=== PATIENT | male | born 1940 | race Caucasian/White ===

== ENCOUNTER 2024-08-20 08:00 | Inpatient (IN) | payer MEDICARE, SELFPAY ==
[2024-08-19 22:29] VITALS: BP 156/78
[2024-08-19] MEDS: TYLENOL 650 MG PO (22:39)
[2024-08-19 22:52] LABS: % Basophils 0.1 % (0-2); % Lymphocytes 5.6 % (20.5-51.1); % Neutrophils 78.3 % (42.2-75.2); Absolute Eosinophils 0.1 10^3/uL (0-0.7); Absolute Immature Granulocytes 0.1 10^3/uL (0-0.05); Absolute Lymphocytes 0.8 10^3/uL (1.2-3.4); Absolute Monocytes 1.9 10^3/uL (0.1-0.6); Absolute Neutrophils 10.6 10^3/uL (1.4-6.5); Hematocrit 29.1 % (39.0-52.0); Hemoglobin 10.2 g/dL (13.0-18.0); Mean Corp Hgb Conc. 35.1 g/dL (33.0-37.0); Mean Corpuscular Volume 88.4 fL (80.0-94.0); Mean Platelet Volume 8.4 fL (7.4-10.4); Nucleated Red Blood Cells % 0 % (-); Platelet Count 209 10^3/uL (130-400); Red Blood Cell Count 3.29 10^6/uL (4.70-6.10); White Blood Cell Count 13.5 10^3/uL (4.8-10.8)
[2024-08-19 22:59] LABS: Lactic Acid 0.9 mmol/L (0.7-2.0)
[2024-08-19 23:08] LABS: ALT (SGPT) 17 U/L (0-50); AST (SGOT) 25 U/L (17-59); Albumin 4.1 g/dl (3.5-5.0); Alkaline Phosphatase 87 U/L (38-126); Blood Urea Nitrogen 24 mg/dl (9-20); Calcium 8.7 mg/dl (8.4-10.2); Carbon Dioxide 24 mmol/L (22-30); Chloride 104 mmol/L (98-107); Glucose 113 mg/dl (70-99); Potassium 3.8 mmol/L (3.5-5.1); Sodium 141 mmol/L (135-145); Total Bilirubin 0.5 mg/dl (0.2-1.3); eGFR 58.89
[2024-08-19 23:50] VITALS: BMI 25.2
[2024-08-20] VITALS (7 sets, daily range): BP systolic 130–177; BP diastolic 65–133; PULSE 84–108
--- NOTE | 2024-08-20 00:10 | ED.GENMED ---
History of Present Illness
<RENO Mcclain - Last Filed: 08/20/24 05:22>
General
Chief Complaint: Skin Problem
Source: patient and family
Exam Limitations: none
Time Seen by Provider: 08/19/24 23:41
Nursing documentation reviewed up to this point in time: agreed with
History of Present Illness
History of Present Illness:
Patient is an 84yo M w/ recently diagnosed cellulitis who presents to ED w/ worsening fever. Sxs started last night w/ redness, swelling, and warmth of L lower leg, fever of 101, and 1 episode of vomiting. Pt went to PCP earlier today and was
started on Keflex and doxycycline. Took 1 dose of each before sxs worsened. Notes PCP was considering admitting pt. Told to go to ER if fever increases or redness/swelling/warmth expands. Reports fever of 102. Pt states he feels fine and does not
currently feel any pain in leg. Pt's family noticed on arrival that redness has spread up leg. He denies increased pain, chest pain, SOB, BEGUM, N/V/D/C. Family also notes concern about dark area on foot that has expanded since earlier today. Looks
like bruising but denies any possibility of injury.
Past History
<Finesse Ortega DO - Last Filed: 08/20/24 01:11>
Past History
ED Past Medical History: Other (Guillain-Cobos�)
ED Past Surgical History: Bowel resection, Orthopedic (Knee replacement) and Other (Eye surgery)
Social History
Tobacco: Non-smoker
Alcohol: None
Drug: None
Personal:
Living: with family
Employment: Retired
Review of Systems
<RENO Mcclain - Last Filed: 08/20/24 05:22>
Review of Systems
Constitutional: Reports fever; Denies fatigue or chills
Respiratory: Denies cough or trouble breathing
Cardiac: Denies chest pain or palpitations
ABD/GI: Denies abdominal pain, nausea, vomiting, diarrhea or constipated
Musculoskeletal: Reports edema; Denies joint pain or muscle pain
Neurological: Denies dizzy, headache or numbness
<Finesse Ortega DO - Last Filed: 08/20/24 01:11>
Review of Systems
Allergies reviewed?: Yes
Phy Exam
<RENO Mcclain - Last Filed: 08/20/24 05:22>
General Physical Exam
General Presentation: no apparent distress
General age: appears stated age
General Skin: warm and dry
General Habitus: elderly
General Mental: alert
Cardiovascular Exam
Cardiovascular Exam: regular rate/rhythm, no edema, no gallop and no murmur
Pulmonary Exam
Pulmonary Exam: lungs clear, no respiratory distress, no rales, no crackles, no rhonchi and no wheezing
Neurological Exam
Neurological Exam: alert, oriented x3, no motor deficits and no sensory deficits
Musculoskeletal Exam
Musculoskeletal Exam: edema (erythema, edema, warmth of L foot and lower leg continuing of medial leg) and other (Unable to fully assess pulses due to tenderness. Pt able to move toes. )
<Finesse Ortega DO - Last Filed: 08/20/24 01:11>
Physical Exam
Physical Exam:
Temperature 101.1
Sepsis
<RENO Mcclain - Last Filed: 08/20/24 05:22>
Sepsis Screening
Sepsis Assessment: Sepsis
Sepsis Screen
Sepsis Screen: Sepsis
Date: 08/20/24
Time: 05:22
Course
<RENO Mcclain - Last Filed: 08/20/24 05:22>
Orders/Labs/Results
Orders:
Orders
08/19/24 22:34
Acetaminophen [Tylenol] 650 mg PO NOW STA
08/19/24 22:40
Complete Blood Count/With Diff Urgent
Comprehensive Metabolic Panel Urgent
Lactic Acid Urgent
08/20/24 01:04
Piperacillin/Tazo 4.5 Gram [Zosyn] 4.5 gram in 100 ml IV NOW
Vancomycin [Vancocin] 2,000 mg 0.9% Sodium Chloride 500 ml [Nss] 500 ml IV NOW
08/20/24 01:32
Vancomycin [Vancocin] 2,000 mg 0.9% Sodium Chloride 500 ml [Nss] 500 ml IV NOW
08/20/24 01:34
Blood Culture Q30M
SHANTI Source: Blood/Venous
Specimen Description:
08/20/24 01:42
Blood Culture Q30M
SHANTI Source: Blood/Venous
Specimen Description:
08/20/24 02:53
Admit/Transfer Patient As Directed
Co-Sign Provider:
Level of Care: Inpatient admission
Assign to:: Medical/Surgical
Physician / Group: Alonso
Diagnosis: LLE Cellulitis / Sepsis
Reason for Hospitalization: LLE Cellulitis / Sepsis
Expected length of stay greater than two midnights?: Yes
ELOS- Estimated Length of Stay in days: 2
I certify the patient meets the requirements for IP care: Yes
PRN Pain Medication Management As Directed
May give lesser potent ordered pain med per pt: Yes
preference::
Protocol:: Medication orders for pain may be administered in a
manner that supports deferring to patient preference
when the pt is:
- Requesting an ordered lesser potent pain medication.
Least to most potent pain medications are defined
as: acetaminophen < NSAID < tramadol < opioids
(morphine, oxycodone, hydromorphone).
- Requesting a lesser dose of the same medication IF
ORDERED.
- Requesting a less intrusive route of administration
if both routes are prescribed by the provider (PO <
IV).
08/20/24 02:54
Code Status As Directed
Resuscitation Status: Full Code
08/20/24 03:40
Acetaminophen [Tylenol] 650 mg PO Q4HPRN PRN
Morphine Sulfate 2 mg IV Q4HPRN PRN
Polyethylene Glycol Powder [Miralax] 17 grams PO DAILY PRN
Zolpidem Tartrate [Ambien] 10 mg PO HSPRN PRN
08/20/24 03:40
Iron Routine
Total Iron Binding Routine
Activity As Directed
Activity Level: Ambulate
With Assistance
Bladder Scan As Directed
Follow Bladder Retention/Intermittent Cath Algorithm?: Yes
PRN if no void in __ hours: 6
Frequency: Per Retention Algorithm
If Bladder Scan Result >: 400
then:: Straight cath
I/O [Intake/ Output] As Directed
Frequency: Per unit guidelines
Orthostatic Vital Signs As Directed
Orthostatic VS Frequency: BID
Straight Cath As Directed
Frequency: Per Retention Algorithm
Additional Instructions: straight cath as needed per acute urinary retention algorithm for 24 hrs
Additional Instructions: for bladder scan greater than 400 mL
Vital Signs As Directed
Frequency: Per unit guidelines
DX Deep Vein Thrombosis Video Routine
08/20/24 Breakfast
Regular
Basic Metabolic Panel IN AM
Complete Blood Count/No Diff IN AM
CeFAZolin 2 GRAM [Ancef] 2 grams in 10 ml IV Q8H
08/20/24 08:00
alfuzosin 10 mg PO DAILY
dutasteride 0.5 mg PO DAILY
lisinopril 20 mg PO DAILY
08/20/24 18:00
Enoxaparin Sodium [Lovenox] 40 mg SC QPM
Abnormal Lab Results
08/19/24
22:40
WBC 13.5 H 10^3/uL
(4.8-10.8)
RBC 3.29 L 10^6/uL
(4.70-6.10)
Hgb 10.2 L g/dL
(13.0-18.0)
Hct 29.1 L %
(39.0-52.0)
Abs Immat Gran (auto) 0.1 H 10^3/uL
(0-0.05)
Absolute Neuts (auto) 10.6 H 10^3/uL
(1.4-6.5)
Absolute Lymphs (auto) 0.8 L 10^3/uL
(1.2-3.4)
Absolute Monos (auto) 1.9 H 10^3/uL
(0.1-0.6)
Immature Gran % 1.0 H %
(0-0.5)
Neutrophils % 78.3 H %
(42.2-75.2)
Lymphocytes % 5.6 L %
(20.5-51.1)
Monocytes % 14.0 H %
(1.7-9.3)
BUN 24 H mg/dl
(9-20)
Glucose 113 H mg/dl
(70-99)
08/19/24 22:40
08/19/24 22:40
Vital Signs
Initial and Last Documented VS:
Initial Vital Signs
Temp Pulse Resp BP Pulse Ox
101.1 F H 107 20 156/78 98
08/19/24 22:29 08/19/24 22:29 08/19/24 22:29 08/19/24 22:29 08/19/24 22:29
Last Documented Vital Signs
Temp Pulse Resp BP Pulse Ox
98.3 F 96 20 132/68 97
08/20/24 02:40 08/20/24 02:40 08/20/24 02:40 08/20/24 02:40 08/20/24 02:40
<Finesse Ortega, DO - Last Filed: 08/20/24 01:11>
Orders/Labs/Results
Orders:
Orders
08/19/24 22:34
Acetaminophen [Tylenol] 650 mg PO NOW STA
08/19/24 22:40
Complete Blood Count/With Diff Urgent
Comprehensive Metabolic Panel Urgent
Lactic Acid Urgent
08/20/24 01:04
Piperacillin/Tazo 4.5 Gram [Zosyn] 4.5 gram in 100 ml IV NOW
Vancomycin [Vancocin] 2,000 mg 0.9% Sodium Chloride 500 ml [Nss] 500 ml IV NOW
08/20/24 01:32
Vancomycin [Vancocin] 2,000 mg 0.9% Sodium Chloride 500 ml [Nss] 500 ml IV NOW
08/20/24 01:34
Blood Culture Q30M
SHANTI Source: Blood/Venous
Specimen Description:
08/20/24 01:42
Blood Culture Q30M
SHANTI Source: Blood/Venous
Specimen Description:
08/20/24 02:53
Admit/Transfer Patient As Directed
Co-Sign Provider:
Level of Care: Inpatient admission
Assign to:: Medical/Surgical
Physician / Group: Alonso
Diagnosis: LLE Cellulitis / Sepsis
Reason for Hospitalization: LLE Cellulitis / Sepsis
Expected length of stay greater than two midnights?: Yes
ELOS- Estimated Length of Stay in days: 2
I certify the patient meets the requirements for IP care: Yes
PRN Pain Medication Management As Directed
May give lesser potent ordered pain med per pt: Yes
preference::
Protocol:: Medication orders for pain may be administered in a
manner that supports deferring to patient preference
when the pt is:
- Requesting an ordered lesser potent pain medication.
Least to most potent pain medications are defined
as: acetaminophen < NSAID < tramadol < opioids
(morphine, oxycodone, hydromorphone).
- Requesting a lesser dose of the same medication IF
ORDERED.
- Requesting a less intrusive route of administration
if both routes are prescribed by the provider (PO <
IV).
08/20/24 02:54
Code Status As Directed
Resuscitation Status: Full Code
08/20/24 03:40
Acetaminophen [Tylenol] 650 mg PO Q4HPRN PRN
Morphine Sulfate 2 mg IV Q4HPRN PRN
Polyethylene Glycol Powder [Miralax] 17 grams PO DAILY PRN
Zolpidem Tartrate [Ambien] 10 mg PO HSPRN PRN
08/20/24 03:40
Iron Routine
Total Iron Binding Routine
Activity As Directed
Activity Level: Ambulate
With Assistance
Bladder Scan As Directed
Follow Bladder Retention/Intermittent Cath Algorithm?: Yes
PRN if no void in __ hours: 6
Frequency: Per Retention Algorithm
If Bladder Scan Result >: 400
then:: Straight cath
I/O [Intake/ Output] As Directed
Frequency: Per unit guidelines
Orthostatic Vital Signs As Directed
Orthostatic VS Frequency: BID
Straight Cath As Directed
Frequency: Per Retention Algorithm
Additional Instructions: straight cath as needed per acute urinary retention algorithm for 24 hrs
Additional Instructions: for bladder scan greater than 400 mL
Vital Signs As Directed
Frequency: Per unit guidelines
DX Deep Vein Thrombosis Video Routine
08/20/24 Breakfast
Regular
Basic Metabolic Panel IN AM
Complete Blood Count/No Diff IN AM
CeFAZolin 2 GRAM [Ancef] 2 grams in 10 ml IV Q8H
08/20/24 08:00
alfuzosin 10 mg PO DAILY
dutasteride 0.5 mg PO DAILY
lisinopril 20 mg PO DAILY
08/20/24 18:00
Enoxaparin Sodium [Lovenox] 40 mg SC QPM
Abnormal Lab Results
08/19/24
22:40
WBC 13.5 H 10^3/uL
(4.8-10.8)
RBC 3.29 L 10^6/uL
(4.70-6.10)
Hgb 10.2 L g/dL
(13.0-18.0)
Hct 29.1 L %
(39.0-52.0)
Abs Immat Gran (auto) 0.1 H 10^3/uL
(0-0.05)
Absolute Neuts (auto) 10.6 H 10^3/uL
(1.4-6.5)
Absolute Lymphs (auto) 0.8 L 10^3/uL
(1.2-3.4)
Absolute Monos (auto) 1.9 H 10^3/uL
(0.1-0.6)
Immature Gran % 1.0 H %
(0-0.5)
Neutrophils % 78.3 H %
(42.2-75.2)
Lymphocytes % 5.6 L %
(20.5-51.1)
Monocytes % 14.0 H %
(1.7-9.3)
BUN 24 H mg/dl
(9-20)
Glucose 113 H mg/dl
(70-99)
08/19/24 22:40
08/19/24 22:40
Vital Signs
Initial and Last Documented VS:
Initial Vital Signs
Temp Pulse Resp BP Pulse Ox
101.1 F H 107 20 156/78 98
08/19/24 22:29 08/19/24 22:29 08/19/24 22:29 08/19/24 22:29 08/19/24 22:29
Last Documented Vital Signs
Temp Pulse Resp BP Pulse Ox
98.3 F 96 20 132/68 97
08/20/24 02:40 08/20/24 02:40 08/20/24 02:40 08/20/24 02:40 08/20/24 02:40
<RENO Mcclain - Last Filed: 08/20/24 05:22>
MDM/Problems Addressed
Differential Diagnosis Includes:
cellulitis, lymphangitis
<Finesse Ortega DO - Last Filed: 08/20/24 01:11>
MDM/Problems Addressed
MDM/Problems Addressed:
84-year-old male with left lower extremity cellulitis. Normal pulses. Do not suspect TEN. Negative lactate, however febrile and leukocytosis. Rapidly progressing infection. IV Zosyn and vancomycin ordered. Admit to hospitalist.
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
<RENO Mcclain - Last Filed: 08/20/24 05:22>
*Critical Care Note
Total Time (30-74mins, 75-104mins- exclusive of procedures): Not Applicable
<Finesse Ortega DO - Last Filed: 08/20/24 01:11>
*Pulse Oximetry
Patient hypoxic: no
<Finesse Ortega DO - Last Filed: 08/20/24 01:11>
Patient Management
Social determinants of health affecting care: Living situation and Strong social support
Discussion with other providers: Hospitalist
Escalation/DeEscalation of care consider admission/obs:
Admit indicated
ED Attending Note
<RENO Mcclain - Last Filed: 08/20/24 05:22>
-
Portions of this chart may have been created with voice recognition software.� Occasional wrong word or��sound alike� substitutions may have occurred due to the inherent limitations of voice recognition software.
<Finesse Ortega, DO - Last Filed: 08/20/24 01:11>
ED Attending Note
Patient seen and examined by attending physician: Yes
I performed a history and physical exam of patient and discussed management with resident, I reviewed resident's note and agree with documented findings and plan of care.: Yes
ED Attending Note:
I have reviewed and agree with history and treatment plan by Anika Mercedes.
Physical Exam
General: Temperature 101.1
Neck: supple. no meningeal signs. normal posterior pharynx
Heart: s1/s2 regular rate and rhythm, no murmur. equal radial
pulses.
HEENT: Pupils equal round reactive to light, EOMI
Lungs: no acute respiratory distress. clear bilaterally
Abdomen: normal bowel sounds. not tender. no CVAT
Neuro: alert and oriented. no focal neurological deficits cranial nerves II through XII intact
Skin: Erythema and cellulitis left foot extending to left thigh
Psychiatric: well kept. interactive and cooperative
Extremities: no edema. no calf tenderness. negative homans. good distal pulses
Discharge Plan
Departure
Patient Disposition: Admit
Date of Disposition: 08/20/24
Time of Disposition: 01:11
Admit to: Med/Surg
Presentation/result/management discussed w/ accepting MD/DO: Hospitalist
Patient with high blood pressure during this ER visit?: Yes
Condition: Fair
Discharge Problem:
Cellulitis of left lower extremity, Fever
Interventions
Interventions:
*Risk Screen - Suicide Last Done: 08/20/24 00:16
*General Assessment Last Done: 08/19/24 22:29
*Neglect/Abuse Screening Last Done: 08/20/24 00:33
ED- Fall Risk Assessment Last Done: 08/19/24 23:58
*ED COVID-19 Vaccine History Last Done: 08/19/24 23:58
ED-Skin Assessment Last Done: 08/19/24 23:58
Assessment and Plan (No Qualifiers)
<RENO Mcclain - Last Filed: 08/20/24 05:22>
Assessment and Plan
(1) Cellulitis of left lower extremity:
Status: Acute
Comment:
rapidly progressing infx - increased fever & redness despite PO abx
Plan:
start IV vancomycin and zosyn
admit to [facility]
<Finesse Ortega DO - Last Filed: 08/20/24 01:11>
Assessment and Plan
(1) Cellulitis of left lower extremity:
[2024-08-20] MEDS: ZOSYN 100 IV (01:16)
[2024-08-20] MEDS: VANCOCIN 540 MG IV (02:43)
--- NOTE | 2024-08-20 02:56 | HPS.HSE ---
Family Physician
-
Family Physician: Raj Brownlee MD
Chief Complaint
-
LLE Pain, Redness
History of Present Illness
Patient is an 84y M with PMH significant for hypertension, BPH and DDD / sciatic pain who presents to ED complaining of L foot and leg pain, swelling and redness x 24 hours. Patient states that he was feeling well until yesterday afternoon when
he noted redness and discomfort in the L foot. Last PM he felt feverish / chilled and had an episode of emesis. He was seen by his PCP today and noted that the redness had extended proximally into his LLE. Patient was placed on oral abx (Keflex
and doxycycline) and advised to present to the ED for further evaluation should his symptoms continue to progress.
Patient and family appreciated continued extension of erythema proximally and presented to the ED for further evaluation.
Patient denies any recent trauma, injury, insult, etc to the L foot prior to onset of his symptoms.
Medical History
Past Medical History
Past Medical History: Reports Other
Additional Past Medical History:
Hypertension
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
BPH
Colon Cancer (Surgery and Chemo)
GERD
DDD / Sciatica
Past Surgical History: Reports Other
Additional Past Surgical History:
Left Hemicolectomy
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
Pyloric Stenosis Repair
Hernia Repair
Knee Arthroscopy
Cataracts
Social History
Tobacco: Former Smoker (Quit smoking 60 years ago. Minimal total use.)
Alcohol: None
Drug: None
Family History
Family History: Not pertinent
Allergies / Home Medications
Allergies reflects when Allergies were last updated in [facility].
Home Medications with original date entered in [facility]
Allergy/Medication List:
Allergies
Allergy/AdvReac Type Severity Reaction Status Date / Time
iodine Allergy 'Deadly' Verified 08/19/24 22:29
Home Medications
alfuzosin 10 mg tablet,extended release 24 hr 10 mg PO DAILY 08/20/24
dutasteride 0.5 mg PO DAILY 08/20/24
fluticasone propionate 50 mcg/actuation nasal spray,suspension 1 spray intranasal DAILY 08/20/24
lisinopril 20 mg PO DAILY 08/20/24
polyethylene glycol 3350 17 gram oral powder packet (Miralax) 1 g PO Q48H 08/20/24
zolpidem 10 mg tablet 10 mg PO DAILY 08/20/24
Review of Systems
-
History Source: Patient
A 12 point ROS was completed and negative except as noted: Yes
Constitutional: Reports Fever; Denies Fatigue or Chills
EENT: Denies Sore Throat
Respiratory: Denies Cough or Trouble Breathing
Cardiac: Denies Chest Pain or Palpitations
Abdomen/GI: Reports Nausea and Vomiting; Denies Abdominal Pain or Diarrhea
: Denies Dysuria, Frequency or Flank Pain
Musculoskeletal: Reports Edema; Denies Joint Pain
Skin: Reports Other (Redness / Foot pain)
Neurological: Denies Dizzy or Headache
Psych: Denies Depression or Anxiety
Physical Exam
Vital Signs
Vital Signs
Temp Pulse Resp BP Pulse Ox
98.3 F 96 20 132/68 97
08/20/24 02:40 08/20/24 02:40 08/20/24 02:40 08/20/24 02:40 08/20/24 02:40
Physical Exam
General: Other (84y M in no acute distress.)
HEENT: Moist mucous membranes
Respiratory: Clear; No Wheezes, Rales or Rhonchi
Cardiac: S1/S2 and Regular Rhythm; No Murmur
GI: Soft, Non Tender, Non Distended and Normal Bowel Sounds
Musculoskeletal: No Clubbing and No Cyanosis
Skin: Other (Erythema, induration and increased warmth of the L foot with purpuric / ecchymotic area on the dorsum of the foot. Erythema / warmth extends proximally along the posterior leg to the thigh.)
Neuro: AO x 3
Laboratory Results
-
08/19/24 22:40
08/19/24 22:40
Laboratory Results
Lactic Acid 0.9 mmol/L (0.7-2.0) 08/19/24 22:40
Total Bilirubin 0.5 mg/dl (0.2-1.3) 08/19/24 22:40
AST 25 U/L (17-59) 08/19/24:40
ALT 17 U/L (0-50) 08/19/24:40
Alkaline Phosphatase 87 U/L (38-126) 08/19/24 22:40
Impression/Plan
-
A/P: Patient is an 84y M with PMH significant for HTN and BPH who presents to ED complaining of LLE pain, swelling and redness that has been rapidly progressive over the past 24 hours.
LLE Cellulitis
Sepsis secondary to the above
- Admit for further evaluation and treatment.
- Patient presents with fever, leukocytosis and tachycardia with clinically evident LLE cellulitis.
- Continue IV abx with Ancef for now and follow for clinical improvement.
- Transition back to PO regimen once clear clinical improvement is appreciated.
- Supportive care including pain control, etc.
- Follow for any new / worsening symptoms.
Benign Hypertension
- Stable. Continue outpatient regimen and adjust as needed.
BPH
- Stable. Continue outpatient medications.
- Bladder scan protocol / straight cath if needed.
Normocytic Anemia
- No recent baseline - last labs on file were several years ago.
- No reported bleeding / gross blood loss.
- Check iron studies, etc.
- Follow for changes in H&H.
DVT Prophylaxis: Lovenox
Code Status: Full
[2024-08-20] MEDS: MORPHINE SULFATE 2 MG IV ×2 (04:36→21:47)
[2024-08-20] MEDS: TYLENOL 650 MG PO (04:36)
[2024-08-20 05:59] LABS: Hematocrit 26.4 % (39.0-52.0); Hemoglobin 9.2 g/dL (13.0-18.0); Mean Corp Hgb Conc. 34.8 g/dL (33.0-37.0); Mean Corpuscular Hgb 30.9 pg (27.0-31.0); Mean Corpuscular Volume 88.6 fL (80.0-94.0); Mean Platelet Volume 8.6 fL (7.4-10.4); Platelet Count 203 10^3/uL (130-400); Red Blood Cell Count 2.98 10^6/uL (4.70-6.10); Red Cell Dist. Width 13.1 % (11.5-14.5); White Blood Cell Count 12.8 10^3/uL (4.8-10.8)
[2024-08-20] MEDS: ANCEF 10 IV ×3 (06:03→21:27)
[2024-08-20 06:12] LABS: Blood Urea Nitrogen 22 mg/dl (9-20); Calcium 8.1 mg/dl (8.4-10.2); Carbon Dioxide 21 mmol/L (22-30); Chloride 107 mmol/L (98-107); Estimated Creatinine Clearance 49 ml/min; Glucose 109 mg/dl (70-99); Potassium 3.8 mmol/L (3.5-5.1); Sodium 142 mmol/L (135-145); eGFR 58.89
[2024-08-20 06:17] LABS: Iron < 20 ug/dl (49-181); Total Iron Binding Capacity 211 ug/dl (261-462)
[2024-08-20] MEDS: PROSCAR 5 MG PO (08:54)
[2024-08-20] MEDS: ZESTRIL 20 MG PO (08:54)
--- NOTE | 2024-08-20 13:23 | CM ---
CM following re: discharge planning.
Reviewed pt's chart, met with pt.
Pt is an 84 year old male, admitted with OBS status and primary dx of Cellulitis. OBS status explained to the pt, pt expressed understanding. FELICIANO letter signed, placed on chart, pt has a copy.
Pt reports he lives with spouse in an apartment 2nd floor with elevator, has 2 supportive children. Pt described himself as independent in all areas [employer], uses a cane as needed and likes shopping. No VN or SNF history.
PCP: Raj Esparza
[facility]
D/C plan: home with anticipated no needs. Family to transport at discharge. Pt stated he does not drive anymore.
CM will follow with discharge plan updates as hospitalization progresses
--- NOTE | 2024-08-20 13:42 | W.PN.HOSP.TC ---
Today's Communication/Plan
-
cont IV ancef
Assessment / Plan
Assessment / Plan
pt is an 84 year old male
LLE Cellulitis with Sepsis (POA)--apparently left leg red all the way up to groin (ink markings for outline present)--much improved today--cont ancef--may localize to foot--consider podiatry consult
Essential Hypertension - Stable. Continue outpatient regimen and adjust as needed.
BPH - Stable. Continue outpatient medications.
Normocytic Anemia--likely of chronic disease--iron studies show low iron BUT no ferritin ordered - No recent baseline - last labs on file were several years ago - No reported bleeding / gross blood loss.
DVT Prophylaxis: Lovenox
Code Status: Full
Anticipated Discharge: 24 - 48 hours
Subjective/Interval History
-
Date of Service: August 20, 2024
pt 'bored' being here
Objective Data
-
Labs:
Laboratory Results
08/20/24
05:24
WBC 12.8 H
Hgb 9.2 L
Hct 26.4 L
Plt Count 203
Sodium 142
Potassium 3.8
Chloride 107
Carbon Dioxide 21 L
BUN 22 H
Creatinine 1.2
Glucose 109 H
Calcium 8.1 L
Vital Signs:
max temp for 24 hours
08/19/24
22:29
Temp 101.1 F H
Vital Signs
Temp Pulse Resp BP Pulse Ox
97.9 F 75 20 140/65 98
08/20/24 07:55 08/20/24 08:54 08/20/24 07:55 08/20/24 08:54 08/20/24 07:55
I&O
08/19/24 08/20/24 08/21/24
06:59 06:59 05:59
Intake Total 310 / 310
Balance 310 / 310
Review of Systems
-
All other systems: Reviewed and negative
Physical Exam
-
General: Well Developed, Well Nourished and No Apparent Distress
HEENT: Normocephalic and Atraumatic
Respiratory: Clear to Auscultation; Negative Wheezes or Rhonchi
Cardiac: Regular Rhythm and S1/S2; Negative Murmur
GI: Soft, Nontender, Nondistended and Normal Bowel Sounds
Musculoskeletal: No Clubbing, No Cyanosis and No Edema
Neuro: Awake
Psych: Calm
[2024-08-20] MEDS: LOVENOX 40 MG SC (17:17)
[2024-08-21] MEDS: MORPHINE SULFATE 2 MG IV ×2 (04:22→21:19)
[2024-08-21] MEDS: ANCEF 10 IV ×3 (05:01→21:19)
[2024-08-21 06:32] LABS: Hematocrit 28.7 % (39.0-52.0); Mean Corp Hgb Conc. 34.8 g/dL (33.0-37.0); Mean Corpuscular Hgb 32.1 pg (27.0-31.0); Mean Platelet Volume 8.8 fL (7.4-10.4); Platelet Count 225 10^3/uL (130-400); Red Blood Cell Count 3.12 10^6/uL (4.70-6.10); Red Cell Dist. Width 12.9 % (11.5-14.5); White Blood Cell Count 8.4 10^3/uL (4.8-10.8)
[2024-08-21 06:58] LABS: Blood Urea Nitrogen 20 mg/dl (9-20); Calcium 8.5 mg/dl (8.4-10.2); Carbon Dioxide 23 mmol/L (22-30); Chloride 106 mmol/L (98-107); Estimated Creatinine Clearance 62 ml/min; Glucose 96 mg/dl (70-99); Magnesium 2.1 mg/dl (1.6-2.3); Sodium 143 mmol/L (135-145); eGFR > 60.00
[2024-08-21 07:50] VITALS: BP 133/94
[2024-08-21] MEDS: ZESTRIL 20 MG PO (08:44)
[2024-08-21] MEDS: PROSCAR 5 MG PO (08:44)
[2024-08-21] MEDS: FLOMAX 0.4 MG PO (08:44)
[2024-08-21 10:30] VITALS: BP 120/78; PULSE 96
--- NOTE | 2024-08-21 11:56 | W.PN.HOSP.TC ---
Today's Communication/Plan
-
MRI L/S spine
decadron x1
will consult podiatry on Thursday
Assessment / Plan
Assessment / Plan
pt is an 84 year old male
LLE Cellulitis with Sepsis (POA)--apparently left leg red all the way up to groin (ink markings for outline present)--much improved--cont ancef--appears to be localizing to foot--consult podiatry Thursday
sciatic--seeing Dr. Freeman --will give one dose of IV decadron x1--will order MRI L/S spine--pt relays decreased sensation in groin since GBS in 1970.....
Essential Hypertension - Stable. Continue outpatient regimen and adjust as needed.
BPH - Stable. Continue outpatient medications.
Normocytic Anemia--likely of chronic disease--iron studies show low iron BUT no ferritin ordered - No recent baseline - last labs on file were several years ago - No reported bleeding / gross blood loss.
DVT Prophylaxis: Lovenox
Code Status: Full
Anticipated Discharge: 24 - 48 hours
Subjective/Interval History
-
Date of Service: August 21, 2024
pt c/o of severe sciatic pain and right wrist pain--has no c/o re: his foot
Objective Data
-
Labs:
Laboratory Results
08/21/24
05:54
WBC 8.4
Hgb 10.0 L
Hct 28.7 L
Plt Count 225
Sodium 143
Potassium 4.0
Chloride 106
Carbon Dioxide 23
BUN 20
Creatinine 1.0
Glucose 96
Calcium 8.5
Vital Signs:
max temp for 24 hours
08/20/24
23:30
Temp 99.1 F
Vital Signs
Temp Pulse Resp BP Pulse Ox
99.2 F 87 14 133/94 99
08/21/24 07:50 08/21/24 08:44 08/21/24 07:50 08/21/24 08:44 08/21/24 07:50
I&O
08/20/24 08/21/24 08/22/24
07:59 06:59 06:59
Intake Total
Output Total
Balance
Review of Systems
-
All other systems: Reviewed and negative
Musculoskeletal: Reports Other (sciatic and right wrist pain)
Physical Exam
-
General: Well Developed, Well Nourished, Appears in Distress and Pain
HEENT: Normocephalic and Atraumatic
Respiratory: Clear to Auscultation; Negative Wheezes or Rhonchi
Cardiac: Regular Rhythm and S1/S2; Negative Murmur
GI: Soft, Nontender, Nondistended and Normal Bowel Sounds
Musculoskeletal: No Clubbing, No Cyanosis and Other (left foot still swollen--red localizing to dorsum of foot)
Neuro: Awake
[2024-08-21] MEDS: DECADRON 10 MG IV (11:59)
[2024-08-21 12:39] LABS: Uric Acid 5.7 mg/dl (3.5-8.5)
[2024-08-21 15:30] VITALS: BP 167/84
[2024-08-21] MEDS: LOVENOX 40 MG SC (17:19)
[2024-08-21 17:41] VITALS: BP 167/84; PULSE 83
[2024-08-21] MEDS: AMBIEN 10 MG PO (21:19)
[2024-08-21 23:30] VITALS: BP 142/70
[2024-08-22] MEDS: MORPHINE SULFATE 2 MG IV ×2 (05:29→21:42)
[2024-08-22] MEDS: ANCEF 10 IV ×3 (05:30→21:44)
[2024-08-22 07:30] VITALS: BP 148/76
[2024-08-22 08:31] LABS: Hematocrit 27.5 % (39.0-52.0); Hemoglobin 9.7 g/dL (13.0-18.0); Mean Corp Hgb Conc. 35.3 g/dL (33.0-37.0); Mean Corpuscular Volume 90.8 fL (80.0-94.0); Mean Platelet Volume 8.7 fL (7.4-10.4); Platelet Count 238 10^3/uL (130-400); Red Blood Cell Count 3.03 10^6/uL (4.70-6.10); Red Cell Dist. Width 12.7 % (11.5-14.5); White Blood Cell Count 6.6 10^3/uL (4.8-10.8)
[2024-08-22 08:59] LABS: Blood Urea Nitrogen 21 mg/dl (9-20); Calcium 8.7 mg/dl (8.4-10.2); Carbon Dioxide 25 mmol/L (22-30); Chloride 105 mmol/L (98-107); Estimated Creatinine Clearance 62 ml/min; Glucose 104 mg/dl (70-99); Magnesium 2.1 mg/dl (1.6-2.3); Potassium 3.9 mmol/L (3.5-5.1); Sodium 144 mmol/L (135-145); eGFR > 60.00
[2024-08-22] MEDS: PROSCAR 5 MG PO (09:34)
[2024-08-22] MEDS: ZESTRIL 20 MG PO (09:34)
[2024-08-22] MEDS: FLOMAX 0.4 MG PO (09:34)
[2024-08-22] MEDS: TYLENOL 650 MG PO ×2 (09:39→23:09)
--- NOTE | 2024-08-22 14:03 | CM ---
Patient seen at bedside with physicians. Patient stated that he has voted prior to admission and does not need ballot. Patient is now INP and updated about status, provided IMM. Patient is for further testing and CM will continue to follow for
discharge planning needs.
Plan; home with VN; watch for possible IV antibiotics.
[2024-08-22 15:10] VITALS: BP 128/66
[2024-08-22] MEDS: LOVENOX 40 MG SC (17:15)
--- NOTE | 2024-08-22 18:16 | W.PN.HOSP.TC ---
Addendum entered and electronically signed by Keke Frey MD 08/22/24 19:21:
I saw and evaluated the patient independently. I reviewed the resident�s note and agree with findings and plan as documented by Dr. Szymanski.
GENERAL: well developed, well nourished, male in no apparent distress
HEENT: NC/AT
HEART: regular rate and rhythm, +S1, +S2
LUNGS : clear to auscultation bilaterally
ABDOM: soft, nontender, nondistended, + bowel sounds
EXT: no cyanosis, clubbing, or edema--left foot with improving redness but coalescing to dorsum of foot
NEUROLOGIC: grossly intact--back pain resolved
LLE Cellulitis with Sepsis (POA)--apparently left leg red all the way up to groin (ink markings for outline present)--much improved--cont ancef--appears to be localizing to foot--await podiatry input
sciatic--seeing Dr. 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
Essential Hypertension - Stable. Continue outpatient regimen and adjust as needed.
BPH - Stable. Continue outpatient medications.
Normocytic Anemia--likely of chronic disease--iron studies show low iron BUT no ferritin ordered - No recent baseline - last labs on file were several years ago - No reported bleeding / gross blood loss.
DVT Prophylaxis: Lovenox
Code Status: Full
Original Note:
Today's Communication/Plan
-
continue ancef, podiatry consult
Assessment / Plan
Assessment / Plan
84yo M with PMH sciatic pain (sees Dr. Freeman), essential hypertension, BPH who presented to ED 08/19/24 for worsening of LLE pain, swelling, redness. Prior to admission, he initially presented to PCP who prescribed oral keflex and doxycycline and
advised patient that if symptoms progress further to be evaluated at ED. Symptoms worsened over 24 hours.
LLE cellulitis with sepsis present on admission
- Prior documentation indicates LLE redness extended up to groin on admission
- Started on ancef on admission --> continue IV ancef
- Pain and redness significantly improved throughout leg however appears to be localizing to L dorsum of foot
- Podiatry consulted
Sciatic pain
- S/p IV decadron x1
- MRI lumbar/spine shows multilevel degenerative disc disease, multifocal spinal canal and neuroforaminal narrowing. Prominent edema of L lower paraspinal soft tissue/musculature- may represent muscular injury/strain.
- Continue supportive measures
Essential hypertension- Continue home lisinopril 20mg qd
BPH- Continue home alfuzosin, dutasteride (tamsulosin/flomax and finasteride while inpatient)
Normocytic anemia- likely anemia of chronic disease, iron studies show low Fe but no ferritin ordered. No signs/symptoms of bleeding/bruising/blood loss.
Code status: full
VTE ppx: lovenox
Diet: regular
Dispo planning: anticipate SNF PT following
Anticipated Discharge: 24 - 48 hours
Subjective/Interval History
-
Date of Service: August 22, 2024
No acute events overnight per nursing. Patient in MRI at time of AM rounds, seen in afternoon. Feeling well except for chronic sciatic pain. No complaints regarding left foot.
Objective Data
-
Labs:
Laboratory Results
08/22/24
07:56
WBC 6.6
Hgb 9.7 L
Hct 27.5 L
Plt Count 238
Sodium 144
Potassium 3.9
Chloride 105
Carbon Dioxide 25
BUN 21 H
Creatinine 1.0
Glucose 104 H
Calcium 8.7
Vital Signs:
Vital Signs
Temp Pulse Resp BP Pulse Ox
98.7 F 68 18 128/66 98
08/22/24 15:10 08/22/24 15:10 08/22/24 15:10 08/22/24 15:10 08/22/24 15:10
I&O
08/21/24 08/22/24 08/23/24
06:59 06:59 06:59
Intake Total 1380 / 1380 480 / 480
Output Total 500 / 500 400 / 400
Balance 880 / 880 80 / 80
Review of Systems
-
History Source: Patient
All other systems: Reviewed and negative
Physical Exam
-
General: Well Developed, Well Nourished, Appears in Distress and Conversant
HEENT: Normocephalic and Atraumatic
Respiratory: Non Labored Respirations
Cardiac: Regular Rhythm
GI: Soft, Nontender and Nondistended
Musculoskeletal: Other (left foot still swollen--red localizing to dorsum of foot)
Skin: Warm, Dry and Other (wound present L dorsum foot)
Neuro: Awake, Alert and Oriented
Psych: Calm and Intact Judgement/Insight
Data Reviewed
-
Labs: Labs Reviewed by me
[2024-08-22 23:21] VITALS: BP 128/81
[2024-08-22] MEDS: LIORESAL 5 MG PO (23:39)
[2024-08-23] MEDS: TYLENOL 1000 MG PO (00:34)
[2024-08-23] MEDS: ANCEF 10 IV ×3 (06:30→21:47)
[2024-08-23] MEDS: MORPHINE SULFATE 2 MG IV ×2 (06:30→10:46)
[2024-08-23 07:25] VITALS: BP 152/78
[2024-08-23] MEDS: FLOMAX 0.4 MG PO (07:49)
[2024-08-23] MEDS: ZESTRIL 20 MG PO (07:49)
[2024-08-23] MEDS: PROSCAR 5 MG PO (07:50)
[2024-08-23 07:52] LABS: Hematocrit 27.9 % (39.0-52.0); Hemoglobin 9.7 g/dL (13.0-18.0); Mean Corp Hgb Conc. 34.8 g/dL (33.0-37.0); Mean Corpuscular Hgb 30.8 pg (27.0-31.0); Mean Corpuscular Volume 88.6 fL (80.0-94.0); Mean Platelet Volume 8.7 fL (7.4-10.4); Platelet Count 263 10^3/uL (130-400); Red Blood Cell Count 3.15 10^6/uL (4.70-6.10); Red Cell Dist. Width 12.7 % (11.5-14.5); White Blood Cell Count 6.8 10^3/uL (4.8-10.8)
[2024-08-23 08:43] LABS: Blood Urea Nitrogen 22 mg/dl (9-20); Calcium 8.4 mg/dl (8.4-10.2); Carbon Dioxide 26 mmol/L (22-30); Chloride 104 mmol/L (98-107); Estimated Creatinine Clearance 62 ml/min; Glucose 109 mg/dl (70-99); Magnesium 1.9 mg/dl (1.6-2.3); Potassium 3.8 mmol/L (3.5-5.1); Sodium 144 mmol/L (135-145); eGFR > 60.00
--- NOTE | 2024-08-23 08:52 | W.PN.HOSP.TC ---
Addendum entered and electronically signed by Keke Frey MD 08/23/24 15:34:
I saw and evaluated the patient independently. I reviewed the resident�s note and agree with findings and plan as documented by Dr. Szymanski.
GENERAL: well developed, well nourished, male in no apparent distress
HEENT: NC/AT
HEART: regular rate and rhythm, +S1, +S2
LUNGS : clear to auscultation bilaterally
ABDOM: soft, nontender, nondistended, + bowel sounds
EXT: no cyanosis, clubbing, or edema--left foot with improving redness but coalescing to dorsum of foot
NEUROLOGIC: grossly intact--back pain resolved
LLE Cellulitis with Sepsis (POA)--apparently left leg red all the way up to groin (ink markings for outline present)--much improved--cont ancef--appears to be localizing to foot--await podiatry input--apprec ID input
sciatic--seeing Dr. Freeman --will give one dose of IV decadron x1, gave another x 1-- MRI L/S spine with chronic degenerative changes--pt relays decreased sensation in groin since GBS in 1970.....f/u with outpt ortho--PT/OT
Essential Hypertension - Stable. Continue outpatient regimen and adjust as needed.
BPH - Stable. Continue outpatient medications.
Normocytic Anemia--likely of chronic disease--iron studies show low iron BUT no ferritin ordered - No recent baseline - last labs on file were several years ago - No reported bleeding / gross blood loss.
DVT Prophylaxis: Lovenox
Code Status: Full
Original Note:
Today's Communication/Plan
-
foot xray, podiatry consult, ID consult, add gabapentin for sciatic pain
Assessment / Plan
Assessment / Plan
84yo M with PMH sciatic pain (sees Dr. Freeman), essential hypertension, BPH who presented to ED 08/19/24 for worsening of LLE pain, swelling, redness. Prior to admission, he initially presented to PCP who prescribed oral keflex and doxycycline and
advised patient that if symptoms progress further to be evaluated at ED. Symptoms worsened over 24 hours.
LLE cellulitis with sepsis present on admission
- Prior documentation indicates LLE redness extended up to groin on admission
- Started on ancef on admission --> continue IV ancef
- Pain and redness significantly improved throughout leg however appears to be localizing to L dorsum of foot
- Podiatry consulted, xray ordered for this AM
- Consult ID, appreciate recs
Sciatic pain
- S/p IV decadron x1
- MRI lumbar/spine shows multilevel degenerative disc disease, multifocal spinal canal and neuroforaminal narrowing. Prominent edema of L lower paraspinal soft tissue/musculature- may represent muscular injury/strain.
- Continue supportive measures
- Will add gabapentin 100mg BID
Essential hypertension- Continue home lisinopril 20mg qd
BPH- Continue home alfuzosin, dutasteride (tamsulosin/flomax and finasteride while inpatient)
Normocytic anemia- likely anemia of chronic disease, iron studies show low Fe but no ferritin ordered. No signs/symptoms of bleeding/bruising/blood loss.
Code status: full
VTE ppx: lovenox
Diet: regular
Dispo planning: anticipate SNF, PT following
Anticipated Discharge: 24 - 48 hours
Subjective/Interval History
-
Date of Service: August 23, 2024
Overnight, patient reports extremely poor sleep due significant pain in back/hip. Says the pain medications take the edge off but do not provide significant relief. Patient seen at bedside this morning while transferring from bed to stretcher with 2
person assist and walker. Complains of significant pain in back/hip. Otherwise no complaints, denies pain in foot.
Objective Data
-
Labs:
Laboratory Results
08/23/24
07:14
WBC 6.8
Hgb 9.7 L
Hct 27.9 L
Plt Count 263
Sodium 144
Potassium 3.8
Chloride 104
Carbon Dioxide 26
BUN 22 H
Creatinine 1.0
Glucose 109 H
Calcium 8.4
Vital Signs:
Vital Signs
Temp Pulse Resp BP Pulse Ox
97.6 F 92 18 152/78 98
08/23/24 07:25 08/23/24 07:25 08/23/24 07:25 08/23/24 07:25 08/22/24 23:21
I&O
08/22/24 08/23/24 08/24/24
06:59 06:59 06:59
Intake Total 1380 / 1380 720 / 720
Output Total 500 / 500 1150 / 1150
Balance 880 / 880 -430 / -430
Review of Systems
-
History Source: Patient
All other systems: Reviewed and negative
Physical Exam
-
General: Well Developed, Well Nourished, Appears in Distress (appears uncomfortable, in acute pain), Conversant and Other (exam limited by significant pain and patient transferring for xray foot)
HEENT: Normocephalic and Atraumatic
Respiratory: Non Labored Respirations
Neuro: Awake, Alert and Oriented
Psych: Calm and Intact Judgement/Insight
Data Reviewed
-
Labs: Labs Reviewed by me
[2024-08-23] MEDS: DECADRON 10 MG IV (10:00)
[2024-08-23] MEDS: NEURONTIN 100 MG PO ×2 (12:02→20:27)
[2024-08-23] MEDS: TYLENOL 650 MG PO ×3 (12:02→20:27)
--- NOTE | 2024-08-23 12:48 | PTCARENOTE ---
Patient unable to bear weight on left leg. Needs assistance of two people to get from recliner to stretcher. Complains of severe pain in left hip area that radiates down left leg. Patient given IV steroids as ordered and medicated with morphine IV.
Neurontin and tylenol also ordered and administered.
--- NOTE | 2024-08-23 13:33 | CON.ID ---
Consultation
-
Date/Time Consultation Requested: 08/23/2024 1149
Date/Time Consultation Performed: 08/23/2024 1330
Requesting Provider: Dr. Shantell Szymanski
Performing Provider: Dr. Sailaja Mark
Reason for Consultation: Cellulitis
Chief Complaint / Past History
Chief Complaint
Left foot redness and swelling
History of Present Illness
History obtained from patient and from family at bedside. He is an 84-year-old male with hypertension, left-sided lumbar radiculopathy, who presented to the ER on August 19 at midnight with left foot redness and swelling extending up his leg. He
noted left foot discomfort the afternoon of August 18. The redness spread up the leg. He had fevers and chills. He saw his primary care physician the morning of August 19. He was prescribed cephalexin 500 g every 6 hours and doxycycline. He
took 1 dose of each antibiotic. However the erythema continued to ascend up to his groin. He therefore came to the ER. He was febrile 101.1. White count of 13.5. He was started on IV cefazolin. The erythema has receded from the groin, leg and
now localized to the mid to forefoot. He noted blister formation on his foot. He denies injury or trauma to the foot. He does have athlete's foot and uses [id number] topical antifungal. No further fevers. White count has resolved. The
foot is not as bright red as previous. He complains of his left sciatica pain.
Past History
Additional Past Medical History:
HTN
left Sciatica
BPH
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
Colon Ca s/p left hemicolectomy, chemo
Pyloric stenosis repair
Hernia repair
Allergy History:
iodine Allergy (Verified 08/19/24 22:29)
'Deadly'
Medications Reviewed: Yes
Current Antibiotics:
Cefazolin d4
Social History
Tobacco: Former Smoker
Alcohol: None
Drug: None
Living: With Family
Family History
Family History: Not Pertinent
Review of Systems
Review of Systems
HEENT: Negative Sinus Problems, Headache or Pharyngitis
Cardiovascular: Negative Chest Pain or Dyspnea
Respiratory: Negative Dyspnea or Cough
Gasteroenterology: Negative Nausea, Vomiting or Diarrhea
Genital / Urological: Negative Dysuria or Flank Pain
Neurological: Negative Dizziness
All systems: All other systems were reviewed and were negative
Vital Signs
Temp Pulse Resp BP Pulse Ox
97.6 F 92 18 152/78 98
08/23/24 07:25 08/23/24 07:25 08/23/24 07:25 08/23/24 07:25 08/22/24 23:21
Physical Exam
Physical Exam
Constitutional: No Acute Distress and Comfortable
Eyes: No Conjunctival Hemorrhage and Sclera Anicteric
Cardiovascular: Regular Rate and S1/S2
Pulmonary: Clear
Gastrointestinal: Soft, Non Tender, Non Distended, Normal Bowel Sounds and Decreased Bowel Sounds
Genito-Urinary: Negative CVA Tenderness
Extremities: Edema (left foot 2+ edema), Erythema (Dorsal left foot; mild to mod erythema fore-foot to midfoot, mildly warm, + blister. + tinea toe webs. ) and Pulses (+ pedal pulses)
Neurological: AO x 3
Lab / Diagnostic Study Results
08/23/24 07:14
08/23/24 07:14
Abs Immat Gran (auto) 0.1 10^3/uL (0-0.05) H 08/19/24 22:40
Absolute Neuts (auto) 10.6 10^3/uL (1.4-6.5) H 08/19/24 22:40
Absolute Lymphs (auto) 0.8 10^3/uL (1.2-3.4) L 08/19/24 22:40
Absolute Monos (auto) 1.9 10^3/uL (0.1-0.6) H 08/19/24 22:40
Absolute Basos (auto) 0.0 10^3/uL (0-0.2) 08/19/24 22:40
Immature Gran % 1.0 % (0-0.5) H 08/19/24 22:40
Neutrophils % 78.3 % (42.2-75.2) H 08/19/24 22:40
Lymphocytes % 5.6 % (20.5-51.1) L 08/19/24 22:40
Monocytes % 14.0 % (1.7-9.3) H 08/19/24 22:40
Eosinophils % 1.0 % (0-6) 08/19/24 22:40
Basophils % 0.1 % (0-2) 08/19/24 22:40
Lactic Acid 0.9 mmol/L (0.7-2.0) 08/19/24 22:40
Microbiology Results
Micro:
08/20/24 01:34 Blood Culture - Preliminary
Blood/Venous No Growth in 72 hours- Final report to follow
08/20/24 01:42 Blood Culture - Preliminary
Blood/Venous No Growth in 72 hours- Final report to follow
08/23/24 Foot XRAY: Mild soft tissue swelling along the dorsum of the forefoot without radiographic evidence of underlying osteomyelitis.
08/22/24 MRI lumbar spine: There is grade 1 anterolisthesis of L5 on S1 with multilevel degenerative disc disease and facet arthropathy with resultant multifocal spinal canal and neuroforaminal narrowing. Findings are most pronounced at the L5-S1
level where there is mild/moderate canal stenosis, moderate right-sided neuroforaminal narrowing and severe left-sided neuroforaminal narrowing. Individual characterizations as above. There is prominent edema within the left lower paraspinal soft
tissues/musculature extending to the left L5-S1 facet, which may represent muscular injury/strain.
Assessment / Plan
# Left foot/leg cellulitis
# Fever and leukocytosis resolved
- Suspect streptococcal cellulitis
- Significant improvement of cellulitis. Erythema has receded from groin and localized to foot which is also improving and not a concern.
- Continue cefazolin.
- At time of discharge, he can resume home cefazolin 500mg po qid x 9-10d.
- Tinea pedis can serve as portal for bacterial entry. Ordered topical clotrimazole cream.
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
HTN
left Sciatica
BPH
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
Colon Ca s/p left hemicolectomy, chemo
Pyloric stenosis repair
Hernia repair
--- NOTE | 2024-08-23 14:10 | CM ---
Patient seen at bedside with physicians and patient present. Patient plan is home with VN but pending consults per physician. Patient seen by PT/OT and recommendation is for SNF. Patient continues to talk about going home. IMM reviewed and
placed on chart. CM will continue to follow for discharge planning needs.
Plan; SNF vs home with VN; pending physician assessments/PT/OT assessments
[2024-08-23 15:15] VITALS: BP 152/81
[2024-08-23] MEDS: LOVENOX 40 MG SC (17:50)
--- NOTE | 2024-08-23 19:51 | W.CS.POD ---
Consult Summary - Podiatry
-
This patient is an 84 year old male admitted through ER on 08/19/24 with cellulitis of the LLE. History of present illness obtained from patient and his , Mari. The patient developed pain and redness along the top of the left foot on
Thursday 08/16. The following day he noticed the redness spreading to his leg, pain in his groin, and developed fever and chills. He was seen in his PCP's office on 08/18 and was prescribed Keflex/Doxicycline and told to go to the ER if his
symptoms persisted. Having taken only one dose of the antibiotics he came to the ER later that night. On IV Cefazolin, the cellulitis of the LLE has receded, now focal to the dorsum of the foot. Podiatry has been consulted to evaluate the left foot
and the blister overlying the focus of the cellultis.
The patient denies fever, chills or sweats. The foot is moderately painful to touch only. He denies any trauma to the foot, nor exposure to any chemicals, etc.
Afebrile, VSS. Current WBC 6.8
On admission: Temp 101.1 WBC: 13.5
08/23/24 XRAYS, left foot: Mild soft tissue swelling along the dorsum of the forefoot without radiographic evidence of underlying osteomyelitis.
Exam reveals pedal pulses are palpable, bilaterally. Moderate edema, erythema and cellulitis localized to the dorsolateral left midfoot/forefoot. The area is quite painful. There is a superficial blister, approximately 1.5cm diameter round, 3cm
proximal to the digital interspaces. Debridement of the lesion reveals no deep extension or tracking. There is dry scaling of the interdigital areas, without maceration or open lesions communicating with the cellulitis clinically.
Assessment:
Cellulitis with possible deep abscess of unclear origin, left foot.
LLE cellulitis improved with IV antibiotics.
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
Lumbar Radiculopathy, left side
HTN
H/O Colon CA, s/p hemicolectomy, chemo
Plan:
ID note appreciated.
Continue IV antibiotics for now.
MRI of the left foot to evaluate for abscess ordered for tomorrow.
Consider need for I & D.
[2024-08-23] MEDS: LOTRIMIN 1% CREAM 1 APPLIC TOPICAL (21:47)
[2024-08-23] MEDS: AMBIEN 10 MG PO (21:48)
[2024-08-23 23:00] VITALS: BP 129/70; BP 145/76; PULSE 82; PULSE 90
[2024-08-24 00:06] VITALS: BP 129/70; BP 145/76; PULSE 82; PULSE 90
[2024-08-24] MEDS: TYLENOL PO ×2 (00:09→05:39)
[2024-08-24] MEDS: ANCEF 10 IV ×3 (05:40→22:33)
[2024-08-24] MEDS: MORPHINE SULFATE 2 MG IV ×2 (05:49→11:58)
[2024-08-24 07:34] LABS: Hematocrit 27.9 % (39.0-52.0); Hemoglobin 9.6 g/dL (13.0-18.0); Mean Corp Hgb Conc. 34.4 g/dL (33.0-37.0); Mean Corpuscular Hgb 31.4 pg (27.0-31.0); Mean Corpuscular Volume 91.2 fL (80.0-94.0); Mean Platelet Volume 8.5 fL (7.4-10.4); Platelet Count 251 10^3/uL (130-400); Red Blood Cell Count 3.06 10^6/uL (4.70-6.10); Red Cell Dist. Width 12.6 % (11.5-14.5); White Blood Cell Count 7.6 10^3/uL (4.8-10.8)
[2024-08-24 07:45] VITALS: BP 144/89; BP 157/83; PULSE 70; PULSE 94
[2024-08-24 08:00] LABS: Blood Urea Nitrogen 21 mg/dl (9-20); Calcium 8.7 mg/dl (8.4-10.2); Carbon Dioxide 29 mmol/L (22-30); Chloride 103 mmol/L (98-107); Estimated Creatinine Clearance 62 ml/min; Glucose 100 mg/dl (70-99); Potassium 3.9 mmol/L (3.5-5.1); Sodium 143 mmol/L (135-145); eGFR > 60.00
[2024-08-24] MEDS: LOTRIMIN 1% CREAM 1 APPLIC TOPICAL (08:14)
[2024-08-24] MEDS: FLOMAX 0.4 MG PO (08:14)
[2024-08-24] MEDS: PROSCAR 5 MG PO (08:15)
[2024-08-24] MEDS: TYLENOL 650 MG PO ×4 (08:15→20:51)
[2024-08-24] MEDS: ZESTRIL 20 MG PO (08:15)
[2024-08-24] MEDS: NEURONTIN 100 MG PO ×2 (08:15→20:51)
--- NOTE | 2024-08-24 09:49 | W.PN.HOSP.TC ---
Addendum entered and electronically signed by Keke Frey MD 08/24/24 13:47:
I saw and evaluated the patient independently. I reviewed the resident�s note and agree with findings and plan as documented by Dr. Szymanski.
GENERAL: well developed, well nourished, male in no apparent distress
HEENT: NC/AT
HEART: regular rate and rhythm, +S1, +S2
LUNGS : clear to auscultation bilaterally
ABDOM: soft, nontender, nondistended, + bowel sounds
EXT: no cyanosis, clubbing, or edema--left foot with improving redness but coalescing to dorsum of foot
NEUROLOGIC: grossly intact--back pain resolved
LLE Cellulitis with Sepsis (POA)--apparently left leg red all the way up to groin (ink markings for outline present)--much improved--cont ancef--appears to be localizing to foot--apprec podiatry input s/p I&D of foot at bedside--no further I&D's
planned as MRI of foot without abscess--IV ABX today--apprec ID input as well--agree Tinea pedis with skin breakdown likely cause--cont topical clotrimazole
sciatic--seeing Dr. Freeman --will give two dose of IV decadron-- MRI L/S spine with chronic degenerative changes--pt relays decreased sensation in groin since GBS in 1970.....f/u with outpt ortho--PT/OT
Essential Hypertension - Stable. Continue outpatient regimen and adjust as needed.
BPH - Stable. Continue outpatient medications.
Normocytic Anemia--likely of chronic disease--iron studies show low iron BUT no ferritin ordered - No recent baseline - last labs on file were several years ago - No reported bleeding / gross blood loss.
DVT Prophylaxis: Lovenox
Code Status: Full
seeing PT/OT--d/c planning--pt refuses SNF
Original Note:
Today's Communication/Plan
-
MRI foot pending
Assessment / Plan
Assessment / Plan
84yo M with PMH sciatic pain (sees Dr. Freeman), essential hypertension, BPH who presented to ED 08/19/24 for worsening of LLE pain, swelling, redness. Prior to admission, he initially presented to PCP who prescribed oral keflex and doxycycline and
advised patient that if symptoms progress further to be evaluated at ED. Symptoms worsened over 24 hours.
LLE cellulitis with sepsis present on admission
Fever, leukocytosis- resolved
Tinea pedis
- Prior documentation indicates LLE redness extended up to groin on admission
- Started on ancef on admission --> continue IV ancef
- Pain and redness significantly improved throughout leg however appears to be localizing to L dorsum of foot
- ID consulted, appreciate recs. Continue cefazolin inpatient. Per ID plan for outpatient PO cefazolin 500mg QID x9-10 days. Continue topical clotrimazole cream per ID.
- Podiatry consulted, appreciate recs. S/p bedside debridement of lesion on dorsum of foot 08/23/24. No sign of osteomyelitis on foot xray. MRI of foot pending.
Sciatic pain
- S/p IV decadron x1 --> following day pain worsened and decadron restarted
- MRI lumbar/spine shows multilevel degenerative disc disease, multifocal spinal canal and neuroforaminal narrowing. Prominent edema of L lower paraspinal soft tissue/musculature- may represent muscular injury/strain.
- Continue daily IV decadron while inpatient, anticipate PO steroid taper at discharge. Continue gabapentin 100mg BID. Pain better controlled on this regimen.
Essential hypertension- Continue home lisinopril 20mg qd
BPH- Continue home alfuzosin, dutasteride (tamsulosin/flomax and finasteride while inpatient)
Normocytic anemia- likely anemia of chronic disease, iron studies show low Fe but no ferritin ordered. No signs/symptoms of bleeding/bruising/blood loss.
Code status: full
VTE ppx: lovenox
Diet: regular
Dispo planning: anticipate SNF, PT following
Anticipated Discharge: 24 - 48 hours
Subjective/Interval History
-
Date of Service: August 24, 2024
No acute events overnight. His sciatic pain was better controlled last night and feels tolerable this morning though it is still present. Denies lightheadedness, dizziness, chest pain, shortness of breath, nausea, vomiting, diarrhea, abdominal pain.
Last BM was a week ago. OOB with PT, sitting in chair this AM.
Objective Data
-
Labs:
Laboratory Results
08/24/24
07:13
WBC 7.6
Hgb 9.6 L
Hct 27.9 L
Plt Count 251
Sodium 143
Potassium 3.9
Chloride 103
Carbon Dioxide 29
BUN 21 H
Creatinine 1.0
Glucose 100 H
Calcium 8.7
Vital Signs:
Vital Signs
Temp Pulse Resp BP Pulse Ox
97.9 F 70 18 157/83 95
08/24/24 07:45 08/24/24 07:45 08/24/24 07:45 08/24/24 07:45 08/24/24 07:45
I&O
08/23/24 08/24/24 08/25/24
06:59 06:59 06:59
Intake Total 720 / 720 1080 / 1080
Output Total 1150 / 1150 1250 / 1250
Balance -430 / -430 -170 / -170
Review of Systems
-
History Source: Patient
All other systems: Reviewed and negative
Physical Exam
-
General: Well Developed, Well Nourished, No Apparent Distress, Comfortable, Conversant and Other (sitting comfortably in chair this AM enjoying breakfast)
HEENT: Normocephalic and Atraumatic
Respiratory: Clear to Auscultation and Non Labored Respirations
Cardiac: Regular Rhythm and S1/S2
GI: Soft, Nontender, Nondistended and Normal Bowel Sounds
Musculoskeletal: Other (left foot wrapped with gauze, dressing is clean dry intact)
Skin: Warm and Dry
Neuro: Awake, Alert and Oriented
Psych: Calm and Intact Judgement/Insight
Data Reviewed
-
Diagnostic Radiology: Report Reviewed by me
Labs: Labs Reviewed by me
[2024-08-24] MEDS: DECADRON 10 MG IV (10:00)
[2024-08-24] MEDS: MIRALAX 17 GRAMS PO (10:01)
--- NOTE | 2024-08-24 11:24 | WOUNDNOTE ---
WON RN note: Patient admitted with Cellulitis of L leg.
See H&P for complete history.
PMH: Emery-barre syndrome 1971, knee replacement, prostatic hypertrophy and Sciatica.
Wound Location and type/assessment: Patient admitted with: L dorsal foot dry eschar wound, patient does not recall how he got it. Denies being bit by insect or banging foot on something. L foot with resolving cellulitis and edema. Dr. Novak on
consult, reviewed notes. MRI done this morning results pending. Heels are intact. Patient able to stand with walker, has stage 2 PI open blister and smaller intact blister on L buttock. Patient confirmed he has been sitting allot lately due to lower
back pain. Currently using an air chair cushion in recliner chair with legs elevated.
Appetite: Good.
Pressure redistribution devices in place: Accumax, turns self. Able to stand unassisted with walker. Air cushion.
Plan: Local wound care dressing applied, foam to heels to protect. L buttock silicone foam changed. Instructed patient to take air cushion home upon discharge and do frequent shifts in position when sitting.
Will confirm orders with hospitalist, follow peripherally with Podiatry and assist as needed. Updated nurse Lori.
Updated care plan and will follow as needed.
Note to case management of equipment requested for discharge: TBD.
Recommend follow up with [facility] upon discharge.
[2024-08-24 11:50] VITALS: BP 112/81; PULSE 67; O2SAT 99
--- NOTE | 2024-08-24 13:12 | W.PN.ID1 ---
Date of Service
Date of Service: August 24, 2024
Today's Communication
Continue cefazolin then outpt cephalexin.
Assessment / Plan
# Left foot/leg cellulitis
# Fever and leukocytosis resolved
- Suspect streptococcal cellulitis
- Significant improvement of cellulitis. Erythema receded from groin and localized to foot which is also improving.
- Podiatry drained the blister.
- MRI foot without abscess/osteo
- Continue cefazolin (d5).
- At time of discharge, he can resume home cefazolin 500mg po qid x 9-10d.
- Tinea pedis can serve as portal for bacterial entry. Continue topical clotrimazole cream.
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
HTN
left Sciatica
BPH
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
Colon Ca s/p left hemicolectomy, chemo
Pyloric stenosis repair
Hernia repair
Chief Complaint
-: Cellulitis
Subjective / Review of Systems
No complaints except for sciatica pain.
Vital Signs / Physical Exam
Vital Signs
Vital Signs
Temp Pulse Resp BP Pulse Ox
97.9 F 70 18 157/83 95
08/24/24 07:45 08/24/24 07:45 08/24/24 07:45 08/24/24 07:45 08/24/24 07:45
Physical Exam
Constitutional: No Acute Distress and Comfortable
Cardiovascular: Regular Rate and S1/S2
Pulmonary: Clear
Gastrointestinal: Soft, Non Tender and Non Distended
Extremities: Edema (left foot improving) and Erythema (Left foot dorsum ; erythema darker)
Neurological: AO x 3
Objective Data
Lab Data
Lab Results
08/24/24 07:13
08/24/24 07:13
Estimated Creat Clear 62 ml/min 08/24/24 07:13
Lactic Acid 0.9 mmol/L (0.7-2.0) 08/19/24 22:40
Total Bilirubin 0.5 mg/dl (0.2-1.3) 08/19/24 22:40
AST 25 U/L (17-59) 08/19/24 22:40
ALT 17 U/L (0-50) 08/19/24 22:40
Alkaline Phosphatase 87 U/L (38-126) 08/19/24 22:40
Most recent labs reviewed.
Micro Results:
08/20/24 01:34 Blood Culture - Preliminary
Blood/Venous No Growth in 4 days- Final report to follow
08/20/24 01:42 Blood Culture - Preliminary
Blood/Venous No Growth in 4 days- Final report to follow
08/23/24 MRI LE: No abscess. No osteo.
08/23/24 Foot XRAY: Mild soft tissue swelling along the dorsum of the forefoot without radiographic evidence of underlying osteomyelitis.
08/22/24 MRI lumbar spine: There is grade 1 anterolisthesis of L5 on S1 with multilevel degenerative disc disease and facet arthropathy with resultant multifocal spinal canal and neuroforaminal narrowing. Findings are most pronounced at the L5-S1
level where there is mild/moderate canal stenosis, moderate right-sided neuroforaminal narrowing and severe left-sided neuroforaminal narrowing. Individual characterizations as above. There is prominent edema within the left lower paraspinal soft
tissues/musculature extending to the left L5-S1 facet, which may represent muscular injury/strain.
[2024-08-24 15:04] VITALS: BP 132/68
--- NOTE | 2024-08-24 15:32 | CM ---
Patient seen at bedside with physicians. Patient also walking in hallway with therapy. Therapy recommendation today is home with VN; pain control is a continued concern. CM will continue to follow for discharge planning needs.
Plan; home with VN; watch for PT/OT recommendations.
[2024-08-24] MEDS: LOVENOX 40 MG SC (17:06)
[2024-08-24 19:28] VITALS: BP 126/90; BP 148/80; BP 154/80; PULSE 100; PULSE 88; PULSE 90
[2024-08-24] MEDS: LOTRIMIN 1% CREAM 2 APPLIC TOPICAL (20:52)
[2024-08-24] MEDS: AMBIEN 10 MG PO (22:33)
[2024-08-24 23:45] VITALS: BP 147/83
[2024-08-25] MEDS: TYLENOL PO (00:24)
[2024-08-25] MEDS: ANCEF 10 IV (05:13)
[2024-08-25] MEDS: TYLENOL 650 MG PO ×3 (05:13→11:13)
[2024-08-25 07:34] VITALS: BP 117/82
--- NOTE | 2024-08-25 08:15 | W.PN.POD ---
Today's Communication
Today's Communication
No abscess. Surgery not warranted.
Recommend change to PO antibiotics with possible discharge tomorrow with continued improvement.
Assessment / Plan
-
Assessment:
Infected wound of the dorsal left foot with associated cellulitis, left foot.
LLE cellulitis improved with IV antibiotics.
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
Lumbar Radiculopathy, left side
HTN
H/O Colon CA, s/p hemicolectomy, chemo
Plan:
Communicated with hospitalist yesterday regarding MRI findings. No deep space abscess, No sinus tracking.
Dorsal left foot wound is stable though area still painful. No surgical intervention warranted at this point.
ID note appreciated. Suspect streptococcal cellulitis.
Recommend transition to PO antibiotics and consider discharge tomorrow with continued improvement.
Local wound care: Bacitracin and light dry gauze dressing daily adequate.
Will follow on an outpatient basis.
Subjective
Chief Complaint
Cellulitis, foot wound, left.
Subjective
Resting in chair at bedside. Minimal pain in foot reported. Patient is more concerned with his sciatic pain.
Objective
Temp Pulse Resp BP Pulse Ox
98.0 F 82 18 147/83 97
08/24/24 23:45 08/24/24 23:45 08/24/24 23:45 08/24/24 23:45 08/24/24 23:45
Vital Signs and Lab results were reviewed.
Review of Systems
Review of Systems
Review of Systems: No Fever and No Chills
Physical Exam
Physical Exam
Afebrile, VSS. Current WBC 7.6
On admission: Temp 101.1 WBC: 13.5
Exam reveals pedal pulses are palpable, bilaterally. Edema to the dorsal left foot considerably reduced, and erythema/cellulitis is more localized to the dorsolateral forefoot centered over the now dry eschar. The lesion is 1.5cm diameter round,
3cm proximal to the digital interspaces. This is stable, with no discharge, purulence, bleeding noted. There is dry scaling of the interdigital areas, without maceration or open lesions communicating with the cellulitis clinically. No edema or pain
involving the plantar forefoot, left.
08/23/24 XRAYS, left foot: Mild soft tissue swelling along the dorsum of the forefoot without radiographic evidence of underlying osteomyelitis.
08/24/24 MRI, left foot: There is significant motion artifact, which limits resolution of this examination.
There is dorsal moderate subcutaneous edema. There is also edema within the plantar and interosseous musculature. However, there is no evidence of a focal collection to suggest an abscess. There is no marrow signal intensity abnormality to suggest
osteomyelitis. There is no evidence for stress fracture or stress-related reaction.
[2024-08-25] MEDS: FLOMAX 0.4 MG PO (08:39)
[2024-08-25] MEDS: PROSCAR 5 MG PO (08:40)
[2024-08-25] MEDS: NEURONTIN 100 MG PO (08:40)
[2024-08-25] MEDS: ZESTRIL 20 MG PO (08:40)
[2024-08-25] MEDS: MIRALAX 17 GRAMS PO (08:41)
[2024-08-25] MEDS: LOTRIMIN 1% CREAM 1 APPLIC TOPICAL (08:41)
[2024-08-25 08:49] LABS: Blood Urea Nitrogen 25 mg/dl (9-20); Calcium 8.5 mg/dl (8.4-10.2); Carbon Dioxide 27 mmol/L (22-30); Chloride 102 mmol/L (98-107); Estimated Creatinine Clearance 62 ml/min; Glucose 77 mg/dl (70-99); Magnesium 2.1 mg/dl (1.6-2.3); Potassium 3.7 mmol/L (3.5-5.1); Sodium 145 mmol/L (135-145); eGFR > 60.00
[2024-08-25 08:50] LABS: Hematocrit 29.2 % (39.0-52.0); Hemoglobin 10.2 g/dL (13.0-18.0); Mean Corp Hgb Conc. 34.9 g/dL (33.0-37.0); Mean Corpuscular Hgb 31.5 pg (27.0-31.0); Mean Corpuscular Volume 90.1 fL (80.0-94.0); Mean Platelet Volume 8.5 fL (7.4-10.4); Platelet Count 275 10^3/uL (130-400); Red Blood Cell Count 3.24 10^6/uL (4.70-6.10); Red Cell Dist. Width 12.5 % (11.5-14.5); White Blood Cell Count 7.7 10^3/uL (4.8-10.8)
--- NOTE | 2024-08-25 09:16 | W.PN.HOSP.TC ---
Addendum entered and electronically signed by Keke Frey MD 08/25/24 20:03:
stage 2 PI open blister and smaller intact blister on L buttock--also POA--apprec wound care
Addendum entered and electronically signed by Keke Frey MD 08/25/24 20:01:
I saw and evaluated the patient independently. I reviewed the resident�s note and agree with findings and plan as documented by Dr. Szymanski.
GENERAL: well developed, well nourished, male in no apparent distress
HEENT: NC/AT
HEART: regular rate and rhythm, +S1, +S2
LUNGS : clear to auscultation bilaterally
ABDOM: soft, nontender, nondistended, + bowel sounds
EXT: no cyanosis, clubbing, or edema--left foot with improving redness but coalescing to dorsum of foot
NEUROLOGIC: grossly intact--back pain resolved
LLE Cellulitis with Sepsis (POA)--apparently left leg red all the way up to groin (ink markings for outline present)--much improved--cont ancef, transition to oral cephalexin at d/c---apprec podiatry input s/p I&D of foot at bedside--no further
I&D's planned as MRI of foot without abscess--IV ABX today--apprec ID input as well--agree Tinea pedis with skin breakdown likely cause--cont topical clotrimazole
sciatic--seeing Dr. Freeman --will give two dose of IV decadron-- MRI L/S spine with chronic degenerative changes--pt relays decreased sensation in groin since GBS in 1970.....f/u with outpt ortho--PT/OT--steroid taper at d/c--cont gabapentin
Essential Hypertension - Stable. Continue outpatient regimen and adjust as needed.
BPH - Stable. Continue outpatient medications.
Normocytic Anemia--likely of chronic disease--iron studies show low iron BUT no ferritin ordered - No recent baseline - last labs on file were several years ago - No reported bleeding / gross blood loss.
DVT Prophylaxis: Lovenox
Code Status: Full
seeing PT/OT--d/c planning--pt refuses SNF--d/c home with VN
Original Note:
Today's Communication/Plan
-
discharge home today
Assessment / Plan
Assessment / Plan
84yo M with PMH sciatic pain (sees Dr. Freeman), essential hypertension, BPH who presented to ED 08/19/24 for worsening of LLE pain, swelling, redness. Prior to admission, he initially presented to PCP who prescribed oral keflex and doxycycline and
advised patient that if symptoms progress further to be evaluated at ED. Symptoms worsened over 24 hours.
LLE cellulitis with sepsis present on admission
Fever, leukocytosis- resolved
Tinea pedis
- Prior documentation indicates LLE redness extended up to groin on admission
- Started on ancef on admission, continued throughout admission
- Pain and redness significantly improved throughout leg however appears to be localizing to L dorsum of foot
- ID consulted, appreciate recs. Continue cefazolin inpatient. Per ID plan for outpatient PO cephalexin 500mg QID x9-10 days. Continue topical clotrimazole cream per ID.
- Podiatry consulted, appreciate recs. S/p bedside debridement of lesion on dorsum of foot 08/23/24. No sign of osteomyelitis on foot xray. MRI of foot shows no abscess, no indication for I&D.
- Discussed at bedside with podiatry today- redness continues to improve and is reassuring. Will change to oral antibiotics and observe for clinical improvement.
- Stable for discharge home today. Patient and VN to monitor for signs of worsening infection. Patient to have short interval follow up with podiatry, early next week.
Sciatic pain
- S/p IV decadron x1 --> following day pain worsened and daily IV decadron restarted
- MRI lumbar/spine shows multilevel degenerative disc disease, multifocal spinal canal and neuroforaminal narrowing. Prominent edema of L lower paraspinal soft tissue/musculature- may represent muscular injury/strain.
- Continue steroids at discharge, prednisone taper provided. Continue gabapentin 100mg BID. Pain better controlled on this regimen.
- Ambulating much better with walker now that pain is not so limiting. Discharge home with VN and PT/OT.
Essential hypertension- Continue home lisinopril 20mg qd
BPH- Continue home alfuzosin, dutasteride (tamsulosin/flomax and finasteride while inpatient)
Normocytic anemia- likely anemia of chronic disease, iron studies show low Fe but no ferritin ordered. No signs/symptoms of bleeding/bruising/blood loss.
Stage 2 pressure injury
- open blister and smaller intact blister L buttocks
- Continue wound care
Code status: full
VTE ppx: lovenox
Diet: regular
Dispo planning: discharge today, home with VN
Anticipated Discharge: Today
Subjective/Interval History
-
Date of Service: August 25, 2024
No acute events overnight. Sciatic pain is much improved from few days prior though still present- rates it a steady 5 out of 10 (compared to 'shooting up to a 20 out of 10 before'). Denies lightheadedness, dizziness, chest pain, shortness of
breath, nausea, vomiting, diarrhea. Tolerating PO diet. Ambulating with walker.
Objective Data
-
Labs:
Laboratory Results
08/25/24
07:48
WBC 7.7
Hgb 10.2 L
Hct 29.2 L
Plt Count 275
Sodium 145
Potassium 3.7
Chloride 102
Carbon Dioxide 27
BUN 25 H
Creatinine 1.0
Glucose 77
Calcium 8.5
Vital Signs:
Vital Signs
Temp Pulse Resp BP Pulse Ox
98.2 F 69 20 117/82 99
08/25/24 07:34 08/25/24 07:34 08/25/24 07:34 08/25/24 07:34 08/25/24 07:34
I&O
08/24/24 08/25/24 08/26/24
06:59 06:59 06:59
Intake Total 1080 / 1080 1020 / 1020
Output Total 1250 / 1250 1100 / 1100
Balance -170 / -170 -80 / -80
Review of Systems
-
History Source: Patient
All other systems: Reviewed and negative
Physical Exam
-
General: Well Developed, Well Nourished, No Apparent Distress, Comfortable, Conversant and Other (sitting comfortably in chair this AM)
HEENT: Normocephalic and Atraumatic
Respiratory: Clear to Auscultation and Non Labored Respirations
Cardiac: Regular Rhythm and S1/S2
GI: Soft, Nontender, Nondistended and Normal Bowel Sounds
Musculoskeletal: Other (left foot wrapped with gauze (recently replaced by podiatry), dressing is clean dry intact)
Skin: Warm and Dry
Neuro: Awake, Alert and Oriented
Psych: Calm and Intact Judgement/Insight
Data Reviewed
-
Diagnostic Radiology: Report Reviewed by me
MRI: Report Reviewed by me, Discussed with Physician and Discussed with Patient
Labs: Labs Reviewed by me
[2024-08-25] MEDS: DECADRON IV (09:59)
[2024-08-25] MEDS: DELTASONE 40 MG PO (09:59)
--- NOTE | 2024-08-25 10:19 | PN.CDI ---
CDI
- -
CDI:
Physician Documentation Request
Admit Date: 08/20/24 08:00
Dear Doctor Nessa,
Patient admitted with sepsis.
08/24 N note, 'Patient admitted with...stage 2 PI open blister and smaller intact blister on L buttock.'
Physician documentation of the type and location of wounds is required for compliant documentation. Based on the above clinical findings and your assessment, please provide the following in your progress note:
Type (etiology) of ulcer/wound:
- Pressure (decubitus) ulcer
- Other
- Unable to determine
For a pressure ulcer, please also include the stage* of the ulcer:
- Stage 1 - Skin intact, non-blanchable redness
- Stage 2 - Partial thickness loss of dermis, includes intact or open blister
- Stage 3 - Full thickness tissue not including bone, tendon or muscle
- Stage 4 - Full thickness tissue loss, including exposed bone, tendon or muscle
- Unstageable - Full thickness loss in which the base of the ulcer is covered by slough (yellow, cole, galindo, green or brown) and/or eschar (cole, brown or black) in the wound bed.
- Unable to determine
Use of terms such as suspected, likely, concern for, or probable (associated with a specific diagnosis that is being evaluated, monitored, or treated as if it exists) are acceptable and can be coded in the inpatient setting, when documented at the
time of discharge.
Thank you,
Carmen LENNON,RN,CCDS
CDI Specialist
Available via [place] text
Please use your independent medical judgment in providing your response.
*Source: National Pressure Ulcer Advisory Panel (NPUAP)
[2024-08-25] MEDS: KEFLEX 500 MG PO (11:13)
[2024-08-25] MEDS: KEFLEX PO (11:17)
--- NOTE | 2024-08-25 11:48 | VNURNOTE ---
Home Health Liaison met with patient to discuss [facility] nurse/therapy, visits, schedule and homebound status. Patient is agreeable and understands that visits at home will be 2-3 x per week to assess and teach medical management.
[facility] brochure provided with contact information. Patient is aware that [facility] will contact them for start of care in 1-2 days after discharge from .
[facility] referral completed in [facility].
[2024-08-25 12:57] VITALS: BP 147/74
--- NOTE | 2024-08-25 13:02 | WOUNDNOTE ---
[facility] RN note: Updated discharge instructions with Dr. Bonilla's recommended local L dorsal foot wound care (bacitracin and light gauze dressing daily). t/c entry level accounting clerkclerk Ashby who will have his nurse print out updated instructions. Updated [facility] nurse
liahesham June and Dr. Shantell Szymanski via [employer] text.
--- NOTE | 2024-08-25 13:09 | WOUNDNOTE ---
[facility] RN Note: t/c Spoke with patient and instructed local care of L dorsal foot with Bacitracin ointment and dry gauze cover daily. Patient will use the adaptic until he can have someone pickle solution maker Bacitracin ointment from a local pharmacy. Patient also
instructed to take home the air chair cushion.
--- NOTE | 2024-08-25 14:25 | CM ---
Patient seen at bedside with physicians. Patient called to and plan is for discharge home with [facility] to follow as needed. IMM completed and signed form placed on chart. CM will continue to follow for discharge planning needs.
Plan; home with [facility] pending acceptance
--- NOTE | 2024-08-25 15:41 | W.DCSUMMARY ---
Addendum entered and electronically signed by Keke Frey MD 08/25/24 20:04:
Read, reviewed, and agree. See same day progress note for additional details. Time spent coordinating care, DC planning, review of DC plan of care with resident, transition of care, review of records in EMR, med rec, consults, notes, d/w
consultants, nursing, family, and CM = 32 minutes
Original Note:
Discharge Summary
Discharge Data
Date of Admission: 08/20/24
Date of Discharge: 08/25/24
-
Pending Results: No
Hospital Course
Discharging Physician : Dr. Szymanski, Dr. Frey
Disposition : Home with VN
Primary care physician : Raj Brownlee
Principal Discharge diagnosis : Left lower extremity cellulitis, sepsis on admission, tinea pedis, sciatic pain
Chronic Discharge diagnosis : Essential hypertension, sciatica, benign prostatic hyperplasia, normocytic anemia
Hospital Course : Presented to ED 08/19/24 for worsening of left lower extremity pain, swelling, redness. Prior to admission, he initially presented to PCP who prescribed oral antibiotics and advised patient to present to ED if symptoms worsened
which they did. He was started on IV antibiotics. Infectious Diseases and Podiatry were consulted. He underwent bedside debridement of superficial blister with podiatry on 08/23/24. Xray and MRI showed no osteomyelitis or abscess. He was started on
topical clotrimazole cream for tinea pedis. Wound care was consulted for pressure injuries on buttocks. His sciatic pain was significant during hospitalization and he received MRI and well as IV decadron and gabapentin. His pain improved and he was
switched to oral steroid taper. On day of discharge he was stable. He was discharged home with VN with oral steroid taper and oral antibiotics. He will follow up with podiatry in less than 1 week.
Important imaging findings :
Lumbar spine 08/22/24
IMPRESSION:
There is grade 1 anterolisthesis of L5 on S1 with multilevel degenerative disc disease and facet arthropathy with resultant multifocal spinal canal and neuroforaminal narrowing. Findings are most pronounced at the L5-S1 level where there is
mild/moderate canal stenosis, moderate right-sided neuroforaminal narrowing and severe left-sided neuroforaminal narrowing. Individual characterizations as above.
There is prominent edema within the left lower paraspinal soft tissues/musculature extending to the left L5-S1 facet, which may represent muscular injury/strain.
Foot xray 08/23/24
IMPRESSION:
Mild soft tissue swelling along the dorsum of the forefoot without radiographic evidence of underlying osteomyelitis.
Foot MRI 08/24/24
IMPRESSION: No evidence for access.
No evidence for osteomyelitis.
Examination is somewhat limited by motion artifact.
Procedure findings : N/A
Discharge Plan
-
Patient Disposition: Home with Home Care
Discharge Diagnosis/Procedures: Left lower extremity cellulitis, sepsis on admission, tinea pedis, sciatic pain, essential hypertension
Condition: Good
Diet: Regular
Activity: As tolerated and With Walker
Driving Restrictions: No driving
Bathing Restrictions: OK to Shower
Other Services: VN, PT and OT
Activity Restrictions/Additional Instructions:
Wound Care Instructions
L dorsal foot: Bacitracin ointment and light dry gauze dressing daily.
L buttock: clean with soap and water, silicone foam change q 3 days and prn drainage.
Air chair cushion when sitting*CAN TAKE HOME UPON DISCHARGE.
Leg elevation when sitting
Follow up with [facility] upon discharge.
Instructions: Cellulitis (skin infection) in adults - Discharge instructions
Referrals:
Aldo Novak DPM [Specified Professional Personl] - in three to four days (Call the podiatry office to schedule follow up appointment for early next week)
Raj Brownlee MD [Family Provider] - in less than 1 week (Call your Primary Care Provider to schedule an appointment within 1 week of hospital discharge)
Additional Discharge Medication Instructions: New medications:
- Cephalexin 500mg: Take one capsule 4 times per day for 10 days.
- Clotrimazole cream: Use 2 times per day or as directed by your pillowcase maker.
- Bacitracin ointment: Use as directed by wound care.
- Gabapentin 100mg: Take one capsule 2 time per day. As your Primary Care Provider for refills.
- Prednisone 10mg tab: Take 4 tabs (40mg) once per day for 3 days. Then take 3 tabs (30mg) once per day for 3 days. Then take 2 tabs (20mg) once per day for 3 days. Then take 1 tab (10mg) once per day for 3 days. Then stop.
Prescriptions:
New
cephalexin 500 mg Capsule
500 mg PO QID 10 Days Qty: 40 0RF
clotrimazole [Athlete's Foot (clotrimazole)] 1 % Cream
1 applic topical BID Qty: 45 0RF
gabapentin 100 mg Capsule
100 mg PO BID 30 Days Qty: 60 0RF
prednisone 10 mg Tablet
See Taper PO DAILY Qty: 30 0RF
Taper: Prednisone DC Starting at 40 mg daily
40 mg Daily for 3 Days and 0 Hour
30 mg Daily for 3 Days and 0 Hour
20 mg Daily for 3 Days and 0 Hour
10 mg Daily for 3 Days and 0 Hour
Rx Instructions:
40mg daily x3 days; 30mg x3 days; 20mg x3 days; 10mg x3 days
bacitracin 500 unit/gram ointment
1 applic topical DAILY Qty: 28 0RF
Rx Instructions:
Use bacitracin ointment with dressing changes
Continued
polyethylene glycol 3350 [Miralax] 17 gram Powder In Packet
1 g PO Q48H
zolpidem 10 mg Tablet
10 mg PO HS
fluticasone propionate 50 mcg/actuation [place],Suspension
1 spray INTRANASAL DAILY
alfuzosin 10 mg Tablet Extended Release 24 Hr
10 mg PO DAILY
dutasteride
0.5 mg PO DAILY
lisinopril
20 mg PO DAILY
Discharge Orders:
Discharge Patient (As Directed); Ordered 08/25/24
Ordered By: Shantell Szymanski
Discharge Date and Time
Discharge Date/Time: 08/25/24 15:25
Print Language: ALGERIAN
== END 2024-08-25 15:25 | disposition home health service (06) | DRG 872 ==
LOC: 4 EAST ACU 08:00
PROVIDERS: Emergency Medicine; Student in an Organized Health Care Education/Training Program; ADMITTING PHYSICIAN Hospitalist; ATTENDING PHYSICIAN Internal Medicine; CONSULT PHYSICIAN Internal Medicine Infectious Disease; CONSULT PHYSICIAN Podiatrist Foot & Ankle Surgery; EMERGENCY PHYSICIAN Emergency Medicine; FAMILY PHYSICIAN Internal Medicine
DX: A41.9 Sepsis, unspecified organism (principal); L03.116 Cellulitis of left lower limb; I10 Essential (primary) hypertension; K21.9 Gastro-esophageal reflux disease without esophagitis; N40.0 Benign prostatic hyperplasia without lower urinary tract symptoms; D63.8 Anemia in other chronic diseases classified elsewhere; M51.17 Intervertebral disc disorders with radiculopathy, lumbosacral region; L89.322 Pressure ulcer of left buttock, stage 2; B35.3 Tinea pedis; Z79.899 Other long term (current) drug therapy; Z88.8 Allergy status to other drugs, medicaments and biological substances; Z90.49 Acquired absence of other specified parts of digestive tract; Z87.891 Personal history of nicotine dependence; Z85.038 Personal history of other malignant neoplasm of large intestine
CPT/HCPCS: 72158; 73620; 73718; 80048; 80053; 83540; 83550; 83605; 83735; 84550; 85025; 85027; 87040; 96365; 96366; 96367; 97116; 97163; 97530; 99284; A9575

== ENCOUNTER 2025-06-17 21:09 | Observation (INO) | payer MEDICARE, SELFPAY ==
[2025-06-17 15:15] VITALS: BP 158/87
[2025-06-17 15:50] LABS: Glucose - Point of Care 118 mg/dl (70-99)
[2025-06-17 16:09] LABS: Hematocrit 35.4 % (39.0-52.0); Hemoglobin 12.2 g/dL (13.0-18.0); Mean Corp Hgb Conc. 34.5 g/dL (33.0-37.0); Mean Corpuscular Volume 89.6 fL (80.0-94.0); Platelet Count 206 10^3/uL (130-400); Red Cell Dist. Width 13.2 % (11.5-14.5)
[2025-06-17 16:13] LABS: INR 0.95; PT 13.0 Sec (11.4-14.6)
[2025-06-17 16:14] LABS: APTT 28.9 Sec (23.4-35.0)
[2025-06-17 16:23] LABS: Absolute Neutrophils -Man Diff 2.1 10^3/uL (1.4-6.5); Normal RBC Morphology Yes; Platelets Checked Yes; Total Cells Counted 100
[2025-06-17 16:30] LABS: ALT (SGPT) 27 U/L (0-50); AST (SGOT) 27 U/L (17-59); Albumin 4.8 g/dl (3.5-5.0); Alkaline Phosphatase 70 U/L (38-126); Blood Urea Nitrogen 18 mg/dl (9-20); Calcium 9.0 mg/dl (8.4-10.2); Carbon Dioxide 24 mmol/L (22-30); Chloride 108 mmol/L (98-107); Glucose 100 mg/dl (70-99); Potassium 4.0 mmol/L (3.5-5.1); Sodium 140 mmol/L (135-145); Total Protein 7.7 g/dl (6.3-8.2); eGFR > 60.00
[2025-06-17 16:39] LABS: Troponin I < 0.012 ng/ml
--- NOTE | 2025-06-17 20:09 | HPS.HSE ---
Family Physician
-
Family Physician: Raj Brownlee MD
Chief Complaint
-
expressive aphagia
History of Present Illness
Patient is a 85-year-old male with past medical history of hypertension, hyperlipidemia, HFpEF, Guillain-Emory (1970), BPH, anxiety and GERD who presented to [facility] ED for evaluation of expressive aphagia. Patient earlier today had a acute onset of
expressive aphagia and was unable to find words appropriately. Symptoms resolved prior to EMS arrival and family denies any other associated symptoms.
Medical History
Past Medical History
Past Medical History: Reports Other
Additional Past Medical History:
hypertension
hyperlipidemia
HFpEF
Guillain-Emory (1970)
BPH
anxiety
GERD
colon cancer (surgery and chemo)
GERD
DDD / Sciatica
Past Surgical History: Reports Other
Additional Past Surgical History:
Left Hemicolectomy
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
Pyloric Stenosis Repair
Hernia Repair
Knee Arthroscopy
Cataracts
Social History
Tobacco: Former Smoker (Quit smoking 60 years ago. Minimal total use.)
Alcohol: None
Drug: None
Family History
Family History: Not pertinent
Allergies / Home Medications
Allergies reflects when Allergies were last updated in [facility].
Home Medications with original date entered in [facility]
Allergy/Medication List:
Allergies
Allergy/AdvReac Type Severity Reaction Status Date / Time
iodine Allergy 'Deadly' Verified 06/17/25 15:19
Home Medications
acetaminophen 500 mg tablet 1,000 mg PO Q6H PRN pain 06/17/25
fiber 1 cap PO TID 06/17/25
ibuprofen 400 mg tablet 400 mg PO Q6H PRN pain 06/17/25
mecobalamin (vitamin B12) 1,000 mcg chewable tablet (B12 Active) 1,000 mcg PO DAILY 06/17/25
melatonin 10 mg tablet 10 mg PO HS PRN insomnia 06/17/25
Review of Systems
-
Constitutional: Reports No Symptoms
EENT: Reports No Symptoms
Respiratory: Reports No Symptoms
Cardiac: Reports No Symptoms
Abdomen/GI: Reports No Symptoms
: Reports No Symptoms
Musculoskeletal: Reports No Symptoms
Skin: Reports No Symptoms
Neurological: Reports Weakness (bilateral lower extremity) and Other (difficulty word finding )
Endocrine: Reports No Symptoms
Hematologic/Lymphatic: Reports No Symptoms
Psych: Reports No Symptoms
Physical Exam
Vital Signs
Vital Signs
Temp Pulse Resp BP Pulse Ox
97.6 F 78 18 158/87 98
06/17/25 15:15 06/17/25 15:15 06/17/25 19:09 06/17/25 15:15 06/17/25 15:15
Physical Exam
General: Well Developed, Well Nourished and No Apparent Distress
HEENT: NormoCephalic, Moist mucous membranes and Atraumatic
Respiratory: Clear; No Rales, Rhonchi or Crackles
Cardiac: S1/S2 and Regular Rhythm; No Murmur, Rub or Gallop
Breast: Deferred by me
GI: Soft, Non Tender, Non Distended and Normal Bowel Sounds; No Organomegaly
Rectal: Deferred by Provider
Genito-urinary: Deferred by me
Musculoskeletal: No Clubbing, No Cyanosis and No Edema
Skin: Warm
Neuro: Awake, AO x 3, No Motor Deficits, Nonfocal/grossly intact, Cranial Nerves Intact and No Sensory Deficits; No Slurred Speech or Facial Droop
Hematologic/Lymphatic: No Lymphadenopathy
Psych: Calm and Intact Judgment/Insight
Laboratory Results
-
06/17/25 15:34
06/17/25 15:34
Laboratory Results
PT 13.0 Sec (11.4-14.6) 06/17/25 15:34
INR 0.95 06/17/25 15:34
APTT 28.9 Sec (23.4-35.0) 06/17/25 15:34
Total Bilirubin 0.5 mg/dl (0.2-1.3) 06/17/25 15:34
AST 27 U/L (17-59) 06/17/25 15:34
ALT 27 U/L (0-50) 06/17/25 15:34
Alkaline Phosphatase 70 U/L (38-126) 06/17/25 15:34
Troponin I < 0.012 ng/ml 06/17/25 15:34
Data Reviewed
-
CT Scan: Report Reviewed by me (Head: No acute intracranial abnormality noted)
Lab Data: Labs Reviewed by me
Impression/Plan
-
IMPRESSION/PLAN:
#expressive aphasia likely 2/2 TIA/CVA
EKG: SINUS RHYTHM WITH SINUS ARRHYTHMIA WITH OCCASIONAL PREMATURE VENTRICULAR
COMPLEXES
Head CT: No acute intracranial abnormality noted
- Admit to telemetry
- Consult Neurology
- MRI/MRA
- neurochecks and NIH
#hypertension
#hyperlipidemia
#HFpEF
#Guillain-Emory (1971)
#BPH
#anxiety
#GERD
#colon cancer (surgery and chemo)
#GERD
Code status: full code
DVT prophylaxis: SCDs
--- NOTE | 2025-06-17 20:11 | ED.CVA ---
History of Present Illness
General
Chief Complaint: CVA/TIA Symptoms
Source: patient
Exam Limitations: none
Time Seen by Provider: 06/17/25 18:29
Nursing documentation reviewed up to this point in time: agreed with
Onset of Stroke Symptoms
Onset of symptoms known: Yes
Date of onset of symptoms: 06/17/25
Time of onset of symptoms: 14:00
History of Present Illness
History of Present Illness:
85-year-old male presenting to the emergency department after an episode of expressive aphasia starting at 2 PM today lasting roughly 20 minutes resolving prior to arrival. Does not chest pain shortness of breath palpitation denies any numbness or
weakness. Has had progressive weakness of his bilateral lower extremities over the past few months. Specific diagnosis is to explain this has had evaluations by his primary care doctor.
Past History
Past History
ED Past Medical History: Other (Guillain-Cobos�)
ED Past Surgical History: Bowel resection, Orthopedic (Knee replacement) and Other (Eye surgery)
Social History
Tobacco: Non-smoker
Alcohol: None
Drug: None
Personal:
Living: with family
Employment: Retired
Review of Systems
Review of Systems
Allergies reviewed?: Yes
All Other Systems: ROS reviewed and negative except as documented in HPI and ROS
Phy Exam
Physical Exam
Physical Exam:
GENERAL: Alert , in no apparent distress
EYE: pupils equal and reactive
NECK: Supple, no significant adenopathy.
ENT: o/p clr, mmm.
CARDIAC: Regular rate and rhythm .
LUNGS: Clear breath sounds bilaterally, no acute respiratory distress, no wheezes/rales/rhonchi
ABDOMEN: Soft, without focal tenderness, no r/g, no cvat
NEUROLOGICAL: Alert and oriented, no focal neuro deficits 5-5 upper and lower extremity strength normal sensation with palpating bilaterally normal finger-nose and heel castañeda no pronator drift
SKIN: Warm and dry, skin intact.
MUSCULOSKELETAL: No edema, well perfused.
PSYCH: Normal and appropriate interaction.
Course
Orders/Labs/Results
Orders:
Orders
06/17/25 15:21
Electrocardiogram (*1) Urgent
Reason for Study: Other
Other Reason for Exam: Possible Stroke
Bedside Glucose- Treatment ONCE
Cardiac Monitoring- Treatment ONCE
Vital Signs As Directed
Frequency: Other
Weight As Directed
Frequency: Once
Comment: ZERO STRETCHER SCALE FOR ACCURATE WEIGHT
06/17/25 15:22
CT Head W/o Iv Contrast Urgent
Comment:
Reason For Exam: aphasia
EKG- Treatment ONCE
06/17/25 15:34
Complete Blood Count/With Diff Urgent
Comprehensive Metabolic Panel Urgent
Manual Differential Urgent
PTT Urgent
Prothrombin Time Urgent
Troponin I Urgent
Abnormal Lab Results
06/17/25 06/17/25
15:34 15:49
WBC 4.5 L 10^3/uL
(4.8-10.8)
RBC 3.95 L 10^6/uL
(4.70-6.10)
Hgb 12.2 L g/dL
(13.0-18.0)
Hct 35.4 L %
(39.0-52.0)
Monocytes (Manual) 12 H %
(2-9)
Chloride 108 H mmol/L
(98-107)
Glucose 100 H mg/dl
(70-99)
POC Glucose 118 H mg/dl
(70-99)
06/17/25 15:34
06/17/25 15:34
Vital Signs
Initial and Last Documented VS:
Initial Vital Signs
Temp Pulse Resp BP Pulse Ox
97.6 F 78 18 158/87 98
06/17/25 15:15 06/17/25 15:15 06/17/25 15:15 06/17/25 15:15 06/17/25 15:15
Last Documented Vital Signs
Temp Pulse Resp BP Pulse Ox
97.6 F 78 18 158/87 98
06/17/25 15:15 06/17/25 15:15 06/17/25 19:09 06/17/25 15:15 06/17/25 15:15
MDM/Problems Addressed
MDM/Problems Addressed:
85-year-old male presenting to the emergency department today with concerns of expressive aphasia lasting roughly 20 minutes a few hours prior to arrival to the emergency department. No ongoing symptoms at this point. Symptoms fully resolved. No
history of stroke. Does not take any antiplatelets at this point. Normal neurologic evaluation here. Patient does have a severe iodine allergy thus recommendation for MRI/MRA. Plan to admit for further testing and monitoring.
*Pulse Oximetry
SaO2: 98
Oxygen Mode of Delivery: Room air
Patient hypoxic: no (98)
*Critical Care Note
Total Time (30-74mins, 75-104mins- exclusive of procedures): Not Applicable
ED Attending Note
-
Portions of this chart may have been created with voice recognition software.� Occasional wrong word or��sound alike� substitutions may have occurred due to the inherent limitations of voice recognition software.
Discharge Plan
Departure
Patient Disposition: Admit
Date of Disposition: 06/17/25
Time of Disposition: 20:13
Admit to: Telemetry
Admit to doctor: Kimberly
Presentation/result/management discussed w/ accepting MD/DO: Hospitalist
Patient with high blood pressure during this ER visit?: No
Condition: Good
Covid-19: Not Applicable
Discharge Problem:
Expressive aphasia
Prescriptions:
No Action
polyethylene glycol 3350 [Miralax] 17 gram Powder In Packet
1 g PO Q48H
zolpidem 10 mg Tablet
10 mg PO HS
fluticasone propionate 50 mcg/actuation [place],Suspension
1 spray INTRANASAL DAILY
alfuzosin 10 mg Tablet Extended Release 24 Hr
10 mg PO DAILY
dutasteride
0.5 mg PO DAILY
lisinopril
20 mg PO DAILY
cephalexin 500 mg Capsule
500 mg PO QID 10 Days Qty: 40 0RF
clotrimazole [Athlete's Foot (clotrimazole)] 1 % Cream
1 applic topical BID Qty: 45 0RF
gabapentin 100 mg Capsule
100 mg PO BID 30 Days Qty: 60 0RF
prednisone 10 mg Tablet
See Taper PO DAILY Qty: 30 0RF
Taper: Prednisone DC Starting at 40 mg daily
40 mg Daily for 3 Days and 0 Hour
30 mg Daily for 3 Days and 0 Hour
20 mg Daily for 3 Days and 0 Hour
10 mg Daily for 3 Days and 0 Hour
Rx Instructions:
40mg daily x3 days; 30mg x3 days; 20mg x3 days; 10mg x3 days
bacitracin 500 unit/gram ointment
1 applic topical DAILY Qty: 28 0RF
Rx Instructions:
Use bacitracin ointment with dressing changes
Referrals:
Raj Brownlee MD [Family Provider, Internal Medicine]
Interventions
Interventions:
*Risk Screen - Suicide Last Done: 06/17/25 15:15
*General Assessment Last Done: 06/17/25 15:15
*ED COVID-19 Vaccine History Last Done: 06/17/25 15:15
Discharge Date and Time
Print Language: OMANI
--- NOTE | 2025-06-17 20:20 | W.PN.UPDATE ---
Update Note
Progress Note Update
This note serves as an addendum to the H&P by manager global communications CHAPIS�
Nena Hester
�
HPI
85M Former smoker HX HTN seen at ER
- evaluation for abrupt onset abn speech
- episode of expressive aphasia at 2pm - lasted about 30 minutes then fully resolved.
- reports as unable to speak or get any words out.
- Denies any weakness/paresthesia.
- No facial droop according to his .
- Symptoms resolved prior to EMS eval.
PMHX
Hypertension
Guillain-Durbin (1970)
BPH
Colon Cancer (Surgery and Chemo)
GERD
DDD / Sciatica
PSHX
Left Hemicolectomy
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
Pyloric Stenosis Repair
Hernia Repair
Knee Arthroscopy
Cataracts
Relevant VS
Temp Pulse Resp BP Pulse Ox
97.6 F 78 18 158/87 98
06/17/25 15:15 06/17/25 15:15 06/17/25 19:09 06/17/25 15:15 06/17/25 20:13
PE
Gen: no acute distress
HEENT: moist OM
Neck: supple
Lungs: Clear; No Wheezes, Rales or Rhonchi
Cor: S1 S2 RRR no mm
Abdomen:�benign exam
TEACHER ASST: AAO3 NFND , symmetric strength and movements
MS: no edema
Psych: appropriate
Relevant Data
06/17/25 06/17/25
15:34 15:49
WBC 4.5 L
RBC 3.95 L
Hgb 12.2 L
Hct 35.4 L
Monocytes (Manual) 12 H
Chloride 108 H
Glucose 100 H
POC Glucose 118 H
Last hospitalist admission: Date of Admission: 08/20/24 - Date of Discharge: 08/25/24
DC Dxs: Left lower extremity cellulitis, sepsis on admission, tinea pedis, sciatic pain, essential hypertension
ASSESSMENT & PLAN
Pending Rx reconciliation
Evaluation for TIA/CVA for episode of expressive aphasia at 2pm, lasted about 30 minutes then fully resolved.
HX sever anaphylaxis reaction to Iodine contrast
- Unable to speak or get any words out.
- Denies any weakness/paresthesia.
- No facial droop according to his .
- Symptoms resolved prior to EMS eval.
- Neuro exam normal here.
- NEG HCT
- unremarkable labs and EKG
- MRA H & N
- for Brain MRI
- Neuro consult
Essential Hypertension
- Stable
- c/w [facility] outpatient regimen and adjust as needed.
BPH
- Stable
- c/w [facility] outpatient medications.
DVT Prophylaxis: SCD
Full Code
OBS TLM
[2025-06-17 20:21] VITALS: BP 141/77
[2025-06-17 20:23] VITALS: BP 141/77; BMI 29.2
[2025-06-17] MEDS: TYLENOL 650 MG PO (22:40)
[2025-06-17 23:11] VITALS: BP 158/93; BMI 28.6
[2025-06-18] VITALS (8 sets, daily range): BP systolic 104–180; BP diastolic 61–85; PULSE 74; O2SAT 98
[2025-06-18 08:04] LABS: HDL Cholesterol 32 mg/dl; LDL Cholesterol, Calculated 138 mg/dl; Very Low Density Lipoprotein 35 mg/dl (0-30)
--- NOTE | 2025-06-18 08:20 | W.PN.HOSP.TC ---
Today's Communication/Plan
-
Neurology consulted for TIA/stroke workup. Pending recommendations for antiplatelet therapy/anticoagulation, hypertension, hyperlipidemia.
Assessment / Plan
Assessment / Plan
Impression:
Mr. Houston Rea is a 85-year-old male with a PMH notable for hypertension, BPH, hyperlipidemia, HFpEF, Guillain-[place] syndrome (1970), colon cancer (surgery and chemo), GERD, and anxiety, who presents with transient expressive aphasia.
Plan:
#Evaluation for TIA/CVA for episode of expressive aphasia at 2pm, lasted about 30 minutes then fully resolved.
HX sever anaphylaxis reaction to Iodine contrast
Unable to speak or get any words out.
Denies any weakness/paresthesia. No facial droop according to his . Symptoms resolved prior to EMS eval. Neuro exam normal here.
NEG Head CT. unremarkable labs and EKG. MRA H & N unremarkable. Brain MRI unremarkable
- Neuro consult
NIHSS 1 for deficit in right foot sensation on 06/18/2025. Patient denies history of diabetes or peripheral vascular disease.
#Essential Hypertension
�Permissive hypertension. Pending neurology recs
#Hyperlipidemia
- consider starting a statin. Pending neurology recs
#BPH
Stable. Patient used to take medication for BPH, but his symptoms resolved so he stopped taking medication
#HFpEF
#Guillain-[place] (1970)
#colon cancer (surgery and chemo)
#GERD
#anxiety
DVT Prophylaxis: SCD
Full Code
OBS TLM
Anticipated Discharge: 24 - 48 hours
Subjective/Interval History
-
Date of Service: June 18, 2025
No acute events overnight. Patient denies all episodes of expressive aphasia, visual changes, tingling, numbness,, weakness.
Objective Data
-
Labs:
Laboratory Data
06/17/25 15:34
06/17/25 15:34
PT 13.0 Sec (11.4-14.6) 06/17/25 15:34
INR 0.95 06/17/25 15:34
APTT 28.9 Sec (23.4-35.0) 06/17/25 15:34
Total Bilirubin 0.5 mg/dl (0.2-1.3) 06/17/25 15:34
AST 27 U/L (17-59) 06/17/25 15:34
ALT 27 U/L (0-50) 06/17/25 15:34
Alkaline Phosphatase 70 U/L (38-126) 06/17/25 15:34
Total Protein 7.7 g/dl (6.3-8.2) 06/17/25 15:34
Albumin 4.8 g/dl (3.5-5.0) 06/17/25 15:34
Vital Signs:
Vital Signs
Temp Pulse Resp BP Pulse Ox
97.8 F 68 20 166/85 98
06/18/25 03:26 06/18/25 03:26 06/18/25 03:26 06/18/25 03:26 06/18/25 03:26
I&O
06/17/25 06/18/25 06/19/25
06:59 06:59 06:59
Intake Total 120 / 120
Output Total 400 / 400
Balance -280 / -280
Review of Systems
-
History Source: Patient
All other systems: Reviewed and negative
Physical Exam
-
General: Well Developed, Well Nourished, No Apparent Distress and Comfortable
HEENT: Normocephalic, Atraumatic, Moist Mucous Membranes, PERRLA, Nose Appears Normal and Ears Appear Normal
Respiratory: Clear to Auscultation
Cardiac: Regular Rhythm and S1/S2
GI: Soft, Nontender, Nondistended, Normal Bowel Sounds and Flat
Musculoskeletal: No Clubbing, No Cyanosis and No Edema
Skin: Warm and Dry
Neuro: Awake, Alert, Oriented, Nonfocal/Grossly Intact, Central Nerve's Intact and No Sensory Deficits
Psych: Calm
Data Reviewed
-
Total Time Spent with Patient (in minutes): 25
Diagnostic Radiology: Report Reviewed by me
CT Scan: Report Reviewed by me
MRI: Report Reviewed by me
Medical Tests (Nuc Med, Echo etc): Report Reviewed by me
Labs: Labs Reviewed by me
Old Records: Reviewed
[2025-06-18] MEDS: LOW STRENGTH ASPIRIN 81 MG PO (08:39)
[2025-06-18] MEDS: MIRALAX PO (08:39)
--- NOTE | 2025-06-18 08:55 | PTOTSP ---
Speech Pathology
Clinical Swallow Evaluation
85M with admission for CVA/TIA symptoms that have since resolved. No overt s/s of aspiration observed with all consistencies trialed this date. HCT negative. MRI planned for this AM (06/18). Cognition and speech-language appear WNL to observation. No
overt concerns for aspiration or dysphagia at this time. [facility] POTTER service to follow up only if MRI positive.
Recommend:
1. Maintain regular textures (IDDSI 7), thin liquids (IDDSI 0)
2. Meds as best tolerated
3. General aspiration precautions
4. Reflux precautions upright 30 minutes post meal
5. HAND POTTER service to follow up ONLY IF MRI positive; IF MRI positive, would recommend cognitive communication evaluation and dysphagia f/u
--- NOTE | 2025-06-18 09:16 | W.PN.UPDATE ---
Addendum entered and electronically signed by Jeanette Shearer MD 06/18/25 15:10:
Notified [facility] cardiology about the need for long-term monitoring and echo
Original Note:
Update Note
Progress Note Update
Seen and examined the patient. Agree with plans put forth by resident. See changes in my documentation
Head CT-no acute changes
EKG-sinus rhythm with PVCs
MRI/MRA-no acute intraconal abnormalities, stenosis aneurysm or occlusion
CVS: S1-S2 normal
Chest: CTA B/L
Abdomen: Soft, NT / Bowel sounds present
Extremities: No edema
INSTRUMENT PERSON: Good motor strength bilateral lower extremities however has some physical actions. No facial droop, normal strength upper extremity bilaterally.
# Symptoms of TIA with expressive aphasia lasted about 30 minutes
Patient has also been having progressive ambulatory dysfunction
Neurochecks, NIH scale
MRI/MRA as above
Neurology evaluation appreciated
Recommending EMG feels patient is staying till Thursday for rehab placement.
If he is staying I would also get echo done as inpatient otherwise he will have to set this up as outpatient.
Discussed about chances of fall at home as PT is recommending rehab however patient adamant that he wants to go home.
Neurology recommending statin, 21 days of Plavix and aspirin 81 mg daily
PT OT evaluation-recommending rehab
# GBS in 1970-mostly in wheelchair now for the past 2 weeks. Patient was walking with a walker prior to that and was walking with a cane. About 2 months ago
# GERD-patient does not take any medicines.
# Enlarged prostate-watch for any difficulty voiding
# History of colon cancer status post hemicolectomy and chemotherapy-details unknown
# History of suprapubic catheter, then removed
# History of pyloric stenosis repair as a child
# DDD/sciatica/ambulatory dysfunction
# Ex-smoker
# DVT prophylaxis-Lovenox
# Full code
Discussed with neurology
Discussed with nursing
Discussed with patient's on the phone
PT OT recommending rehab
If patient is staying till Thursday for rehab placement will obtain EMG as well as echo on Thursday, however patient states that he has had several hospital stays and does not want to go to inpatient rehab. He wants to start outpatient PT at home.
Discussed about need for getting
time more than 40 min
Part of this note was created using voice recognition system. Occasional wrong word or��sound alike� substitutions may have inadvertently occurred due to the inherent limitations of voice recognition software. If noted kindly bring it to my
attention for correction.
--- NOTE | 2025-06-18 09:30 | PTCARENOTE ---
Dr. Shearer made aware pt. b/p 161/71 this AM and pt. bp running on the higher side overnight. Nurse to monitor bp for now. Dr. Shearer also made aware pt. did not receive any aspirin or Plavix in ED, however he did receive 81 mg aspirin this am.
Pt. awaiting Neuro consult and MRI.
--- NOTE | 2025-06-18 15:13 | CON.NEURO ---
Neuro Assessment/Plan
Assessment
Brain MRI imgs rev'd, no stroke.
MRA head/neck no hemodynamically significant stenosis
HDL 32, LDL 138
85 year old man with TIA, full resolved.
patient given full dose ASA started ASA 81,
I will add Plavix load and 21 days of plavix; and atorvastatin 40
believe that he can be discharged home and get outpatient ECHO, and I quoted him a 3 year afib detection rate 35-40% ([facility]-AF) if he were to get ILR which he is not interested
6 months of progressive weakness, most likely this is the after effects of GBS catching up to him decades later, however I did see fasciculations in his calves and question if he has ALS; the patient says it is from chronic cramping that started
shortly after his GBS but to me it looks like fasciculations. PT/OT recommended rehab, and I asked Dr Clark for EMG, because if he has ALS there is no point in sending him to acute or subacute rehab as you can't beat the disease and he should just
get outpatient PT. The patient wanted to go home, and I still advised that he get the EMG study as an outpatient; but he ultimately stayed anyway for blood pressure problems.
Consultation
Order
Date of Consultation: 06/18/25
Requesting Provider: Kacie
Reason for Consult: TIA
Subjective/Objective
Subjective Data
Date of Service: June 18, 2025
from h&p:
Patient is a 85-year-old male with past medical history of hypertension, hyperlipidemia, HFpEF, Guillain-[place]nath (1970), BPH, anxiety and GERD who presented to [facility] ED for evaluation of expressive aphagia. Patient earlier today had a acute onset of
expressive aphagia and was unable to find words appropriately. Symptoms resolved prior to EMS arrival and family denies any other associated symptoms.
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 Now with ~6 months progressive weakness in b/l legs, 2 months ago was using a cane and now he is in a wheelchair.
Objective Data
Vital Signs
Temp Pulse Resp BP Pulse Ox
36.3 C 70 16 161/71 99
06/18/25 08:38 06/18/25 08:38 06/18/25 08:38 06/18/25 08:38 06/18/25 08:45
Lab Results
06/17/25 15:34
06/17/25 15:34
PT 13.0 Sec (11.4-14.6) 06/17/25 15:34
INR 0.95 06/17/25 15:34
APTT 28.9 Sec (23.4-35.0) 06/17/25 15:34
Sodium 140 mmol/L (135-145) 06/17/25 15:34
Potassium 4.0 mmol/L (3.5-5.1) 06/17/25 15:34
BUN 18 mg/dl (9-20) 06/17/25 15:34
Glucose 100 mg/dl (70-99) H 06/17/25 15:34
Calcium 9.0 mg/dl (8.4-10.2) 06/17/25 15:34
LDL Cholesterol, Calc 138 mg/dl 06/18/25 07:08
Patient Allergies
iodine Allergy (Verified 06/17/25 15:19)
'Deadly'
Physical Exam
-
AAOx3, speech clear, language intact
VFF, EOMI, face symmetric
full strenght b/l UE
rt foot drop, calf fasciculations b/l
moderate vibratory loss both ankles
reflexes diffusely 1+
Medications
-
Active Medications
Generic Name Dose Route Start Last Admin
Trade Name Freq PRN Reason Stop Dose Admin
Acetaminophen 650 mg 06/17/25 22:17 06/17/25 22:40
Acetaminophen 325 Mg Tablet PO 07/15/25 22:16 650 mg
Q4HPRN PRN Administration
BEGUM, mild pain, or temp >100.4F
Aspirin 81 mg 06/18/25 08:00 06/18/25 08:39
Aspirin 81 Mg Chewable Tablet PO 07/16/25 07:59 81 mg
DAILY ENEDINA Administration
Enoxaparin Sodium 40 mg 06/18/25 18:00
Enoxaparin Sodium 40 Mg/0.4 Ml Syringe SC 07/16/25 17:59
QPM ENEDINA
Polyethylene Glycol 17 grams 06/18/25 08:00 06/18/25 08:39
Polyethylene Glycol Powder 17 Grams Packet PO 07/16/25 07:59 Not Given
DAILY ENEDINA
Senna/Docusate Sodium 1 tablet 06/17/25 22:17
Docusate W/Senna (Nette-Colace) Tablet PO 07/15/25 22:16
BIDPRN PRN
constipation
Home Medications
�Medication �Instructions �Recorded
acetaminophen 500 mg tablet 1,000 mg PO Q6H PRN pain 06/17/25
fiber 3 cap PO HS Constipation 06/17/25
ibuprofen 400 mg tablet 400 mg PO Q6H PRN pain 06/17/25
mecobalamin (vitamin B12) 1,000 1,000 mcg PO DAILY Supplement 06/17/25
mcg chewable tablet (B12 Active)
melatonin 10 mg tablet 10 mg PO HS PRN insomnia 06/17/25
--- NOTE | 2025-06-18 15:17 | W.DCSUMMARY ---
Discharge Summary
Discharge Data
Date of Admission: 06/17/25
Date of Discharge: 06/21/25
-
Pending Results: No
Hospital Course
Primary diagnosis:
Transient ischemic attack
Hyperlipidemia
Bilateral lower extremity weakness, chronic
Secondary diagnoses:
Hypertension
History of Guillain-Cobos� syndrome
Mr. Houston Rea is a 85-year-old male with a PMH notable for hypertension, BPH, hyperlipidemia, HFpEF, Guillain-[place] syndrome (1970), colon cancer (surgery and chemo), GERD, and anxiety, who presents with transient expressive aphasia.
His head CT, MRI head, MRA neck, labs, and EKG have been unremarkable, other than hyperlipidemia. His vitals were stable except for hypertension to systolic blood pressure of 160s.
He was discharged with aspirin 81 mg p.o. daily for 21 days, Plavix 75 mg p.o. daily for 21 days, and atorvastatin 40 mg p.o. daily, and amlodipine 2.5 mg p.o. daily.
Follow up with cardiology for an outpatient infusion rn.
#TIA/CVA
Expressive aphasia, about 30 minutes then fully resolved.
HX sever anaphylaxis reaction to Iodine contrast
NEG Head CT. unremarkable labs and EKG. MRA H & N unremarkable. Brain MRI unremarkable
Neuro consulted
- started aspirin 81 mg po daily, clopidogrel 75 mg po daily for 21 days
NIHSS 1 for deficit in right foot sensation on 06/18/2025. Patient denies history of diabetes or peripheral vascular disease. NIHSS 0 06/19/25: Bilateral sensation intact in lower extremities, including with socks on.
� Echo: LVEF normal 60% by Saini's biplane method of discs. RV size and function WNL. AV sclerosis of multiple aortic cusps, but no aortic stenosis
#Essential Hypertension
� Norvasc (amlodipine) 2.5 mg po daily
- Hydralazine 5 mg Q4h prn for sysbp > 160
#Hyperlipidemia
- started atorvastatin 40 mg po daily
#Bilateral lower extremity weaknesses
Chronic, for a few months
PT/OT recommended SNF rehab for bilateral lower extremity weakness
- EMG obtained: Please see report for complete report. 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 Nerve conduction study shows absent sensory responses in bilateral lower limbs. 2) acute on chronic muscle
denervation in right tensor fascia ana maria and gluteus leona muscles, which can be seen in L5 and/or S1 radiculopathy but also motor neuron disease. It is consistent with patient's reported sciatica.
#BPH: Patient used to take medication for BPH, but his symptoms resolved so he stopped taking medication
#HFpEF
#Guillain-[place] (1971)
#colon cancer (surgery and chemo)
#GERD
#anxiety
DVT Prophylaxis: SCD
Full Code
OBS TLM
Dispo: SNF
Discharge Plan
-
Patient Disposition: Assisted/SNF
Discharge Diagnosis/Procedures: Primary diagnosis:
Transient ischemic attack
Hyperlipidemia
Bilateral lower extremity weakness, chronic
Secondary diagnoses:
Hypertension
History of Guillain-Cobos� syndrome
Diet: Low Cholesterol and 2 Gram Sodium
Activity: As tolerated
Driving Restrictions: As prior to admission
Other Services: VN
Referrals:
Bipin Anand MD [Active, Cardiology]
Referral Note: for long-term infusion rn and also to get echo
Raj Brownlee MD [Family Provider, Internal Medicine] - in less than 1 week
Andrzej Combs MD [Active, Neurology]
Additional Discharge Medication Instructions: Please take aspirin 81 mg daily, clopidogrel 75 mg daily for 21 days, and atorvastatin 40 mg daily to prevent recurrence of the transient ischemic attack.
Please also take amlodipine 2.5 mg daily to lower your blood pressure, which also helps prevent another TIA or stroke.
Please follow-up with a service order expediter for a infusion rn. Please also follow-up with a neurologist.
Prescriptions:
New
atorvastatin [Lipitor] 40 mg tablet
40 mg PO DAILY Qty: 30 0RF
aspirin 81 mg Tablet,Chewable
81 mg PO DAILY 21 Days Qty: 30 0RF
amlodipine [Norvasc] 2.5 mg tablet
2.5 mg PO DAILY Qty: 30 0RF
clopidogrel 75 mg Tablet
75 mg PO DAILY Qty: 18 0RF
Continued
acetaminophen 500 mg Tablet
1,000 mg PO Q6H PRN (Reason: pain)
fiber Capsule
3 cap PO HS
melatonin 10 mg Tablet
10 mg PO HS PRN (Reason: insomnia)
mecobalamin (vitamin B12) [B12 Active] 1,000 mcg Tablet,Chewable
1,000 mcg PO DAILY
Discontinued
ibuprofen [Motrin] 400 mg Tablet
400 mg PO Q6H PRN (Reason: pain)
Discharge Orders:
Discharge Patient (As Directed); Ordered 06/20/25
Ordered By: Nacho Nolan
Discharge Date and Time
Print Language: KAZAKH
--- NOTE | 2025-06-18 16:10 | PTCARENOTE ---
Dr. Shearer made aware pt. b/p 171/81 hr 69. New orders to follow.
--- NOTE | 2025-06-18 16:27 | W.PN.HOSP.TC ---
Today's Communication/Plan
-
Patient will choose a SNF today and then the pillowcase cleaner will submit a prior authorization request, which will not be reviewed until tomorrow.
Per 's request, echo and EMG were ordered. Patient received echo, which was unremarkable. EMG was not able to be done today, so patient received instructions to schedule it outpatient.
Assessment / Plan
Assessment / Plan
Impression:
Mr. Houston Rea is a 85-year-old male with a PMH notable for hypertension, BPH, hyperlipidemia, HFpEF, Guillain-[place] syndrome (1970), colon cancer (surgery and chemo), GERD, and anxiety, who presents with transient expressive aphasia.
Plan:
#Evaluation for TIA/CVA for episode of expressive aphasia at 2pm, lasted about 30 minutes then fully resolved.
HX sever anaphylaxis reaction to Iodine contrast
Unable to speak or get any words out.
Denies any weakness/paresthesia. No facial droop according to his . Symptoms resolved prior to EMS eval. Neuro exam normal here.
NEG Head CT. unremarkable labs and EKG. MRA H & N unremarkable. Brain MRI unremarkable
- Neuro consult
NIHSS 1 for deficit in right foot sensation on 06/18/2025. Patient denies history of diabetes or peripheral vascular disease. NIHSS 0 06/19/25: Bilateral sensation intact in lower extremities, including with socks on.
- aspirin 81 mg po daily
- clopidogrel 75 mg po daily for 21 days
#Essential Hypertension
� Norvasc (amlodipine) 2.5 mg po daily
- Hydralazine 5 mg Q4h prn for sysbp > 160
#Hyperlipidemia
- atorvastatin 40 mg po daily
#Bilateral lower extremity weaknesses
Chronic, for a few months
- PT/OT recommended SNF for rehab
#BPH: Patient used to take medication for BPH, but his symptoms resolved so he stopped taking medication
#HFpEF
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
#colon cancer (surgery and chemo)
#GERD
#anxiety
DVT Prophylaxis: SCD
Full Code
OBS TLM
Dispo: SNF
Anticipated Discharge: 24 - 48 hours
Subjective/Interval History
-
Date of Service: June 18, 2025
No acute events overnight. Patient stated his change of heart regarding understanding the utility of going to prison rehab. He recalls working hard to regain his strength after Guillain-[place] syndrome 5 decades ago, and he wants to regain
strength again.
Objective Data
-
Labs:
Lab Results
06/19/25
07:27
WBC 4.5 L
RBC 3.61 L
Hgb 11.3 L
Hct 32.3 L
MCV 89.5
MCH 31.3 H
MCHC 35.0
RDW 13.2
Plt Count 188
MPV 9.0
Sodium 142
Potassium 3.7
Chloride 109 H
Carbon Dioxide 26
BUN 19
Creatinine 1.0
Estimated Creat Clear 50
eGFR > 60.00
Glucose 95
Calcium 8.8
Vital Signs:
Vital Signs
Temp Pulse Resp BP Pulse Ox
97.6 F 69 16 171/81 100
06/18/25 15:50 06/18/25 15:50 06/18/25 15:50 06/18/25 15:50 06/18/25 15:50
I&O
06/17/25 06/18/25 06/19/25
06:59 06:59 06:59
Intake Total 120 / 120
Output Total 400 / 400
Balance -280 / -280
Review of Systems
-
History Source: Patient
Constitutional: Reports No Symptoms
EENT: Reports No Symptoms Reported
Respiratory: Reports No Symptoms
Cardiac: Reports No Symptoms
Abdomen/GI: Reports No Symptoms
Musculoskeletal: Reports Muscle Weakness (Bilateral lower extremity weakness, unsteady with ambulation)
Skin: Reports No Symptoms
Neuro: Reports No Symptoms
Physical Exam
-
General: Well Developed, Well Nourished, No Apparent Distress and Comfortable
HEENT: Normocephalic, Atraumatic and Moist Mucous Membranes
Respiratory: Clear to Auscultation
Cardiac: Regular Rhythm and S1/S2
GI: Soft, Nontender, Nondistended and Normal Bowel Sounds
Musculoskeletal: No Clubbing, No Cyanosis, No Edema and Other (4 out of 5 strength )
Skin: Warm and Dry
Neuro: Awake, Alert, Oriented and No Sensory Deficits (Sensation intact in bilateral lower extremities)
Psych: Calm
Data Reviewed
-
Total Time Spent with Patient (in minutes): 25
[2025-06-18] MEDS: NORVASC 2.5 MG PO (16:35)
[2025-06-18] MEDS: LOVENOX 40 MG SC (17:40)
[2025-06-18] MEDS: TYLENOL 650 MG PO (20:43)
--- NOTE | 2025-06-18 21:20 | PTCARENOTE ---
TT Dr. Henry regarding POC, orders entered per DEC.
[2025-06-18] MEDS: LIPITOR 40 MG PO (22:12)
[2025-06-18] MEDS: PLAVIX 300 MG PO (22:12)
[2025-06-19] VITALS (9 sets, daily range): BP systolic 94–181; BP diastolic 63–87; PULSE 85; O2SAT 99; BMI 28.3
[2025-06-19 08:03] LABS: Hematocrit 32.3 % (39.0-52.0); Hemoglobin 11.3 g/dL (13.0-18.0); Mean Corp Hgb Conc. 35.0 g/dL (33.0-37.0); Mean Corpuscular Volume 89.5 fL (80.0-94.0); Platelet Count 188 10^3/uL (130-400); Red Cell Dist. Width 13.2 % (11.5-14.5)
[2025-06-19 08:46] LABS: Blood Urea Nitrogen 19 mg/dl (9-20); Calcium 8.8 mg/dl (8.4-10.2); Carbon Dioxide 26 mmol/L (22-30); Chloride 109 mmol/L (98-107); Estimated Creatinine Clearance 50 ml/min; Glucose 95 mg/dl (70-99); Potassium 3.7 mmol/L (3.5-5.1); Sodium 142 mmol/L (135-145); eGFR > 60.00
[2025-06-19] MEDS: MIRALAX PO (08:53)
[2025-06-19] MEDS: PLAVIX 75 MG PO (08:53)
[2025-06-19] MEDS: NORVASC 2.5 MG PO (08:53)
[2025-06-19] MEDS: LOW STRENGTH ASPIRIN 81 MG PO (08:53)
--- NOTE | 2025-06-19 12:27 | W.PN.UPDATE ---
Update Note
Progress Note Update
I saw and evaluated the patient. I reviewed the resident�s note and agree with findings and plan as documented in the resident�s note.
No new complaints.
Gen: NAD, AAOx3.
Eyes: EOMI, PERRLA, no scleral icterus.
Neck: supple.
CV: RRR, +S1/S2, no m/r/g.
Resp: CTAB, no rales, wheezes, or rhonchi.
Abd: +BS, soft, NT, ND
Skin: No rashes.
Neuro: CN 2-12 intact, non-focal.
Psych: Normal mood and affect.
MRA head/neck/MRI brain: No acute intracranial abnormality noted. No focal hemodynamically significant stenosis, aneurysm or occlusion.
Acute TIA:
-p/w'd with expressive aphasia lasted about 30 minutes
-seen by neuro
-with subacute progressive ambulatory dysfunction, needs EMG and echo, family insisting pt have these tests done prior to d/c
-cont ASA/statin, plavix for 21 days
-outpt cards eval for Linq placement
Other problems:
h/o GBS in 1970
GERD
h/o colon CA s/p hemicolectomy and chemotherapy
DDD/sciatica/ambulatory dysfunction
FULL/Lovenox
--- NOTE | 2025-06-19 13:43 | CM ---
Met with patient and his as well as daughter on 06/18-explanation provided about obs status. Patient's stated that they live in an apartment on the second floor and they have elevator access. Patient's stated that she assists patient
with his dressing, bathing, ADLs and personal care but this is new as his legs recently became weak. As of yet there is no dx. 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 She has two daughters who are close and
supportive. Patient has been using a w/c, a walker, a cane and a transfer chair since his weakness developed. Patient has had [facility] in the past. Sounds like he is still current. Patient has never been to a SNF.
Patient has a prescription plan and uses, [facility] [place] for all of his medications.
Patient's PCP is, Raj Romero.
PT has indicated SNF and patient and family are agreeable. They chose the following facilities: [facility], [facility], [facility] and [facility]. Will make referrals.
Plan: Case management will continue to follow and assist with discharge planning. SNF upon finding a bed and obtaining auth.
[2025-06-19] MEDS: LOVENOX 40 MG SC (17:27)
[2025-06-19] MEDS: LIPITOR 40 MG PO (17:27)
[2025-06-20 00:05] VITALS: BP 142/65
[2025-06-20 03:00] VITALS: BP 129/68
[2025-06-20 06:00] VITALS: BMI 28.3
[2025-06-20 08:18] VITALS: BP 148/79
[2025-06-20] MEDS: PLAVIX 75 MG PO (08:25)
[2025-06-20] MEDS: MIRALAX 17 GRAMS PO (08:26)
[2025-06-20] MEDS: NORVASC 2.5 MG PO (08:26)
[2025-06-20] MEDS: LOW STRENGTH ASPIRIN 81 MG PO (08:26)
[2025-06-20 08:44] LABS: Hematocrit 36.3 % (39.0-52.0); Hemoglobin 12.1 g/dL (13.0-18.0); Mean Corp Hgb Conc. 33.3 g/dL (33.0-37.0); Mean Corpuscular Volume 91.0 fL (80.0-94.0); Platelet Count 201 10^3/uL (130-400); Red Cell Dist. Width 13.2 % (11.5-14.5)
[2025-06-20 09:46] LABS: Blood Urea Nitrogen 19 mg/dl (9-20); Calcium 8.5 mg/dl (8.4-10.2); Carbon Dioxide 26 mmol/L (22-30); Chloride 108 mmol/L (98-107); Estimated Creatinine Clearance 50 ml/min; Glucose 102 mg/dl (70-99); Potassium 3.9 mmol/L (3.5-5.1); Sodium 142 mmol/L (135-145); eGFR > 60.00
--- NOTE | 2025-06-20 10:09 | W.PN.UPDATE ---
Addendum entered and electronically signed by Nacho Nolan MD 06/20/25 15:22:
Total time spent on d/c = 34 min. This included today's physical exam, progress note, review of laboratory and diagnostic data, preparation of discharge documents and prescriptions, and discussions about the pt's hospital course and discharge plan
with the patient and other medical communication specialist involved in the patient's care.
Original Note:
Update Note
Progress Note Update
I saw and evaluated the patient. I reviewed the resident�s note and agree with findings and plan as documented in the resident�s note.
No new complaints.
Gen: NAD, AAOx3.
Eyes: EOMI, PERRLA, no scleral icterus.
Neck: supple.
CV: remains RRR, +S1/S2, no m/r/g.
Resp: remains CTAB, no rales, wheezes, or rhonchi.
Abd: remains +BS, soft, NT, ND
Skin: No rashes.
Neuro: CN 2-12 intact, non-focal.
Psych: Normal mood and affect.
MRA head/neck/MRI brain: No acute intracranial abnormality noted. No focal hemodynamically significant stenosis, aneurysm or occlusion.
Acute TIA:
-p/w'd with expressive aphasia lasted about 30 minutes
-seen by neuro
-with subacute progressive ambulatory dysfunction, needs EMG and echo, family insisting pt have these tests done prior to d/c
-cont ASA/statin, plavix for 21 days
-outpt cards eval for Linq placement
Other problems:
h/o GBS in 1971
GERD
h/o colon CA s/p hemicolectomy and chemotherapy
DDD/sciatica/ambulatory dysfunction
FULL/Lovenox
[2025-06-20 15:32] VITALS: BP 144/76
--- NOTE | 2025-06-20 16:20 | CM ---
Following up on patient. Medical Team stated that patient is ready for discharge and PT is recommending SNF. SNF referrals were already made so MARIO Nichole met with patient to discuss these options.
FELICIANO complete today 12:45. Patient chose [facility], therefore, spoke to Estella who stated there is a bed available. MARIO Dionisio completed authorization with Lyle via [employer]: [id number]. When MARIO Dionisio went to arrange transport, dtr was at the
nurses station with colleage [facility]. [facility] had this patient prior. Dtr really wants a private room so [facility] Nich[facility] and [facility] is one tomorrow.
Medical Team informed that the family wants a private room and will not go to [facility]. [facility] stated there is a bed tomorrow. MARIO Nichole will call [employer] to change the auth. MARIO Nichole met with the patient/ dtr, (even though just the dtr
earlier) to inform them all together. Medical Team updated on the change.
Plan: SNF to to [facility] tomorrow
--- NOTE | 2025-06-20 17:30 | W.PN.HOSP.TC ---
Today's Communication/Plan
-
A SNF accepted the patient for shared room, but the and daughter then requested a private room. A SNF or the private room has a bed the patient for tomorrow.
Echo was unremarkable. The patient and family received instructions to schedule the EMG outpatient, and to schedule a cardiology follow-up for a outpatient monitor.
Assessment / Plan
Assessment / Plan
Mr. Houston Rea is a 85-year-old male with a PMH notable for hypertension, BPH, hyperlipidemia, HFpEF, Guillain-[place] syndrome (1970), colon cancer (surgery and chemo), GERD, and anxiety, who presents with transient expressive aphasia.
His head CT, MRI head, MRA neck, labs, and EKG have been unremarkable, other than hyperlipidemia. His vitals were stable except for hypertension to systolic blood pressure of 160s.
He was discharged with aspirin 81 mg p.o. daily for 21 days, Plavix 75 mg p.o. daily for 21 days, and atorvastatin 40 mg p.o. daily, and amlodipine 2.5 mg p.o. daily.
Outpatient EMG and cardiology consult for an outpatient quality assurance monitor.
#TIA/CVA
Expressive aphasia, about 30 minutes then fully resolved.
HX sever anaphylaxis reaction to Iodine contrast
NEG Head CT. unremarkable labs and EKG. MRA H & N unremarkable. Brain MRI unremarkable
- Neuro consult: aspirin 81 mg po daily, clopidogrel 75 mg po daily for 21 days
NIHSS 1 for deficit in right foot sensation on 06/18/2025. Patient denies history of diabetes or peripheral vascular disease. NIHSS 0 06/19/25: Bilateral sensation intact in lower extremities, including with socks on.
� Echo: LVEF normal 60% by Saini's biplane method of discs. RV size and function WNL. AV sclerosis of multiple aortic cusps, but no aortic stenosis
#Essential Hypertension
� Norvasc (amlodipine) 2.5 mg po daily
- Hydralazine 5 mg Q4h prn for sysbp > 160
#Hyperlipidemia
- atorvastatin 40 mg po daily
#Bilateral lower extremity weaknesses
Chronic, for a few months
- PT/OT recommended SNF for rehab
#BPH: Patient used to take medication for BPH, but his symptoms resolved so he stopped taking medication
#HFpEF
#Guillain-[place] (1971)
#colon cancer (surgery and chemo)
#GERD
#anxiety
DVT Prophylaxis: SCD
Full Code
OBS TLM
Dispo: SNF
Anticipated Discharge: Within 24 hours
Subjective/Interval History
-
Date of Service: June 20, 2025
No acute events overnight. Patient had no complaints.
Objective Data
-
Labs:
Laboratory Results
06/20/25 06/20/25
08:32 08:33
WBC 5.7
Hgb 12.1 L
Hct 36.3 L
Plt Count 201
Sodium 142
Potassium 3.9
Chloride 108 H
Carbon Dioxide 26
BUN 19
Creatinine 1.0
Glucose 102 H
Calcium 8.5
Vital Signs:
Vital Signs
Temp Pulse Resp BP Pulse Ox
98.0 F 84 18 144/76 95
06/20/25 15:32 06/20/25 15:32 06/20/25 15:32 06/20/25 15:32 06/20/25 15:32
I&O
06/19/25 06/20/25 06/21/25
06:59 06:59 06:59
Intake Total 1380 / 1380 730 / 730
Output Total 875 / 875 800 / 800 200 / 200
Balance 505 / 505 -70 / -70 -200 / -200
Review of Systems
-
History Source: Patient
All other systems: Reviewed and negative
Physical Exam
-
General: Well Developed, Well Nourished, No Apparent Distress and Comfortable
HEENT: Normocephalic, Atraumatic and Moist Mucous Membranes
Respiratory: Clear to Auscultation
Cardiac: Regular Rhythm and S1/S2
GI: Soft, Nontender, Nondistended and Normal Bowel Sounds
Musculoskeletal: No Clubbing, No Cyanosis and No Edema
Skin: Warm and Dry
Neuro: Awake, Alert and Oriented
Psych: Calm
Data Reviewed
-
Diagnostic Radiology: Report Reviewed by me
Labs: Labs Reviewed by me
[2025-06-20] MEDS: LOVENOX 40 MG SC (18:18)
[2025-06-20] MEDS: LIPITOR 40 MG PO (18:18)
--- NOTE | 2025-06-20 19:25 | W.PN.UPDATE ---
Update Note
Progress Note Update
EMG/NCS of both lower limbs was completed at the patient's bedside.
Electrodiagnostic abnormalities are present in both lower limbs consistent with severe chronic length dependent sensorimotor peripheral polyneuropathy.
Needle EMG abnormalities reflecting acute/active muscle denervation and chronic denervation are present in the right tensor fasciae latae and gluteus leona muscle which can be seen in right L5 and or S1 radiculopathy but could also be seen in
motor neuron diseases. Clinically the patient complains of a tendency for severe sciatica involving the right lower limb.
Full dictated report and tabulat data to follow.
[2025-06-20 23:21] VITALS: BP 134/64
[2025-06-21 07:26] VITALS: BP 155/79
[2025-06-21 08:01] LABS: Hematocrit 32.6 % (39.0-52.0); Hemoglobin 11.1 g/dL (13.0-18.0); Mean Corp Hgb Conc. 34.0 g/dL (33.0-37.0); Mean Corpuscular Volume 90.1 fL (80.0-94.0); Platelet Count 178 10^3/uL (130-400); Red Cell Dist. Width 13.2 % (11.5-14.5)
--- NOTE | 2025-06-21 08:21 | W.PN.UPDATE ---
Addendum entered and electronically signed by Nacho Nolan MD 06/21/25 11:24:
Total time spent on d/c = 31 min. This included today's physical exam, progress note, review of laboratory and diagnostic data, preparation of discharge documents and prescriptions, and discussions about the pt's hospital course and discharge plan
with the patient and other medical cash poster involved in the patient's care.
Original Note:
Update Note
Progress Note Update
I saw and evaluated the patient. I reviewed the resident�s note and agree with findings and plan as documented in the resident�s note.
No new complaints.
Gen: NAD, AAOx3.
Eyes: EOMI, PERRLA, no scleral icterus.
Neck: supple.
CV: RRR with frequent premature beats, +S1/S2, no m/r/g.
Resp: continues to remain CTAB, no rales, wheezes, or rhonchi.
Abd: continues to remain +BS, soft, NT, ND
Skin: No rashes.
Neuro: CN 2-12 intact, non-focal.
Psych: Normal mood and affect.
MRA head/neck/MRI brain: No acute intracranial abnormality noted. No focal hemodynamically significant stenosis, aneurysm or occlusion.
Echo:
1. Left ventricular ejection fraction is normal with an ejection fraction of 60 % by Saini's biplane method of discs.
2. Right ventricular size and systolic function are within normal limits.
3. Aortic valve sclerosis of multiple aortic cusps; but no aortic stenosis.
EMG B/L LEs:
1. Chronic length-dependent axonal sensorimotor peripheral polyneuropathy. The needle EMG shows chronic muscle denervation in the leg muscles bilaterally including the tibialis anterior, peroneus longus and medial gastrocnemius. The nerve
conduction study shows absent sensory nerve responses in both lower limbs, absent peroneal motor nerve responses recording from the extensor digitorum brevis, and abnormal tibial motor nerve responses.
2. Acute on chronic muscle denervation is present in the right tensor fascia ana maria and gluteus leona muscles, which can be seen in L5 and/or S1 radiculopathy but can also be seen in motor neuron disease.
The patient complains of recent severe sciatica involving the right lower limb.
Acute TIA:
-p/w'd with expressive aphasia lasted about 30 minutes
-seen by neuro
-cont ASA/statin, plavix for 21 days
-outpt cards eval for Linq placement
Subacute progressive ambulatory dysfunction:
-likely related to prior GBS as per neuro
-B/L LE EMGs with severe chronic length dependent sensorimotor peripheral polyneuropathy
Other problems:
h/o GBS in 1971
GERD
h/o colon CA s/p hemicolectomy and chemotherapy
DDD/sciatica/ambulatory dysfunction
FULL/Lovenox
Remains medically cleared for discharge. Case management aware.
[2025-06-21] MEDS: NORVASC 2.5 MG PO (08:53)
[2025-06-21] MEDS: PLAVIX 75 MG PO (08:53)
[2025-06-21] MEDS: MIRALAX 17 GRAMS PO (08:54)
[2025-06-21] MEDS: LOW STRENGTH ASPIRIN 81 MG PO (08:54)
[2025-06-21 09:24] LABS: Blood Urea Nitrogen 18 mg/dl (9-20); Calcium 8.0 mg/dl (8.4-10.2); Carbon Dioxide 26 mmol/L (22-30); Chloride 108 mmol/L (98-107); Estimated Creatinine Clearance 50 ml/min; Glucose 96 mg/dl (70-99); Potassium 4.1 mmol/L (3.5-5.1); Sodium 142 mmol/L (135-145); eGFR > 60.00
--- NOTE | 2025-06-21 11:07 | CM ---
Addendum entered by Dionisio Ríos 06/21/25 11:47:
PASRR faxed to [facility]
Addendum entered by Dionisio Ríos 06/21/25 11:33:
[facility]
[address] [place] [address] Road
[facility] [address]
Report: #[phone]
Fax: #[phone]
Original Note:
Following up on patient.
MARIO Nichole was able to change the authorization via phone with volunteer patient representative.
[employer]: #[id number]
06/21 to 06/26
NRD: 06/27 to Sameera: P: [phone]; F: [phone]
Information was provided to carol Draper for [facility]. Transport arranged by Admin at [facility] for 3pm. Patient aware, Medical Team aware, and no IMM needed.
Plan: To [facility] with private room for SNF today.
[2025-06-21] MEDS: SENOKOT-S 1 TABLET PO (13:23)
[2025-06-21 15:31] VITALS: BP 161/82
--- NOTE | 2025-06-21 16:11 | W.DCSUMMARY ---
Discharge Summary
Discharge Data
Date of Admission: 06/17/25
Date of Discharge: 06/21/25
-
Pending Results: No
Hospital Course
Primary diagnosis:
Transient ischemic attack
Hyperlipidemia
Bilateral lower extremity weakness, chronic
Secondary diagnoses:
Hypertension
History of Guillain-Cobos� syndrome
Mr. Houston Rea is a 85-year-old male with a PMH notable for hypertension, BPH, hyperlipidemia, HFpEF, Guillain-Rickreall syndrome (1970), colon cancer (surgery and chemo), GERD, and anxiety, who presents with transient expressive aphasia.
His head CT, MRI head, MRA neck, labs, and EKG have been unremarkable, other than hyperlipidemia. His vitals were stable except for hypertension to systolic blood pressure of 160s.
He was discharged with aspirin 81 mg p.o. daily for 21 days, Plavix 75 mg p.o. daily for 21 days, and atorvastatin 40 mg p.o. daily, and amlodipine 2.5 mg p.o. daily.
Follow up with cardiology for an outpatient desk monitor.
#TIA/CVA
Expressive aphasia, about 30 minutes then fully resolved.
HX sever anaphylaxis reaction to Iodine contrast
NEG Head CT. unremarkable labs and EKG. MRA H & N unremarkable. Brain MRI unremarkable
Neuro consulted
- started aspirin 81 mg po daily, clopidogrel 75 mg po daily for 21 days
NIHSS 1 for deficit in right foot sensation on 06/18/2025. Patient denies history of diabetes or peripheral vascular disease. NIHSS 0 06/19/25: Bilateral sensation intact in lower extremities, including with socks on.
� Echo: LVEF normal 60% by Saini's biplane method of discs. RV size and function WNL. AV sclerosis of multiple aortic cusps, but no aortic stenosis
#Essential Hypertension
� Norvasc (amlodipine) 2.5 mg po daily
- Hydralazine 5 mg Q4h prn for sysbp > 160
#Hyperlipidemia
- started atorvastatin 40 mg po daily
#Bilateral lower extremity weaknesses
Chronic, for a few months
PT/OT recommended SNF rehab for bilateral lower extremity weakness
- EMG obtained: Please see report for complete report. 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 Nerve conduction study shows absent sensory responses in bilateral lower limbs. 2) acute on chronic muscle
denervation in right tensor fascia ana maria and gluteus leona muscles, which can be seen in L5 and/or S1 radiculopathy but also motor neuron disease. It is consistent with patient's reported sciatica.
Discharge Plan
-
Patient Disposition: Correction/SNF
Discharge Diagnosis/Procedures: Primary diagnosis:
Transient ischemic attack
Hyperlipidemia
Bilateral lower extremity weakness, chronic
Secondary diagnoses:
Hypertension
History of Guillain-Cobos� syndrome
Diet: Low Cholesterol and 2 Gram Sodium
Activity: As tolerated
Driving Restrictions: As prior to admission
Other Services: VN
Referrals:
Bipin Anand MD [Active, Cardiology]
Referral Note: for long-term desk monitor and also to get echo
Raj Brownlee MD [Family Provider, Internal Medicine] - in less than 1 week
Andrzej Combs MD [Active, Neurology]
Additional Discharge Medication Instructions: Please take aspirin 81 mg daily, clopidogrel 75 mg daily for 21 days, and atorvastatin 40 mg daily to prevent recurrence of the transient ischemic attack.
Please also take amlodipine 2.5 mg daily to lower your blood pressure, which also helps prevent another TIA or stroke.
Please follow-up with a desolderer for a desk monitor. Please also follow-up with a neurologist.
Prescriptions:
New
atorvastatin [Lipitor] 40 mg tablet
40 mg PO DAILY Qty: 30 0RF
aspirin 81 mg Tablet,Chewable
81 mg PO DAILY 21 Days Qty: 30 0RF
amlodipine [Norvasc] 2.5 mg tablet
2.5 mg PO DAILY Qty: 30 0RF
clopidogrel 75 mg Tablet
75 mg PO DAILY Qty: 18 0RF
Continued
acetaminophen 500 mg Tablet
1,000 mg PO Q6H PRN (Reason: pain)
fiber Capsule
3 cap PO HS
melatonin 10 mg Tablet
10 mg PO HS PRN (Reason: insomnia)
mecobalamin (vitamin B12) [B12 Active] 1,000 mcg Tablet,Chewable
1,000 mcg PO DAILY
Discontinued
ibuprofen [Motrin] 400 mg Tablet
400 mg PO Q6H PRN (Reason: pain)
Discharge Orders:
Discharge Patient (As Directed); Ordered 06/20/25
Ordered By: Nacho Nolan
Discharge Date and Time
Print Language: [place] ISLANDER
--- NOTE | 2025-06-21 16:12 | W.PN.HOSP.TC ---
Today's Communication/Plan
-
CM called insurance to switch SNF. Patient now ready to be discharged.
Assessment / Plan
Assessment / Plan
Mr. Houston Rea is a 85-year-old male with a PMH notable for hypertension, BPH, hyperlipidemia, HFpEF, Guillain-Umpire syndrome (1971), colon cancer (surgery and chemo), GERD, and anxiety, who presents with transient expressive aphasia.
His head CT, MRI head, MRA neck, labs, and EKG have been unremarkable, other than hyperlipidemia. His vitals were stable except for hypertension to systolic blood pressure of 160s.
#TIA/CVA
Expressive aphasia, about 30 minutes then fully resolved.
HX sever anaphylaxis reaction to Iodine contrast
NEG Head CT. unremarkable labs and EKG. MRA H & N unremarkable. Brain MRI unremarkable
Neuro consulted
- started aspirin 81 mg po daily, clopidogrel 75 mg po daily for 21 days
NIHSS 1 for deficit in right foot sensation on 06/18/2025. Patient denies history of diabetes or peripheral vascular disease. NIHSS 0 06/19/25: Bilateral sensation intact in lower extremities, including with socks on.
� Echo: LVEF normal 60% by Saini's biplane method of discs. RV size and function WNL. AV sclerosis of multiple aortic cusps, but no aortic stenosis
#Essential Hypertension
� Norvasc (amlodipine) 2.5 mg po daily
- Hydralazine 5 mg Q4h prn for sysbp > 160
#Hyperlipidemia
- started atorvastatin 40 mg po daily
#Bilateral lower extremity weaknesses
Chronic, for a few months
PT/OT recommended SNF rehab for bilateral lower extremity weakness
- EMG obtained: Please see report for complete report. 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 Nerve conduction study shows absent sensory responses in bilateral lower limbs. 2) acute on chronic muscle
denervation in right tensor fascia ana maria and gluteus leona muscles, which can be seen in L5 and/or S1 radiculopathy but also motor neuron disease. It is consistent with patient's reported sciatica.
#BPH: Patient used to take medication for BPH, but his symptoms resolved so he stopped taking medication
#HFpEF
#Guillain-Umpire (1971)
#colon cancer (surgery and chemo)
#GERD
#anxiety
DVT Prophylaxis: SCD
Full Code
OBS TLM
Dispo: SNF
Anticipated Discharge: Today
Subjective/Interval History
-
Date of Service: June 21, 2025
No complaints. no acute events overnight.
Objective Data
-
Labs:
Laboratory Results
06/21/25
07:22
WBC 5.9
Hgb 11.1 L
Hct 32.6 L
Plt Count 178
Sodium 142
Potassium 4.1
Chloride 108 H
Carbon Dioxide 26
BUN 18
Creatinine 1.0
Glucose 96
Calcium 8.0 L
Vital Signs:
Vital Signs
Temp Pulse Resp BP Pulse Ox
98.5 F 84 18 161/82 97
06/21/25 15:31 06/21/25 15:31 06/21/25 15:31 06/21/25 15:31 06/21/25 15:31
I&O
06/20/25 06/21/25 06/22/25
06:59 06:59 06:59
Intake Total 730 / 730 1380 / 1380
Output Total 800 / 800 1100 / 1100
Balance -70 / -70 280 / 280
Review of Systems
-
History Source: Patient
All other systems: Reviewed and negative
Physical Exam
-
General: Well Developed, Well Nourished, No Apparent Distress and Comfortable
HEENT: Normocephalic, Atraumatic, Moist Mucous Membranes, Nose Appears Normal and Ears Appear Normal
Respiratory: Clear to Auscultation
Cardiac: Regular Rhythm and S1/S2
GI: Soft, Nontender, Nondistended, Normal Bowel Sounds, No Hepatosplenomegaly and No Hernias
Musculoskeletal: No Clubbing, No Cyanosis and No Edema
Skin: Warm and Dry
Neuro: Awake, Alert and Oriented
Data Reviewed
-
Total Time Spent with Patient (in minutes): 25
Ultrasound: Report Reviewed by me
Labs: Labs Reviewed by me
== END 2025-06-21 16:15 ==
LOC: 4 EAST ACU 21:09
PROVIDERS: Emergency Medicine; Nurse Practitioner Family; ADMITTING PHYSICIAN Internal Medicine; ATTENDING PHYSICIAN Internal Medicine; CONSULT PHYSICIAN Psychiatry & Neurology Clinical Neurophysiology; EMERGENCY PHYSICIAN Emergency Medicine; FAMILY PHYSICIAN Internal Medicine
DX: G45.9 Transient cerebral ischemic attack, unspecified (principal); R47.01 Aphasia; R53.1 Weakness; I11.0 Hypertensive heart disease with heart failure; N40.0 Benign prostatic hyperplasia without lower urinary tract symptoms; I70.0 Atherosclerosis of aorta; I49.8 Other specified cardiac arrhythmias; I49.3 Ventricular premature depolarization; G62.9 Polyneuropathy, unspecified; K21.9 Gastro-esophageal reflux disease without esophagitis; I50.32 Chronic diastolic (congestive) heart failure; F41.9 Anxiety disorder, unspecified; M54.31 Sciatica, right side; E78.5 Hyperlipidemia, unspecified; I08.0 Rheumatic disorders of both mitral and aortic valves; Z85.038 Personal history of other malignant neoplasm of large intestine; Z92.21 Personal history of antineoplastic chemotherapy; Z90.49 Acquired absence of other specified parts of digestive tract; Z87.892 Personal history of anaphylaxis; Z91.041 Radiographic dye allergy status; Z87.891 Personal history of nicotine dependence; Z79.899 Other long term (current) drug therapy; Z86.19 Personal history of other infectious and parasitic diseases; Z96.651 Presence of right artificial knee joint
CPT/HCPCS: 70450; 70544; 70548; 70551; 80048; 80053; 80061; 82962; 84484; 85025; 85027; 85610; 85730; 92610; 93005; 93306; 95886; 95910; 97163; 97167; 97530; 99285; A9585; G0378

== ENCOUNTER 2025-07-21 16:47 | Inpatient (IN) | payer MEDICARE, SELFPAY ==
[2025-07-21] VITALS (12 sets, daily range): BP systolic 110–168; BP diastolic 60–101; PULSE 94–96; BMI 24.5; BMI 24.1
[2025-07-21 14:38] LABS: INR 1.10; PT 14.5 Sec (11.4-14.6)
[2025-07-21 14:39] LABS: APTT 33.0 Sec (23.4-35.0)
[2025-07-21 14:42] LABS: Hematocrit 22.0 % (39.0-52.0); Hemoglobin 7.3 g/dL (13.0-18.0); Mean Corp Hgb Conc. 33.2 g/dL (33.0-37.0); Mean Corpuscular Volume 89.4 fL (80.0-94.0); Platelet Count 374 10^3/uL (130-400); Red Cell Dist. Width 14.6 % (11.5-14.5)
[2025-07-21 14:46] LABS: ALT (SGPT) 30 U/L (0-50); AST (SGOT) 27 U/L (17-59); Albumin 3.4 g/dl (3.5-5.0); Alkaline Phosphatase 126 U/L (38-126); Blood Urea Nitrogen 13 mg/dl (9-20); Calcium 7.9 mg/dl (8.4-10.2); Carbon Dioxide 28 mmol/L (22-30); Chloride 104 mmol/L (98-107); Estimated Creatinine Clearance 63 ml/min; Glucose 111 mg/dl (70-99); Potassium 3.8 mmol/L (3.5-5.1); Sodium 139 mmol/L (135-145); Total Protein 6.3 g/dl (6.3-8.2); eGFR > 60.00
[2025-07-21 15:19] LABS: Absolute Neutrophils -Man Diff 2.9 10^3/uL (1.4-6.5); Normal RBC Morphology Yes; Platelets Checked Yes; Total Cells Counted 100
--- NOTE | 2025-07-21 15:22 | ED.GENMED ---
History of Present Illness
<Rekha Oscar IT PROGRAM ENGAGEMENT DIRECTOR - Last Filed: 07/21/25 18:02>
General
Chief Complaint: Abnormal Lab Value
Source: patient and spouse
Exam Limitations: none
Time Seen by Provider: 07/21/25 14:13
Nursing documentation reviewed up to this point in time: agreed with
History of Present Illness
History of Present Illness:
85-year-old male was sent here by PCP after outpatient labs showed a low hemoglobin. He went to his PCP 07/15days ago for neck pain and low-grade fevers. Had outpatient lab work done 2 days ago with hemoglobin of 7.6, had repeat hemoglobin done
yesterday and it was 7.2 so he was called by his PCP and told to come in here. He denies F/C, denies N/V/C/D however at bedside states she thinks his stools are darker than usual
He denies SOB, CP or abdominal pain. He denies feeling dizzy or lightheaded.
Patient has a history of TIA symptoms 06/17 and was admitted here and discharged on 06/21 after normal MRI and CAT scan. He went to rehab for 2 weeks because he has been having gradually increasing leg weakness to the point where he is now
wheelchair-bound. states that ever since that discharge date he has had headaches, neck pains and that is why he went to see his PCP.
Throughout the entire month of May, he was taking ibuprofen 800 mg 4 times daily for his pain
After he saw his PCP on 07/15 he stopped taking so much ibuprofen but does admit to taking 600 mg 3 times daily since 07/15.
Past History
<Rekha Oscar IT PROGRAM ENGAGEMENT DIRECTOR - Last Filed: 07/21/25 18:02>
Past History
ED Past Medical History: Other (Guillain-Cobos�)
ED Past Surgical History: Bowel resection, Orthopedic (Knee replacement) and Other (Eye surgery)
Social History
Tobacco: Non-smoker
Alcohol: None
Drug: None
Personal:
Living: with family
Employment: Retired
Review of Systems
<Rekha Oscar, IT PROGRAM ENGAGEMENT DIRECTOR - Last Filed: 07/21/25 18:02>
Review of Systems
Allergies reviewed?: Yes
All Other Systems: ROS reviewed and negative except as documented in HPI and ROS
Phy Exam
<Rekha Oscar, IT PROGRAM ENGAGEMENT DIRECTOR - Last Filed: 07/21/25 18:02>
Physical Exam
Physical Exam:
GENERAL: No acute distress. A&Ox3.
CONSTITUTIONAL: Afebrile.
EYES: clear, conjunctivae normal
ENMT: moist mucus membranes, Pharynx nl
RESPIRATORY: Regular respirations, nonlabored, lungs clear.
CARDIOVASCULAR: Regular rate and rhythm
GI: Soft, nontender, normal BS
Rectal: Stool dark, heme positive
MUSCULOSKELETAL: Well perfused.
SKIN: Warm, dry, pale
PSYCH: Normal mood and affect. Well kept, interactive and appropriate
NEUROLOGIC: Awake, alert and oriented. No focal neurological deficits
Course
<Rekha Oscar, IT PROGRAM ENGAGEMENT DIRECTOR - Last Filed: 07/21/25 18:02>
Orders/Labs/Results
Orders:
Orders
07/21/25 Breakfast
Clear Liquid
07/21/25 14:17
Type And Crossmatch [Type+Screen] Urgent
Complete Blood Count/With Diff Urgent
Comprehensive Metabolic Panel Urgent
Manual Differential Urgent
PTT Urgent
Prothrombin Time Urgent
07/21/25 15:34
Pantoprazole 80 mg/100 ml Nss [Protonix] 80 mg in 100 ml IV NOW
Pantoprazole [Protonix IV] 80 mg IV NOW STA
07/21/25 15:35
IV Insert/Care/Rem.- Treatment PRN
07/21/25 15:42
GASTROINTESTINAL CONSULT Urgent
Consulting Provider: Dora Clark
Was physician already notified: Yes
Reason for consult: GI bleed, dark heme + stools.
07/21/25 16:04
Admit/Transfer Patient As Directed
Co-Sign Provider:
Level of Care: Inpatient admission
Assign to:: Medical/Surgical
Physician / Group: chavez
Diagnosis: GI bleed
Reason for Hospitalization: GI bleed
Expected length of stay greater than two midnights?: Yes
ELOS- Estimated Length of Stay in days: 3
I certify the patient meets the requirements for IP care: Yes
PRN Pain Medication Management As Directed
May give lesser potent ordered pain med per pt: Yes
preference::
Protocol:: Medication orders for pain may be administered in a
manner that supports deferring to patient preference
when the pt is:
- Requesting an ordered lesser potent pain medication.
Least to most potent pain medications are defined
as: acetaminophen < NSAID < tramadol < opioids
(morphine, oxycodone, hydromorphone).
- Requesting a lesser dose of the same medication IF
ORDERED.
- Requesting a less intrusive route of administration
if both routes are prescribed by the provider (PO <
IV).
07/21/25 16:05
Code Status As Directed
Resuscitation Status: Full Code
07/21/25 16:07
CR Lumbar Spine 2 Or 3 Views Routine
Comment:
Reason For Exam: sciatica pain
Abnormal Lab Results
07/21/25
14:17
RBC 2.46 L 10^6/uL
(4.70-6.10)
Hgb 7.3 L g/dL
(13.0-18.0)
Hct 22.0 L %
(39.0-52.0)
RDW 14.6 H %
(11.5-14.5)
Monocytes (Manual) 19 H %
(2-9)
Glucose 111 H mg/dl
(70-99)
Calcium 7.9 L mg/dl
(8.4-10.2)
Albumin 3.4 L g/dl
(3.5-5.0)
07/21/25 14:17
07/21/25 14:17
Vital Signs
Initial and Last Documented VS:
Initial Vital Signs
Temp Pulse Resp BP Pulse Ox
98.7 F 102 20 143/70 99
07/21/25 13:34 07/21/25 13:34 07/21/25 13:34 07/21/25 13:34 07/21/25 13:34
Last Documented Vital Signs
Temp Pulse Resp BP Pulse Ox
98.7 F 93 19 110/60 98
07/21/25 13:34 07/21/25 17:30 07/21/25 17:30 07/21/25 17:00 07/21/25 17:15
Social Sciences Research Scientist consulted with Physician
Social Sciences Research Scientist consulted with physician?: Yes
Name of Physician Consulted: Shannon
<Finesse Ortega, DO - Last Filed: 07/21/25 15:51>
Orders/Labs/Results
Orders:
Orders
07/21/25 Breakfast
Clear Liquid
07/21/25 14:17
Type And Crossmatch [Type+Screen] Urgent
Complete Blood Count/With Diff Urgent
Comprehensive Metabolic Panel Urgent
Manual Differential Urgent
PTT Urgent
Prothrombin Time Urgent
07/21/25 15:34
Pantoprazole 80 mg/100 ml Nss [Protonix] 80 mg in 100 ml IV NOW
Pantoprazole [Protonix IV] 80 mg IV NOW STA
07/21/25 15:35
IV Insert/Care/Rem.- Treatment PRN
07/21/25 15:42
GASTROINTESTINAL CONSULT Urgent
Consulting Provider: Dora Clark
Was physician already notified: Yes
Reason for consult: GI bleed, dark heme + stools.
07/21/25 16:04
Admit/Transfer Patient As Directed
Co-Sign Provider:
Level of Care: Inpatient admission
Assign to:: Medical/Surgical
Physician / Group: chavez
Diagnosis: GI bleed
Reason for Hospitalization: GI bleed
Expected length of stay greater than two midnights?: Yes
ELOS- Estimated Length of Stay in days: 3
I certify the patient meets the requirements for IP care: Yes
PRN Pain Medication Management As Directed
May give lesser potent ordered pain med per pt: Yes
preference::
Protocol:: Medication orders for pain may be administered in a
manner that supports deferring to patient preference
when the pt is:
- Requesting an ordered lesser potent pain medication.
Least to most potent pain medications are defined
as: acetaminophen < NSAID < tramadol < opioids
(morphine, oxycodone, hydromorphone).
- Requesting a lesser dose of the same medication IF
ORDERED.
- Requesting a less intrusive route of administration
if both routes are prescribed by the provider (PO <
IV).
07/21/25 16:05
Code Status As Directed
Resuscitation Status: Full Code
07/21/25 16:07
CR Lumbar Spine 2 Or 3 Views Routine
Comment:
Reason For Exam: sciatica pain
Abnormal Lab Results
07/21/25
14:17
RBC 2.46 L 10^6/uL
(4.70-6.10)
Hgb 7.3 L g/dL
(13.0-18.0)
Hct 22.0 L %
(39.0-52.0)
RDW 14.6 H %
(11.5-14.5)
Monocytes (Manual) 19 H %
(2-9)
Glucose 111 H mg/dl
(70-99)
Calcium 7.9 L mg/dl
(8.4-10.2)
Albumin 3.4 L g/dl
(3.5-5.0)
07/21/25 14:17
07/21/25 14:17
Vital Signs
Initial and Last Documented VS:
Initial Vital Signs
Temp Pulse Resp BP Pulse Ox
98.7 F 102 20 143/70 99
07/21/25 13:34 07/21/25 13:34 07/21/25 13:34 07/21/25 13:34 07/21/25 13:34
Last Documented Vital Signs
Temp Pulse Resp BP Pulse Ox
98.7 F 93 19 110/60 98
07/21/25 13:34 07/21/25 17:30 07/21/25 17:30 07/21/25 17:00 07/21/25 17:15
<Rekha Oscar NP - Last Filed: 07/21/25 18:02>
MDM/Problems Addressed
Differential Diagnosis Includes:
Peptic ulcer disease, GI bleed
MDM/Problems Addressed:
85-year-old male was sent here by PCP after outpatient labs showed a low hemoglobin. He went to his PCP 07/15days ago for neck pain and low-grade fevers. Had outpatient lab work done 2 days ago with hemoglobin of 7.6, had repeat hemoglobin done
yesterday and it was 7.2 so he was called by his PCP and told to come in here. He denies F/C, denies N/V/C/D however at bedside states she thinks his stools are darker than usual
He denies SOB, CP or abdominal pain. He denies feeling dizzy or lightheaded.
Patient has a history of TIA symptoms 06/17 and was admitted here and discharged on 06/21 after normal MRI and CAT scan. He went to rehab for 2 weeks because he has been having gradually increasing leg weakness to the point where he is now
wheelchair-bound. states that ever since that discharge date he has had headaches, neck pains and that is why he went to see his PCP.
Throughout the entire month of May, he was taking ibuprofen 800 mg 4 times daily for his pain
After he saw his PCP on 07/15 he stopped taking so much ibuprofen but does admit to taking 600 mg 3 times daily since 07/15.
CBC: Hemoglobin 7.3
CMP: No clinically significant abnormality
4:45 PM:
Hospitalist notified of admission
GI consult in
Blood consent signed in scanned into chart.\\
Dr. Ortega in Agrees with plan
<Rekha Oscar, IT PROGRAM ENGAGEMENT DIRECTOR - Last Filed: 07/21/25 18:02>
*Pulse Oximetry
SaO2: 98
Oxygen Mode of Delivery: Room air
Patient hypoxic: no
<Finesse Ortega, DO - Last Filed: 07/21/25 15:51>
*Critical Care Note
Total Time (30-74mins, 75-104mins- exclusive of procedures): 30
comment:
Critical care statement: A total of 30 minutes of critical care time was provided for this patient. This includes management of unstable vital signs, evaluation of the patient at bedside, reviewing the patient's pertinent medical records, discussion
with consultants, review of old EKGs and review of pertinent medical records. This time with separate from time utilized to perform the aforementioned documented procedures
ED Attending Note
<Rekha Oscar IT PROGRAM ENGAGEMENT DIRECTOR - Last Filed: 07/21/25 18:02>
-
Portions of this chart may have been created with voice recognition software.� Occasional wrong word or��sound alike� substitutions may have occurred due to the inherent limitations of voice recognition software.
<Finesse Ortega, - Last Filed: 07/21/25 15:51>
ED Attending Note
Patient seen and examined by attending physician: Yes
ED Attending Note:
I have reviewed and agree with history and treatment plan by Danyelle Oscar. My exam revealed
85-year-old male in no acute distress, appears pale. Blood pressure stable. Patient with guaiac positive dark stool. Suspicious for upper GI bleed. Protonix and 1 unit packed red blood cells ordered. Admit to hospitalist
Discharge Plan
Departure
Patient Disposition: Admit
Date of Disposition: 07/21/25
Time of Disposition: 15:39
Admit to: Med/Surg
Presentation/result/management discussed w/ accepting MD/DO: Hospitalist
Condition: Fair
Discharge Problem:
GI (gastrointestinal bleed), Acute blood loss anemia
Interventions
Interventions:
*Risk Screen - Suicide Last Done: 07/21/25 14:15
*General Assessment Last Done: 07/21/25 13:29
*Neglect/Abuse Screening Last Done: 07/21/25 14:15
*ED COVID-19 Vaccine History Last Done: 07/21/25 14:15
*ED Influenza Vaccine History Last Done: 07/21/25 14:15
--- NOTE | 2025-07-21 15:44 | HPS.HSE ---
Family Physician
-
Family Physician: Raj Brownlee MD
Chief Complaint
-
abnormal blood work
History of Present Illness
85-year-old with past medical history for Guillain-Cobos� who presented to us with outpatient lab with low hemoglobin as outpatient. patient was discharged from here with CVA to Rehab on 06/21/2025. while he was there in the rehab, he was not feeling
well. he was always nauseous, poor appetite which progressively was getting worse even at home. for last week noted dark stool. he was complaining of chills. he had an outpatient blood work with low hemoglobin. he was taking ibuprofen as need
until a month ago for sciatica pain. denied BEGUM, dizzy or syncope.denied fever, chest pain, sob. denied abdominal pain, vomiting, diarrhea. denied dysuria or hematuria.
upon arrival noted low hgb with dark heme positive stool. initiated on IV PPI. admitting for further management.
Medical History
Past Medical History
Past Medical History: Reports Other
Additional Past Medical History:
Polyneuropathy, Guillain-Cobos� syndrome, hyperlipidemia, TIA, neurogenic bladder, hypertension, BPH, colon cancer, cataracts, anxiety, hyperlipidemia, insomnia
Past Surgical History: Reports Other
Additional Past Surgical History:
Cholectomy, pyloric stenosis repair, hernia repair, suprapubic tube placement, retinal reattachment, colectomy, cataract extraction, pyloric stenosis surgery as an
Social History
Tobacco: Non-smoker
Alcohol: None
Drug: None
Personal:
Living: With Family
Family History
Family History: Not pertinent
Allergies / Home Medications
Allergies reflects when Allergies were last updated in [facility].
Home Medications with original date entered in [facility]
Allergy/Medication List:
Allergies
Allergy/AdvReac Type Severity Reaction Status Date / Time
cyclobenzaprine (From Allergy Unknown Verified 07/21/25 14:20
Flexeril)
iodine Allergy 'Deadly' Verified 07/21/25 14:20
Home Medications
acetaminophen 500 mg tablet 1,000 mg PO Q6HPRN PRN mild pain 06/17/25
melatonin 10 mg tablet 10 mg PO HSPRN PRN insomnia 06/17/25
aspirin 81 mg chewable tablet 81 mg PO DAILY 21 days #30 tabs 06/18/25
cyanocobalamin (vitamin B-12) 1,000 mcg tablet 1,000 mcg PO DAILY 07/21/25
docusate sodium 100 mg capsule (Colace) 100 mg PO BIDPRN PRN constipation 07/21/25
folic acid 1 mg tablet 1 mg PO DAILY 07/21/25
ibuprofen 200 mg tablet (Advil) 400 mg PO DAILYPRN PRN mild pain 07/21/25
polyethylene glycol 3350 17 gram oral powder packet (Miralax) 17 g PO DAILYPRN PRN constipation 07/21/25
Review of Systems
-
Constitutional: Reports Weight Loss, Fatigue and Chills
EENT: Reports No Symptoms
Respiratory: Reports No Symptoms
Cardiac: Reports No Symptoms
Abdomen/GI: Reports Nausea
: Reports No Symptoms
Musculoskeletal: Reports No Symptoms
Skin: Reports No Symptoms
Neurological: Reports No Symptoms
Endocrine: Reports No Symptoms
Hematologic/Lymphatic: Reports No Symptoms
Psych: Reports No Symptoms
Physical Exam
Vital Signs
Vital Signs
Temp Pulse Resp BP Pulse Ox
98.7 F 86 21 123/71 98
07/21/25 13:34 07/21/25 15:15 07/21/25 15:15 07/21/25 15:00 07/21/25 15:24
Physical Exam
General: Well Developed, Well Nourished and No Apparent Distress
HEENT: NormoCephalic, Moist mucous membranes and Atraumatic
Respiratory: Clear
Cardiac: S1/S2 and Regular Rhythm; No Murmur or Rub
GI: Soft, Non Tender, Non Distended and Normal Bowel Sounds; No Organomegaly
Rectal: Deferred by Provider
Musculoskeletal: No Clubbing, No Cyanosis and No Edema
Skin: No Rash
Neuro: Nonfocal/grossly intact
Laboratory Results
-
07/21/25 14:17
07/21/25 14:17
Laboratory Results
PT 14.5 Sec (11.4-14.6) 07/21/25 14:17
INR 1.10 07/21/25 14:17
APTT 33.0 Sec (23.4-35.0) 07/21/25 14:17
Total Bilirubin 0.5 mg/dl (0.2-1.3) 07/21/25 14:17
AST 27 U/L (17-59) 07/21/25 14:17
ALT 30 U/L (0-50) 07/21/25 14:17
Alkaline Phosphatase 126 U/L (38-126) 07/21/25 14:17
Data Reviewed
-
Lab Data: Labs Reviewed by me
Impression/Plan
-
# Acute blood loss anemia secondary to acute GI bleed
-Dark heme positive stool
- Hemoglobin 7.3
- Clear liquid diet, NPO after MN
- IV PPI
-Trend hemoglobin, transfuse if hemoglobin less than 7
- GI consulted
#sciatica pain
-obtain x ray of lumbar
#TIA/CVA
-asa
#HFpEF
#Guillain-[place] (1971)
#colon cancer (surgery and chemo)
#GERD
#anxiety
DVT Prophylaxis: SCD
Full Code
--- NOTE | 2025-07-21 15:57 | W.PN.UPDATE ---
Update Note
Progress Note Update
Seen and examined by me independently in collaboration with the nurse practitioner Wilbur.
Past medical history/social history/medication/allergies reviewed.
Lab data and imaging data reviewed.
Patient presents with black stool.
He is 85-year-old gentleman with history of hypertension, hyperlipidemia, heart failure with preserved EF, GERD and Ojeda's syndrome in 1970, had recent TIA with expressive aphasia and it was put on aspirin and Plavix and was discharged to rehab
which she has done with and went home. At home they started to notice black stools. He also had constant nausea for the last week since coming home apparently. No abdominal pain. No GERD symptoms.
He was also taking apparently ibuprofen for sciatica pain. Intermittent sciatica up to both legs. He has lower back pain. There is no aphasia issues currently.
No prior history of GI bleed. Had hemorrhoids in the past. Had colonoscopy 8 to 9 years ago apparently.
No peptic ulcer disease.
He denies any dizziness. Denies any chest pain or shortness of breath.
Sinus tachycardia noted but blood pressure stable. Chest is clear. Heart sinus and persistent heart regular. Abdomen soft without tenderness. No lower extremity edema. Neurologically grossly focal.
Melena-suspect lower GI bleed-stable hemodynamically-not on anticoagulants other than aspirin. No acute coronary syndrome symptoms.
Admit to hospital. Keep on clears. N.p.o. past midnight. Consult GI. Start on Protonix PPI drip. Follow H&H closely. In view of recent TIA continue with aspirin. He is done with DAPT with Plavix.
Full code.
Discussed with and son at bedside.
[2025-07-21] MEDS: PROTONIX IV 80 MG IV (15:59)
[2025-07-21] MEDS: PROTONIX 100 IV (15:59)
--- NOTE | 2025-07-21 16:26 | EDCM ---
CM reviewed chart and met with pt and family bedside in ED. Lives with his in second floor apartment with elevator access.
provides assistance with ADLS and personal care, she does all the cooking and cleaning. Pt had been walking with a walker but most recently has been wheelchair bound.
Confirms prescription coverage from , needs to use [facility].
Current with [facility] for SN,PT and OT. notified them pt is in hospital.
HX [facility] in early June
PCP: Raj Brownlee
Pharmacy: [facility] [address]
Anticipate home with ZANE Anderson, CM will continue to follow for all discharge planning needs.
--- NOTE | 2025-07-21 17:25 | CON.GI ---
Addendum entered and electronically signed by Dora Clark MD 07/21/25 19:06:
The patient was seen and examined by me independently in collaboration with the nurse practitioner.
Past medical history/social history/medications/allergies/family history reviewed.
Lab data and imaging data reviewed.
85 yo M pmh colon cancer s/p resection recent admission with TIA/CVA discharged 06/21 on ASA/plavix (stopped 07/09) with dark stools since that discharge (Hb 11.1 on discharge), PCP checked Hb and was found to have Hb of 7s and recommended to go in
hospital. �Per he did have ibuprofen 3 pills twice only yesterday but only time he had NSAIDs.� He previously would take NSAIDs regularly before the TIA/CVA admission for sciatica.� + nausea, one episode of vomiting last week, no abd pain.� No
CP/SOB/dizziness.
BUN 13.
Plan EGD tomorrow - We discussed the risk, benefits, and alternatives to upper endoscopy.� The risks include bleeding, infection, perforation, missed lesion, and cardiopulmonary complications from anesthesia.� The importance of bringing an escort
and remaining NPO after midnight was discussed.
D/w and patient. They had concerns about his age about undergoing upper endoscopy. We also discussed the option of watchful waiting. Per , last bowel movement had some brown it mixed with black. It is also possible the bleeding stopped
once the Plavix is stopped but there is some sort of underlying etiology. Differential includes peptic ulcer disease, malignancy, AVM. On further discussion, they did decide they would like to proceed with the upper endoscopy. If the upper
endoscopy is negative, plan for colonoscopy on Thursday if he is agreeable.
In the interim, trend Hb goal >7, changed PPI gtt to IV BID.
Original Note:
Consultation
-
Date/Time Consultation Requested: 07/21/251541
Date/Time Consultation Performed: 07/21/25 1700
Requesting Provider: LARRY Fernandez
Performing Provider: Dr. Clark/LARRY Gil
Reason for Consultation: symptomatic/OB pos anemia
Medical History
Chief Complaint / HPI
Chief Complaint: abnormal labs
History of Present Illness:
85-year-old male with past medical history of Lesly Cobos�, colon cancer status post resection, hyperlipidemia, neurogenic bladder, hypertension, cataracts, anxiety, hyperlipidemia, insomnia, recent TIA on 06/17/2025 presents to the emergency room
with abnormal lab work. Asked to evaluate for OB positive dark stool and anemia. The patient previously was on ibuprofen 800 mg twice daily for approximately 2 months over the summer. He discontinued this approximately 2-1/2 months ago. He
presented to the emergency room on 06/17/2025 and was diagnosed with a TIA. He was discharged on 06/21/2025 with aspirin 81 mg and Plavix 75 mg to continue for 3 weeks. He was discharged to rehab and discharged to home on 07/06/2025. He has no
residual effects that he can describe. He did come home with a 'cold'. And had low-grade fever afterwards up to 100.1. Had chills intermittently and did not feel well with a poor appetite. This all resolved approximately 1 week ago. His Plavix
was discontinued after 21 days and he has been off of this for at least 1 week. He continues on aspirin 81 mg daily. He did use Advil 600 mg twice yesterday for back pain. It was noted that he had dark stools since 07/06/2025. He denies any
current fevers, chills, nausea, vomiting, melena, hematochezia, dysphagia or dyne aphasia. No early satiety or unintended weight loss. His last colonoscopy was [address] Mcmullen at [place]. He was told that he he did not need any
further for screening purposes. He quit smoking over 50 years ago. He does not drink any alcohol. When he was here in early June his hemoglobin was 11.1. Is currently 7.3, his family states that in March his hemoglobin was 10 and he was told
to take a B12 supplement. Currently WBC 5.0, hemoglobin 7.3, hematocrit 22.0, platelets 374, MCV 89.4, MCH 29.7, PT 14.5, and INR 1.1, sodium 139, potassium 3.8, BUN 13, creatinine 0.9, glucose 111, total bilirubin 0.5, AST 27, ALT 30, alk phos
126, albumin 3.4
Past Medical History
Past Medical History: Other (Ángel Cobos�, colon cancer, hyperlipidemia, neurogenic bladder, hypertension, cataracts, anxiety, hyperlipidemia, insomnia, TIA, pyloric stenosis status post repair as child)
Past Surgical History: Other (Colon resection, pyloric stenosis repair, hernia repair, supra tube placement, retinal detachment, )
Social History
Tobacco: Former Smoker (Quit 50 years ago)
Alcohol: None
Drug: None
Personal:
Living: With Family
Employment: Retired
Family History
Family History: Other (No family history of gastrointestinal malignancy or IBD)
Allergies / Home Medications
Allergy/AdvReac Type Severity Reaction Status Date / Time
cyclobenzaprine (From Allergy Unknown Verified 07/21/25 14:20
Flexeril)
iodine Allergy 'Deadly' Verified 07/21/25 14:20
�Medication �Instructions �Recorded
acetaminophen 500 mg tablet 1,000 mg PO Q6HPRN PRN mild pain 06/17/25
melatonin 10 mg tablet 10 mg PO HSPRN PRN insomnia 06/17/25
aspirin 81 mg chewable tablet 81 mg PO DAILY 21 days #30 tabs 06/18/25
cyanocobalamin (vitamin B-12) 1,000 mcg PO DAILY 07/21/25
1,000 mcg tablet
docusate sodium 100 mg capsule 100 mg PO BIDPRN PRN constipation 07/21/25
(Colace)
folic acid 1 mg tablet 1 mg PO DAILY 07/21/25
ibuprofen 200 mg tablet (Advil) 400 mg PO DAILYPRN PRN mild pain 07/21/25
polyethylene glycol 3350 17 gram 17 g PO DAILYPRN PRN constipation 07/21/25
oral powder packet (Miralax)
Review of Systems
-
All other systems: A 12 pt ROS was Negative except as stated above in HPI
Vital Signs
Temp Pulse Resp BP Pulse Ox
98.7 F 86 21 123/71 98
07/21/25 13:34 07/21/25 15:15 07/21/25 15:15 07/21/25 15:00 07/21/25 15:24
Physical Exam
Exam
General: No Apparent Distress
HEENT: Anicteric
Respiratory: Clear
Cardiac: Regular Rhythm
GI: Soft, Non Tender and Normal Bowel Sounds
Rectal: Hem Positive (Per ER dark OB positive stool)
Skin: Warm and Dry
Neuro: AO x 3
Psych: Calm
Results
WBC 5.0 10^3/uL (4.8-10.8) 07/21/25 14:17
Hgb 7.3 g/dL (13.0-18.0) L 07/21/25 14:17
Hct 22.0 % (39.0-52.0) L 07/21/25 14:17
MCV 89.4 fL (80.0-94.0) 07/21/25 14:17
Plt Count 374 10^3/uL (130-400) 07/21/25 14:17
PT 14.5 Sec (11.4-14.6) 07/21/25 14:17
INR 1.10 07/21/25 14:17
APTT 33.0 Sec (23.4-35.0) 07/21/25 14:17
Sodium 139 mmol/L (135-145) 07/21/25 14:17
Potassium 3.8 mmol/L (3.5-5.1) 07/21/25 14:17
Chloride 104 mmol/L (98-107) 07/21/25 14:17
Carbon Dioxide 28 mmol/L (22-30) 07/21/25 14:17
BUN 13 mg/dl (9-20) 07/21/25 14:17
Creatinine 0.9 mg/dL (0.7-1.3) 07/21/25 14:17
Calcium 7.9 mg/dl (8.4-10.2) L 07/21/25 14:17
Total Bilirubin 0.5 mg/dl (0.2-1.3) 07/21/25 14:17
AST 27 U/L (17-59) 07/21/25 14:17
ALT 30 U/L (0-50) 07/21/25 14:17
Alkaline Phosphatase 126 U/L (38-126) 07/21/25 14:17
Diagnostic Image Results:
Prior GI Procedures:
EGD: Never
Colonoscopy: '5 yrs ago, Dr. Kemi Olson' 'normal'
COLO 08/20/2015 ([place]) - Lipomatous ileocecal valve.
- One 4 mm polyp in the mid ascending colon. Resected
and retrieved.
- One 4 mm polyp at 20 cm proximal to the anus. Resected
and retrieved.
- Patent end-to-side colo-colonic anastomosis.
- Diverticulosis in the sigmoid colon, in the descending
colon, in the transverse colon and in the ascending
colon.
- Non-bleeding external internal hemorrhoids.
- Enlarged prostate found on digital rectal exam.
Assessment / Plan
-
85-year-old male with past medical history of Lesly Cobos�, colon cancer status post resection, hyperlipidemia, neurogenic bladder, hypertension, cataracts, anxiety, hyperlipidemia, insomnia, recent TIA on 06/17/2025 presents to the emergency room
with abnormal lab work. Asked to evaluate for OB positive dark stool and anemia. Recently came off of Plavix 1 week ago. Currently on aspirin 81 mg. Prior history of significant ibuprofen use 800 mg twice daily approximately 2 months ago. Recent
dark stools since 07/06/2025. Currently dark OB positive stool. Hemoglobin 7.3 down from 11.1 on 06/21/2025.
Impression:
OB positive anemia
Recent TIA 06/17/25, Off Plavix x 1 week (completed 21 days) on ASA 81 mg
Hx Colon Ca s/p CTX and colon resection
Plan:
-Clear liquid diet
-On Pantoprazole gtt
-NPO after midnight
-Plan for EGD tomorrow, if negative will need colonoscopy.
-Trend Hgb
-check iron, B12, folate
-Further recommendations to be forthcoming
-
-
Thank you for consultation and allowing me to participate in the patient's care. Please call the environmental health safety engineer GI physician during the after hours with any questions or concerns.
[2025-07-21 18:30] LABS: Iron 37 ug/dl (49-181)
[2025-07-21 18:39] LABS: Total Iron Binding Capacity 210 ug/dl (261-462)
[2025-07-21 19:04] LABS: Ferritin 255.0 ng/ml (17.9-464.0)
[2025-07-21 19:36] LABS: Folate 9.4 ng/ml (2.76-20); Vitamin B12 826 pg/ml (239-931)
[2025-07-21] MEDS: NSS (PRESERVATIVE FREE) 10 ML IV (20:09)
[2025-07-21] MEDS: PROTONIX IV 40 MG IV (20:10)
[2025-07-21 20:17] LABS: Hematocrit 19.2 % (39.0-52.0); Hemoglobin 6.4 g/dL (13.0-18.0)
[2025-07-22] VITALS (7 sets, daily range): BP systolic 95–171; BP diastolic 54–83; PULSE 72–81
[2025-07-22 01:48] LABS: Hematocrit 21.7 % (39.0-52.0); Hemoglobin 7.3 g/dL (13.0-18.0)
--- NOTE | 2025-07-22 01:52 | W.PN.UPDATE ---
Update Note
Progress Note Update
Hgb 6.4 from 7.3. Rx 1U PRBC.
[2025-07-22 07:37] LABS: Hematocrit 21.5 % (39.0-52.0); Hemoglobin 7.0 g/dL (13.0-18.0); Mean Corp Hgb Conc. 32.6 g/dL (33.0-37.0); Mean Corpuscular Volume 90.0 fL (80.0-94.0); Platelet Count 303 10^3/uL (130-400); Red Cell Dist. Width 14.8 % (11.5-14.5)
[2025-07-22 07:56] LABS: Blood Urea Nitrogen 11 mg/dl (9-20); Calcium 7.4 mg/dl (8.4-10.2); Carbon Dioxide 27 mmol/L (22-30); Chloride 108 mmol/L (98-107); Estimated Creatinine Clearance 57 ml/min; Glucose 91 mg/dl (70-99); Potassium 4.0 mmol/L (3.5-5.1); Sodium 140 mmol/L (135-145); eGFR > 60.00
[2025-07-22] MEDS: VITAMIN B-12 1000 MCG PO (08:41)
[2025-07-22] MEDS: LOW STRENGTH ASPIRIN 81 MG PO (08:42)
[2025-07-22] MEDS: FOLVITE 1 MG PO (08:43)
[2025-07-22] MEDS: PROTONIX IV 40 MG IV ×2 (08:45→19:56)
[2025-07-22] MEDS: NSS (PRESERVATIVE FREE) 10 ML IV ×2 (08:45→19:55)
--- NOTE | 2025-07-22 10:57 | W.PN.HOSP.TC ---
Today's Communication/Plan
-
Follow H&H.
EGD today.
Continue PPI.
Assessment / Plan
Assessment / Plan
# Acute blood loss anemia secondary to acute GI bleed
-Dark heme positive stool
-Hemodynamically stable
- Hemoglobin 7.3 which dropped down to 6.4-received 1 unit of blood last night. Hemoglobin 7.0. Continue to monitor. Aim to keep hemoglobin 7 or more
-Continue with IV PPI
- GI consulted-plan for EGD today noted.
# Low back pain with intermittent radiculopathy
- Lumbar spine x-ray shows DJD but no bony abnormalities. Continue with symptomatic treatment.
# Recent TIA/CVA
-Continue with aspirin. No aphasia evident now.
#HFpEF-clinically compensated. Not on any diuretics at home. Echo last month showed EF of 60% with no significant valvular abnormality. No known history of CAD
#Guillain-Celina (1971)
#colon cancer (surgery and chemo)
#GERD
#anxiety
DVT Prophylaxis: SCD
Full Code
Proceed with EGD as planned.
Anticipated Discharge: > 48 hours
Subjective/Interval History
-
Date of Service: July 22, 2025
He is alert and oriented. Voicing no specific complaints. Denies any nausea or abdominal pain. No shortness of breath or chest pain.
Objective Data
-
Labs:
Laboratory Results
07/22/25 07/22/25
01:39 06:26
WBC 3.5 L
Hgb 7.3 L 7.0 L
Hct 21.7 L 21.5 L
Plt Count 303
Sodium 140
Potassium 4.0
Chloride 108 H
Carbon Dioxide 27
BUN 11
Creatinine 1.0
Glucose 91
Calcium 7.4 L
Vital Signs:
Vital Signs
Temp Pulse Resp BP Pulse Ox
98.1 F 71 16 134/63 97
07/22/25 07:50 07/22/25 07:50 07/22/25 07:50 07/22/25 07:50 07/22/25 07:50
I&O
07/21/25 07/22/25 07/23/25
06:59 06:59 06:59
Intake Total 250 / 250
Output Total 150 / 150
Balance 100 / 100
Physical Exam
-
General: Comfortable
Respiratory: Clear to Auscultation and Non Labored Respirations; Negative Accessory Resp Muscle Use
Cardiac: Regular Rhythm and S1/S2; Negative Tachycardic
GI: Soft and Nontender
Neuro: AO x 3
Psych: Calm
Data Reviewed
-
Labs: Labs Reviewed by me
--- NOTE | 2025-07-22 11:08 | CM ---
Chart reviewed and case manager specialist met with patient and spouse at bedside, plan is to home with spouse when stable and [facility] visiting nurses.
[facility]
[phone]
[2025-07-22] MEDS: OMNIPAQUE 50 ML PO (12:22)
[2025-07-22] MEDS: BENADRYL 50 MG IV (13:33)
[2025-07-22] MEDS: SOLU-CORTEF 200 MG IV (13:34)
[2025-07-22 16:31] LABS: Hematocrit 24.6 % (39.0-52.0); Hemoglobin 8.2 g/dL (13.0-18.0); Mean Corp Hgb Conc. 33.3 g/dL (33.0-37.0); Mean Corpuscular Volume 90.4 fL (80.0-94.0); Platelet Count 327 10^3/uL (130-400); Red Cell Dist. Width 14.8 % (11.5-14.5)
[2025-07-22] MEDS: MELATONIN 10 MG PO (23:44)
[2025-07-23 06:08] LABS: Hematocrit 23.3 % (39.0-52.0); Hemoglobin 7.8 g/dL (13.0-18.0); Mean Corp Hgb Conc. 33.5 g/dL (33.0-37.0); Mean Corpuscular Volume 91.0 fL (80.0-94.0); Platelet Count 326 10^3/uL (130-400); Red Cell Dist. Width 14.7 % (11.5-14.5)
[2025-07-23 06:31] LABS: Blood Urea Nitrogen 15 mg/dl (9-20); Calcium 7.6 mg/dl (8.4-10.2); Carbon Dioxide 26 mmol/L (22-30); Chloride 106 mmol/L (98-107); Estimated Creatinine Clearance 57 ml/min; Glucose 117 mg/dl (70-99); Potassium 3.9 mmol/L (3.5-5.1); Sodium 138 mmol/L (135-145); eGFR > 60.00
[2025-07-23 07:50] VITALS: BP 142/79
[2025-07-23] MEDS: FOLVITE 1 MG PO (08:33)
[2025-07-23] MEDS: VITAMIN B-12 1000 MCG PO (08:33)
[2025-07-23] MEDS: LOW STRENGTH ASPIRIN 81 MG PO (08:33)
[2025-07-23] MEDS: NSS (PRESERVATIVE FREE) 10 ML IV (08:34)
[2025-07-23] MEDS: PROTONIX IV 40 MG IV (08:34)
--- NOTE | 2025-07-23 09:58 | W.PN.GI.CBS2 ---
Addendum entered and electronically signed by Dora Clark MD 07/23/25 10:06:
NO NSAIDS except ASA 81
Original Note:
Today's Communication / Plan
-
recheck CBC if stable outpatient follow up
Assessment / Plan
-
85 yo M pmh colon cancer s/p resection recent admission with TIA/CVA discharged 06/21 on ASA/plavix (stopped 07/09) with dark stools since that discharge (Hb 11.1 on discharge), PCP checked Hb and was found to have Hb of 7s and recommended to go in
hospital. �Per he did have ibuprofen 3 pills twice only yesterday but only time he had NSAIDs.� He previously would take NSAIDs regularly before the TIA/CVA admission for sciatica.� + nausea, one episode of vomiting last week, no abd pain.� No
CP/SOB/dizziness.
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 Esophageal ulcer as well. CT then performed again stated DU vs duodenal diverticulum; had an additional duodenal diverticulum.
Slight drop in Hb recheck at noon if stable ok for discharge d/w hospitalist.
Plan PPI bid x 8 weeks then daily.
Path pending (biopsied for HP minimal NSAID use).
Will d/w patient/ about repeat egd in 8 weeks may need XP scope to complete if duodenal diverticulum the narrowing may not improve. I sent message to office to set up follow up.
Repeat Hb in 1 week.
If anemia persist may need cscope.
Continue ASA. Plavix previously stopped no longer needed.
On CT incidental fatty liver (at 85 would not pursue further eval) and lung nodule - I recommended to pt to follow up with PCP.
Subjective
Subjective
Date of Service: July 23, 2025
Patient feels well no complaints
Objective
Data Reviewed
Laboratory Data:
Laboratory Results
07/23/25 16:00
07/23/25 05:46
Laboratory Results
PT 14.5 Sec (11.4-14.6) 07/21/25 14:17
INR 1.10 07/21/25 14:17
APTT 33.0 Sec (23.4-35.0) 07/21/25 14:17
Total Bilirubin 0.5 mg/dl (0.2-1.3) 07/21/25 14:17
AST 27 U/L (17-59) 07/21/25 14:17
ALT 30 U/L (0-50) 07/21/25 14:17
Alkaline Phosphatase 126 U/L (38-126) 07/21/25 14:17
Vital Signs and I&O:
Vital Signs
Temp Pulse Resp BP Pulse Ox
98.2 F 77 16 142/79 100
07/23/25 07:50 07/23/25 07:50 07/22/25 23:00 07/23/25 07:50 07/23/25 07:50
I&O
07/22/25 07/23/25 07/24/25
06:59 06:59 06:59
Intake Total 250 / 250 630 / 630 125 / 125
Output Total 150 / 150 100 / 100 50 / 50
Balance 100 / 100 530 / 530 75 / 75
Physical Exam
Physical Exam
GI: Non Distended and Non Tender
[2025-07-23] MEDS: MIRALAX 17 GRAMS PO (11:14)
[2025-07-23 11:35] VITALS: BP 138/58
[2025-07-23 11:59] LABS: Hemoglobin 7.9 g/dL (13.0-18.0)
--- NOTE | 2025-07-23 13:16 | W.DCSUMMARY ---
Discharge Summary
Discharge Data
Date of Admission: 07/21/25
Date of Discharge: 07/23/25
-
Pending Results: No
Hospital Course
Primary diagnosis:
Acute GI bleed
Acute blood loss anemia status post 1 unit of blood transfusion
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
Lung nodule in the lingula
Secondary diagnosis:
History of TIA/CVA
Heart failure with preserved EF
History of Guillain-Cobos� syndrome
Hospital course:
Patient presented with black stool which are heme positive. He was also anemic hemoglobin 6.4. He recently had a TIA/CVA for which he was on dual antiplatelet agents. He finished with Plavix. He also occasionally took ibuprofen for low back
pain. Had 1 unit of blood transfusion and had an EGD-showed large to DU versus duodenal diverticulum unable to pass into second part of duodenum. Esophageal ulcer as well noted. CT of the abdomen pelvis again stated DU versus duodenal
diverticulum and had an additional duodenal diverticulum. GI recommendation is PPI twice daily for 8 weeks and then daily. Repeat EGD in 8 weeks. Repeat hemoglobin in 1 week. If anemia persists he may need colonoscopy. Continue with aspirin for
now.
A lung nodule in the lingula was noted. Also noted before as well. Small nodular in nature at 1.2 cm. Patient says he was told about the nodule before. Advised to follow-up with PCP.
Today patient without any GI symptoms. Tolerating diet. No nausea vomiting. No abdominal pain. Repeat hemoglobin this afternoon is 7.9 and stable. Abdomen soft. Iron studies does not suggest iron deficiency anemia but with current heme
positive stools or blood loss advised him to take an iron pill for a month.
He was seen by PT today and cleared for home health.
Consultants on board:
[facility]
Discharge Plan
-
Patient Disposition: Home (Routine Discharge)
Discharge Diagnosis/Procedures: Melena sec to GI bleed; anemia sec to GI blood loss; DU vs duodenal diveriticulum
Diet: Low Cholesterol
Activity: As tolerated
Driving Restrictions: As prior to admission
Blood Work: CBC blood work in one week - arrange through your PCP
Others Tests: Please follow up with PCP regarding lung nodule
Other Services: VN
Specialty Instructions: Weigh Daily- Call MD for wt gain/loss 3 lbs overnight/5 lbs in 1 week
Referrals:
Raj Brownlee MD [Family Provider, Internal Medicine] - in less than 1 week
Dora Clark MD [Active, Gastroenterology] - in two to four weeks
Prescriptions:
New
pantoprazole [Protonix] 40 mg tablet,delayed release (DR/EC)
40 mg PO BID Qty: 60 0RF
ferrous sulfate 325 mg (65 mg iron) tablet
325 mg PO DAILY Qty: 30 0RF
Continued
acetaminophen 500 mg Tablet
1,000 mg PO Q6HPRN PRN (Reason: mild pain)
melatonin 10 mg Tablet
10 mg PO HSPRN PRN (Reason: insomnia)
aspirin 81 mg Tablet,Chewable
81 mg PO DAILY 21 Days Qty: 30 0RF
polyethylene glycol 3350 [Miralax] 17 gram Powder In Packet
17 g PO DAILYPRN PRN (Reason: constipation)
cyanocobalamin (vitamin B-12) 1,000 mcg Tablet
1,000 mcg PO DAILY
docusate sodium [Colace] 100 mg Capsule
100 mg PO BIDPRN PRN (Reason: constipation)
folic acid 1 mg Tablet
1 mg PO DAILY
Discontinued
ibuprofen [Advil] 200 mg Tablet
400 mg PO DAILYPRN PRN (Reason: mild pain)
Discharge Orders:
Discharge Patient (As Directed); Ordered 07/23/25
Ordered By: Rashad Eduardo
Discharge Date and Time
Print Language: SLOVENIAN
[2025-07-23 13:21] VITALS: BP 129/65
--- NOTE | 2025-07-23 13:38 | CM ---
Addendum entered by Ladi Zhu 07/23/25 13:43:
Home with visiting nurses, patient has been set up with [facility].
[facility]
[phone]

Original Note:
Patient is for discharge to home home today.
Plan; Home no needs.
== END 2025-07-23 14:18 | disposition home health service (06) | DRG 378 ==
LOC: 4 WEST ACU 16:47
PROVIDERS: Registered Nurse; ADMITTING PHYSICIAN Internal Medicine; CONSULT PHYSICIAN Internal Medicine Gastroenterology; EMERGENCY PHYSICIAN Emergency Medicine; FAMILY PHYSICIAN Internal Medicine
PROC: 30233N1 Transfusion of Nonautologous Red Blood Cells into Peripheral Vein, Percutaneous Approach (ICD-10-PCS; 2025-07-21)
PROC: 0DB58ZX Excision of Esophagus, Via Natural or Artificial Opening Endoscopic, Diagnostic (ICD-10-PCS; 2025-07-22)
DX: K92.2 Gastrointestinal hemorrhage, unspecified (principal); D62 Acute posthemorrhagic anemia; G45.9 Transient cerebral ischemic attack, unspecified; I50.30 Unspecified diastolic (congestive) heart failure; G61.0 Guillain-Barre syndrome; K31.5 Obstruction of duodenum; K22.11 Ulcer of esophagus with bleeding; M54.40 Lumbago with sciatica, unspecified side; Z86.73 Personal history of transient ischemic attack (TIA), and cerebral infarction without residual deficits; I11.0 Hypertensive heart disease with heart failure; Z87.891 Personal history of nicotine dependence; K21.9 Gastro-esophageal reflux disease without esophagitis; K22.2 Esophageal obstruction; K22.89 Other specified disease of esophagus; K64.8 Other hemorrhoids; Z79.82 Long term (current) use of aspirin; Z85.038 Personal history of other malignant neoplasm of large intestine; Z99.3 Dependence on wheelchair
CPT/HCPCS: 72100; 74177; 80048; 80053; 82607; 82728; 82746; 83540; 83550; 85014; 85018; 85025; 85027; 85610; 85730; 86850; 86900; 86901; 86920; 88305; 88342; 96365; 96366; 97161; 99291; P9016; Q9967